=== PATIENT | female | born 1935 ===

== ENCOUNTER 2018-12-17 18:34 | Inpatient (IN) | payer MEDICARE ==
--- NOTE | 2018-12-17 19:59 | ED PDOC ---
HPI: Trauma/Fall - HPI Time Seen by Provider: 12/17/18 19:21 Chief Complaint (Nursing): Trauma Chief Complaint (Provider): Trauma History Per: Family (step-daughters) History/Exam Limitations: clinical condition Additional Complaint(s): 83 year old female with past history of dementia, arrives to the emergency department with step-daughters for an evaluation of possible fall injury. Step-daughters states that they came to visit the patient at home when they found her on the ground, possible since last night. Unable to determine events leading up to fall due to patient's clinical condition. Step-daughters report possible pain emanating from hip as patient appears with grimace upon movement, although, the patient actively denies experiencing pain. PCP: none provided Past Medical History Reviewed: Historical Data, Nursing Documentation, Vital Signs Vital Signs: Last Vital Signs Temp 98.4 F 12/17/18 18:36 Pulse 130 H 12/17/18 18:36 Resp 16 12/17/18 18:36 BP 142/89 12/17/18 18:36 Pulse Ox 96 12/17/18 18:36 - Medical History PMH: Dementia Denies: Chronic Kidney Disease - Family History Family History: States: Unknown Family Hx - Allergies Allergies/Adverse Reactions: Allergies Allergy/AdvReac Type Severity Reaction Status Date / Time No Known Allergies Allergy Verified 12/17/18 18:41 Review of Systems Review Of Systems: ROS cannot be obtained secondary to pt's inabilty to answer questions. Physical Exam - Reviewed Nursing Documentation Reviewed: Yes Vital Signs Reviewed: Yes - Physical Exam Appears: Positive for: Non-toxic, No Acute Distress Head Exam: Positive for: ATRAUMATIC, NORMAL INSPECTION, NORMOCEPHALIC Skin: Positive for: Normal Color Eye Exam: Positive for: Normal appearance, EOMI, PERRL Neck: Positive for: Normal, Painless ROM, Supple. Negative for: Pain On Movement Of Neck (or palpation) Cardiovascular/Chest: Positive for: Regular Rate, Rhythm. Negative for: Murmur Respiratory: Positive for: Normal Breath Sounds. Negative for: Respiratory Distress Gastrointestinal/Abdominal: Positive for: Normal Exam, Soft. Negative for: Tenderness Back: Positive for: Other (satge II sacral ulcers without pus or discharge). Negative for: Decreased ROM (or hip tenderness bilaterally) Extremity: Positive for: Normal ROM (upper/lower). 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 Unaware of the current city. Able to confirm ). Negative for: Oriented - Laboratory Results Result Diagrams: 12/17/18 21:58 12/17/18 21:58 - ECG O2 Sat by Pulse Oximetry: 96 (RA) Pulse Ox Interpretation: Normal Medical Decision Making Medical Decision Making: Time: 1929 Initial Plan: work up for possible syncope, prolonged immobility, and new sacral ulcers * Labs * CT head * EKG * CXR * XR lumbar spine * XR hip (ABNER) * Blood culture Time: 2116 --CT head FINDINGS: BRAIN No acute intraparenchymal hemorrhage. No mass lesion. No CT evidence for acute territorial infarct. No midline shift or extra-axial collections. There is moderate age-appropriate cerebral/cerebellar atrophy. There are bilateral periventricular and subcortical white matter hyperlucencies compatible with mild chronic microvascular disease. VENTRICLES: No hydrocephalus. VASCULAR: Atherosclerotic vascular plaquing is noted within the carotid siphons bilaterally. ORBITS: The orbits are unremarkable. SINUSES AND MASTOIDS: The paranasal sinuses and mastoid air cells are clear. BONES: No fracture. SOFT TISSUES: Unremarkable. IMPRESSION: 1. No acute intracranial abnormality. 2. Age-appropriate moderate diffuse cerebral/cerebellar atrophy. 3. Mild chronic microvascular disease. 4. Atherosclerotic vascular plaquing within the carotid siphons bilaterally. Scribe Attestation: Documented by Maria Eugenia Ventura, acting as a scribe for Ree Ray MD. Provider Scribe Attestation: All medical record entries made by the Scribe were at my direction and personally dictated by me. I have reviewed the chart and agree that the record accurately reflects my personal performance of the history, physical exam, medical decision making, and the department course for this patient. I have also personally directed, reviewed, and agree with the discharge instructions and disposition. Disposition - Clinical Impression Clinical Impression: Syncope and collapse, Dehydration - Disposition Disposition Time: 23:00 Condition: GUARDED
[2018-12-17 22:18] LABS: VENOUS BLOOD GAS BASE EXCESS 6.1 mmol/L (0.0-2.0); VENOUS BLOOD GAS PCO2 46 mmHg (40-60); VENOUS BLOOD GAS PO2 41 mm/Hg (30-55); VENOUS BLOOD PH 7.44 (7.32-7.43)
[2018-12-17 22:28] LABS: PROTHROMBIN TIME 11.9 Seconds (9.8-13.1)
[2018-12-17 22:30] LABS: BASO % 0.1 % (0.0-2.0); EOS % 0.1 % (0.0-4.0); HEMOGLOBIN 12.9 g/dL (12.0-16.0); LYMPH # 1.1 K/uL (1.0-4.3); LYMPH % 9.4 % (20.0-40.0); MEAN CELL VOLUME 88.1 fl (81.0-99.0); MEAN CORPUSCULAR HEMOGLOBIN 28.9 pg (27.0-31.0); MEAN CORPUSCULAR HGB CONC 32.8 g/dL (33.0-37.0); MEAN PLATELET VOLUME 8.1 fl (7.2-11.7); MONO # 1.2 K/uL (0.0-0.8); MONO % 10.3 % (0.0-10.0); NEUT # 9.1 K/uL (1.8-7.0); NEUT % 80.1 % (50.0-75.0); PLATELET COUNT 198 K/uL (130-400); RBC 4.45 Mil/uL (3.80-5.20); RED CELL DISTRIBUTION WIDTH 14.4 % (11.5-14.5); WHITE BLOOD COUNT 11.3 K/uL (4.8-10.8)
[2018-12-17 22:31] LABS: PARTIAL THROMBOPLASTIN TIME 28.4 Seconds (25.6-37.1)
[2018-12-17 22:34] LABS: ALB/GLOB RATIO 1.2 (1.0-2.1); ALBUMIN 3.7 g/dL (3.5-5.0); ALT/SGPT 27 U/L (9-52); AST/SGOT 64 U/L (14-36); BLOOD UREA NITROGEN 24 mg/dl (7-17); CALCIUM 9.9 mg/dL (8.4-10.2); GFR NON-AFRICAN AMERICAN > 60
[2018-12-17 23:07] LABS: B-TYPE NATRIURETIC PEPTIDE 2180 pg/ml (0-900)
[2018-12-17] MEDS ORDERED: Sodium Chloride 0.9% 1,000 ML IV STA (23:10)
[2018-12-17 23:22] LABS: BANDS 4 % (0-2); LYMPHOCYTE 10 % (20-50); MONOCYTE 11 % (0-10); NEUTROPHIL 75 % (42-75); PLATELET ESTIMATE NORMAL (NORMAL); TOTAL CELLS COUNTED 100
[2018-12-18] MEDS ORDERED: Potassium Chloride 40 MEQ in Sodium Chloride 0.45% 1,000 ML IV SCH (01:15)
--- NOTE | 2018-12-18 01:18 | CP.PCM.HP ---
<LunaMatheuso - Last Filed: 12/18/18 03:58> History of Present Illness - History of Present Illness History of Present Illness: 83 y/o F with a PMHx of dementia was brought to ED due to AMS and s/p fall. No family members at bedside to provide Hx. On chart review: step-daughters visited patient at her home, pt was found on the ground, possible since last night, likely after a fall. Unable to determine events leading up to fall due to patient's clinical condition. Pt unable to bear weight on the right side. --On interview: pt only oriented to person. Pt able to speak but unable to state the reason for her ED visit. Pt does not know where shes is, current year or current month. PCP: none provided Unable to obtain history. ED Course: --Vital signs with mild tachycardia. --CBC showed leukocytosis, CMP showed hypokalemia. --Troponin elevated 0.2460. --Pro-BNP 2180-high --Head CT: No acute intracranial abnormality. Age-appropriate moderate diffuse cerebral/cerebellar atrophy. Mild chronic microvascular disease. Atherosclerotic vascular plaquing within the carotid siphons bilaterally. --CXR showed cardiomegaly. --EKG: sinus tachycardia and LBBB. --IV fluid administered. --Urinary straight cath at ED. Present on Admission - Present on Admission Any Indicators Present on Admission: Yes Decubitus Ulcer Present: Yes (Sacral) Decubitus Ulcer Stage: Unstageable Review of Systems - Review of Systems Systems not reviewed;Unavailable: Dementia Past Patient History - Past Social History Smoking Status: Never Smoked - CARDIAC Hx Cardiac Disorders: No - PULMONARY Hx Respiratory Disorders: No - NEUROLOGICAL Hx Dementia: Yes - HEENT Hx HEENT Problems: No - RENAL Hx Chronic Kidney Disease: No - ENDOCRINE/METABOLIC Hx Endocrine Disorders: No - HEMATOLOGICAL/ONCOLOGICAL Hx Blood Disorders: No - INTEGUMENTARY Hx Dermatological Problems: No - MUSCULOSKELETAL/RHEUMATOLOGICAL Hx Musculoskeletal Disorders: No - GASTROINTESTINAL Hx Gastrointestinal Disorders: No - GENITOURINARY/GYNECOLOGICAL Hx Genitourinary Disorders: No - PSYCHIATRIC Hx Psychophysiologic Disorder: No Hx Substance Use: No - SURGICAL HISTORY Hx Surgeries: Yes Other/Comment: 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 - ANESTHESIA Hx Anesthesia: Yes Hx Anesthesia Reactions: No Hx Malignant Hyperthermia: No Meds Allergies/Adverse Reactions: Allergies Allergy/AdvReac Type Severity Reaction Status Date / Time No Known Allergies Allergy Verified 12/17/18 18:41 Physical Exam - Constitutional Appears: No Acute Distress, Confused - Head Exam Head Exam: ATRAUMATIC, NORMOCEPHALIC - Eye Exam Eye Exam: EOMI, PERRL - ENT Exam ENT Exam: Mucous Membranes Dry - Neck Exam Neck exam: Positive for: Full Rom. Negative for: Lymphadenopathy, Tenderness - Respiratory Exam Respiratory Exam: NORMAL BREATHING PATTERN. absent: Rales, Rhonchi, Wheezes, Respiratory Distress - Cardiovascular Exam Cardiovascular Exam: Tachycardia, +S1, +S2 - GI/Abdominal Exam GI & Abdominal Exam: Soft. absent: Distended, Firm, Guarding, Tenderness - Extremities Exam Extremities exam: Negative for: calf tenderness, pedal edema - Neurological Exam Neurological exam: Altered Results - Vital Signs Recent Vital Signs: Last Vital Signs Temp 98.4 F 12/17/18 18:36 Pulse 122 H 12/17/18 23:56 Resp 25 H 12/17/18 23:56 BP 114/71 12/17/18 23:56 Pulse Ox 96 12/18/18 00:04 - Labs Result Diagrams: 12/17/18 21:58 12/17/18 21:58 Labs: Laboratory Results - last 24 hr 12/17/18 12/17/18 12/17/18 21:58 21:58 21:58 WBC 11.3 H RBC 4.45 Hgb 12.9 Hct 39.2 MCV 88.1 MCH 28.9 MCHC 32.8 L RDW 14.4 Plt Count 198 MPV 8.1 Neut % (Auto) 80.1 H Lymph % (Auto) 9.4 L [place] % (Auto) 10.3 H Eos % (Auto) 0.1 Baso % (Auto) 0.1 Neut # (Auto) 9.1 H Lymph # (Auto) 1.1 [place] # (Auto) 1.2 H Eos # (Auto) 0.0 Baso # (Auto) 0.0 Neutrophils % (Manual) 75 Band Neutrophils % 4 H Lymphocytes % (Manual) 10 L Monocytes % (Manual) 11 H Platelet Estimate Normal RBC Morphology Normal PT 11.9 INR 1.0 APTT 28.4 pO2 VBG pH VBG pCO2 VBG HCO3 VBG Total CO2 VBG O2 Sat (Calc) VBG Base Excess VBG Potassium Glucose Lactate FiO2 Sodium 141 Potassium 3.5 L Chloride 104 Carbon Dioxide 30 Anion Gap 11 BUN 24 H Creatinine 0.5 L Est GFR ( Amer) > 60 Est GFR (Non-Af Amer) > 60 Random Glucose 107 H Calcium 9.9 Total Bilirubin 0.8 AST 64 H ALT 27 Alkaline Phosphatase 95 Troponin I 0.2460 H* NT-Pro-B Natriuret Pep 2180 H Total Protein 6.8 Albumin 3.7 Globulin 3.1 Albumin/Globulin Ratio 1.2 Venous Blood Potassium Blood Type Antibody Screen BBK History Checked 12/17/18 12/17/18 21:58 22:12 WBC RBC Hgb Hct MCV MCH MCHC RDW Plt Count MPV Neut % (Auto) Lymph % (Auto) [place] % (Auto) Eos % (Auto) Baso % (Auto) Neut # (Auto) Lymph # (Auto) [place] # (Auto) Eos # (Auto) Baso # (Auto) Neutrophils % (Manual) Band Neutrophils % Lymphocytes % (Manual) Monocytes % (Manual) Platelet Estimate RBC Morphology PT INR APTT pO2 41 VBG pH 7.44 H VBG pCO2 46 VBG HCO3 29.2 VBG Total CO2 32.6 H VBG O2 Sat (Calc) 82.3 H VBG Base Excess 6.1 H VBG Potassium 3.8 Glucose 111 H Lactate 1.2 FiO2 21.0 Sodium 141.0 Potassium Chloride 106.0 Carbon Dioxide Anion Gap BUN Creatinine Est GFR ( Amer) Est GFR (Non-Af Amer) Random Glucose Calcium Total Bilirubin AST ALT Alkaline Phosphatase Troponin I NT-Pro-B Natriuret Pep Total Protein Albumin Globulin Albumin/Globulin Ratio Venous Blood Potassium 3.8 Blood Type O POSITIVE Antibody Screen Negative BBK History Checked No verified bt Assessment & Plan - Assessment and Plan (Free Text) Assessment: 83 y/o F with a PMHx of dementia was admitted for evaluation and management of altered mental status and s/p fall. PLAN: >Altered Mental Status --Afebrile, tachycardia, mild leukocytosis, mild hypokalemia, Head CT unremarkable. --Likely aggravation of dementia, need to rule out delirium, ?seizures/post- ictal, drug/alcohol intox. --Troponin elevated 0.2460. --Pro-BNP 2180-high --F/U dementia work-up --Need to f/u CPK levels. --Will re-evaluate and consider call family for Hx details. >S/P fall --At high risk of fall, ?syncope --Physical therapy/Occupational therapy eval and treat ordered. --Orthostatic BP measurement ordered. --Complete bed rest for now --Pt may need more supervision or activities modification. >Abnormal EKG/elevated troponin --Sinus tachycardia and LBBB on EKG --Troponin elevated 0.2460. Possibly --Pro-BNP 2180-high --CXR showed cardiomegaly. --Cardiology consult, Dr Chen >Hypokalemia --Serum K+ 3.5 --IV NSS with 30mEq ofg KCl ordered --F/U labs. >DTI --Sacral ulcer, unstageable --Wound care nurse consult. >DVT Prophylaxis --SCD's for now --Consider Lovenox after hemorrhage is ruled out. Case discussed with Dr Ron. Jeremy PGY-2 - Date & Time Date: 12/18/18 Time: 02:00 <Zac Ron - Last Filed: 12/18/18 10:35> Results - Vital Signs Recent Vital Signs: Last Vital Signs Temp 98.5 F 12/18/18 08:00 Pulse 108 H 12/18/18 08:00 Resp 18 12/18/18 08:00 BP 129/74 12/18/18 08:00 Pulse Ox 94 L 12/18/18 08:00 - Labs Result Diagrams: 12/18/18 04:31 12/18/18 04:31 Labs: Laboratory Results - last 24 hr 12/17/18 12/17/18 12/17/18 21:58 21:58 21:58 WBC 11.3 H RBC 4.45 Hgb 12.9 Hct 39.2 MCV 88.1 MCH 28.9 MCHC 32.8 L RDW 14.4 Plt Count 198 MPV 8.1 Neut % (Auto) 80.1 H Lymph % (Auto) 9.4 L [place] % (Auto) 10.3 H Eos % (Auto) 0.1 Baso % (Auto) 0.1 Neut # (Auto) 9.1 H Lymph # (Auto) 1.1 [place] # (Auto) 1.2 H Eos # (Auto) 0.0 Baso # (Auto) 0.0 Neutrophils % (Manual) 75 Band Neutrophils % 4 H Lymphocytes % (Manual) 10 L Monocytes % (Manual) 11 H Platelet Estimate Normal RBC Morphology Normal PT 11.9 INR 1.0 APTT 28.4 pO2 VBG pH VBG pCO2 VBG HCO3 VBG Total CO2 VBG O2 Sat (Calc) VBG Base Excess VBG Potassium Glucose Lactate FiO2 Sodium 141 Potassium 3.5 L Chloride 104 Carbon Dioxide 30 Anion Gap 11 BUN 24 H Creatinine 0.5 L Est GFR ( Amer) > 60 Est GFR (Non-Af Amer) > 60 Random Glucose 107 H Calcium 9.9 Magnesium Total Bilirubin 0.8 AST 64 H ALT 27 Alkaline Phosphatase 95 Total Creatine Kinase Troponin I 0.2460 H* NT-Pro-B Natriuret Pep 2180 H Total Protein 6.8 Albumin 3.7 Globulin 3.1 Albumin/Globulin Ratio 1.2 Vitamin B12 TSH 3rd Generation Venous Blood Potassium Urine Color Urine Clarity Urine pH Ur Specific [place] Urine Protein Urine Glucose (UA) Urine Ketones Urine Blood Urine Nitrate Urine Bilirubin Urine Urobilinogen Ur Leukocyte Esterase Urine RBC (Auto) Urine Microscopic WBC Ur Squamous Epith Cells Urine Bacteria Urine Opiates Screen Urine Methadone Screen Ur Barbiturates Screen Ur Phencyclidine Scrn Ur Amphetamines Screen U Benzodiazepines Scrn U Oth Cocaine Metabols U Cannabinoids Screen HIV-1 Ab Rapid Screen Blood Type Blood Type Confirm Antibody Screen BBK History Checked 12/17/18 12/17/18 12/18/18 21:58 22:12 04:31 WBC RBC Hgb Hct MCV MCH MCHC RDW Plt Count MPV Neut % (Auto) Lymph % (Auto) [place] % (Auto) Eos % (Auto) Baso % (Auto) Neut # (Auto) Lymph # (Auto) [place] # (Auto) Eos # (Auto) Baso # (Auto) Neutrophils % (Manual) Band Neutrophils % Lymphocytes % (Manual) Monocytes % (Manual) Platelet Estimate RBC Morphology PT INR APTT pO2 41 VBG pH 7.44 H VBG pCO2 46 VBG HCO3 29.2 VBG Total CO2 32.6 H VBG O2 Sat (Calc) 82.3 H VBG Base Excess 6.1 H VBG Potassium 3.8 Glucose 111 H Lactate 1.2 FiO2 21.0 Sodium 141.0 Potassium Chloride 106.0 Carbon Dioxide Anion Gap BUN Creatinine Est GFR ( Amer) Est GFR (Non-Af Amer) Random Glucose Calcium Magnesium Total Bilirubin AST ALT Alkaline Phosphatase Total Creatine Kinase Troponin I NT-Pro-B Natriuret Pep Total Protein Albumin Globulin Albumin/Globulin Ratio Vitamin B12 TSH 3rd Generation Venous Blood Potassium 3.8 Urine Color Urine Clarity Urine pH Ur Specific [place] Urine Protein Urine Glucose (UA) Urine Ketones Urine Blood Urine Nitrate Urine Bilirubin Urine Urobilinogen Ur Leukocyte Esterase Urine RBC (Auto) Urine Microscopic WBC Ur Squamous Epith Cells Urine Bacteria Urine Opiates Screen Urine Methadone Screen Ur Barbiturates Screen Ur Phencyclidine Scrn Ur Amphetamines Screen U Benzodiazepines Scrn U Oth Cocaine Metabols U Cannabinoids Screen HIV-1 Ab Rapid Screen Blood Type O POSITIVE Blood Type Confirm O POSITIVE Antibody Screen Negative BBK History Checked No verified bt 12/18/18 12/18/18 12/18/18 04:31 04:31 06:31 WBC 9.6 RBC 4.23 Hgb 12.3 Hct 37.7 MCV 89.0 MCH 29.0 MCHC 32.5 L RDW 14.4 Plt Count 181 MPV 7.9 Neut % (Auto) 81.6 H Lymph % (Auto) 9.5 L [place] % (Auto) 8.6 Eos % (Auto) 0.1 Baso % (Auto) 0.2 Neut # (Auto) 7.8 H Lymph # (Auto) 0.9 L [place] # (Auto) 0.8 Eos # (Auto) 0.0 Baso # (Auto) 0.0 Neutrophils % (Manual) Band Neutrophils % Lymphocytes % (Manual) Monocytes % (Manual) Platelet Estimate RBC Morphology PT INR APTT pO2 VBG pH VBG pCO2 VBG HCO3 VBG Total CO2 VBG O2 Sat (Calc) VBG Base Excess VBG Potassium Glucose Lactate FiO2 Sodium 141 Potassium 3.4 L Chloride 105 Carbon Dioxide 32 H Anion Gap 7 L BUN 24 H Creatinine 0.5 L Est GFR ( Amer) > 60 Est GFR (Non-Af Amer) > 60 Random Glucose 100 Calcium 9.0 Magnesium 2.0 Total Bilirubin AST ALT Alkaline Phosphatase Total Creatine Kinase 877 H Troponin I 0.1760 H* NT-Pro-B Natriuret Pep Total Protein Albumin Globulin Albumin/Globulin Ratio Vitamin B12 235 L TSH 3rd Generation 0.53 Venous Blood Potassium Urine Color Urine Clarity Urine pH Ur Specific [place] Urine Protein Urine Glucose (UA) Urine Ketones Urine Blood Urine Nitrate Urine Bilirubin Urine Urobilinogen Ur Leukocyte Esterase Urine RBC (Auto) Urine Microscopic WBC Ur Squamous Epith Cells Urine Bacteria Urine Opiates Screen Urine Methadone Screen Ur Barbiturates Screen Ur Phencyclidine Scrn Ur Amphetamines Screen U Benzodiazepines Scrn U Oth Cocaine Metabols U Cannabinoids Screen HIV-1 Ab Rapid Screen Non reactive Blood Type Blood Type Confirm Antibody Screen BBK History Checked 12/18/18 12/18/18 07:05 07:07 WBC RBC Hgb Hct MCV MCH MCHC RDW Plt Count MPV Neut % (Auto) Lymph % (Auto) [place] % (Auto) Eos % (Auto) Baso % (Auto) Neut # (Auto) Lymph # (Auto) [place] # (Auto) Eos # (Auto) Baso # (Auto) Neutrophils % (Manual) Band Neutrophils % Lymphocytes % (Manual) Monocytes % (Manual) Platelet Estimate RBC Morphology PT INR APTT pO2 VBG pH VBG pCO2 VBG HCO3 VBG Total CO2 VBG O2 Sat (Calc) VBG Base Excess VBG Potassium Glucose Lactate FiO2 Sodium Potassium Chloride Carbon Dioxide Anion Gap BUN Creatinine Est GFR ( Amer) Est GFR (Non-Af Amer) Random Glucose Calcium Magnesium Total Bilirubin AST ALT Alkaline Phosphatase Total Creatine Kinase Troponin I NT-Pro-B Natriuret Pep Total Protein Albumin Globulin Albumin/Globulin Ratio Vitamin B12 TSH 3rd Generation Venous Blood Potassium Urine Color Yellow Urine Clarity Slighty-cloudy Urine pH 5.0 Ur Specific [place] 1.021 Urine Protein 100 Urine Glucose (UA) Neg Urine Ketones 20 Urine Blood Large Urine Nitrate Positive H Urine Bilirubin Negative Urine Urobilinogen 0.2-1.0 Ur Leukocyte Esterase Neg Urine RBC (Auto) 3 Urine Microscopic WBC < 1 Ur Squamous Epith Cells < 1 Urine Bacteria Many H Urine Opiates Screen Negative Urine Methadone Screen Negative Ur Barbiturates Screen Negative Ur Phencyclidine Scrn Negative Ur Amphetamines Screen Negative U Benzodiazepines Scrn Negative U Oth Cocaine Metabols Negative U Cannabinoids Screen Negative HIV-1 Ab Rapid Screen Blood Type Blood Type Confirm Antibody Screen BBK History Checked Attending/Attestation - Attestation I have personally seen and examined this patient.: Yes I have fully participated in the care of the patient.: Yes I have reviewed all pertinent clinical information: Yes Notes (Text): 12/18/18 10:10 I saw, examined and discussed this patient with Dr Luna. i agree with the assessment and plan outlined. This is an 83 years old female with hx of dementia who was found lying at her home for unknown period of time. Apparently she has difficulty in bearing weight on the right side but denies pain. CT head, X ray of chest, hips and lumbar spine showed no overt abnormality. We will treat for Altered Mental status due to worsening dementia and probable fall. R/O UTI in the elderly. Treat Dehydration and Hypokalemia. The Elevated Troponin could be due to the Rhabdomyolisis. Follow serial Troponin, Cardiology will be consulted Zac Ron MD
[2018-12-18 04:51] LABS: BASO % 0.2 % (0.0-2.0); EOS % 0.1 % (0.0-4.0); HEMOGLOBIN 12.3 g/dL (12.0-16.0); LYMPH # 0.9 K/uL (1.0-4.3); LYMPH % 9.5 % (20.0-40.0); MEAN CORPUSCULAR HGB CONC 32.5 g/dL (33.0-37.0); MEAN PLATELET VOLUME 7.9 fl (7.2-11.7); MONO # 0.8 K/uL (0.0-0.8); MONO % 8.6 % (0.0-10.0); NEUT # 7.8 K/uL (1.8-7.0); NEUT % 81.6 % (50.0-75.0); RBC 4.23 Mil/uL (3.80-5.20); RED CELL DISTRIBUTION WIDTH 14.4 % (11.5-14.5); WHITE BLOOD COUNT 9.6 K/uL (4.8-10.8)
[2018-12-18 04:58] LABS: BLOOD UREA NITROGEN 24 mg/dl (7-17); GFR NON-AFRICAN AMERICAN > 60
[2018-12-18] MEDS ORDERED: Potassium Chloride 20 mEq/15 ml LIQ UD PO ONE (05:38)
[2018-12-18 07:25] LABS: SQUAMOUS EPITHIAL < 1 /hpf (0-5); URINE BACTERIA MANY (<OCC); URINE BILIRUBIN NEGATIVE (NEGATIVE); URINE BLOOD LARGE (NEGATIVE); URINE CLARITY SLIGHTY-CLOUDY (Clear); URINE COLOR YELLOW (YELLOW); URINE GLUCOSE (UA) NEG (NEGATIVE); URINE LEUKOCYTE ESTERASE NEG Leu/uL (Negative); URINE PROTEIN 100 mg/dL (NEGATIVE); URINE UROBILINOGEN 0.2-1.0 mg/dL (0.2-1.0)
[2018-12-18 07:30] LABS: BARBITURATES, UR NEGATIVE (NEGATIVE); BENZODIAZEPINES, UR NEGATIVE (NEGATIVE); OPIATES, UR NEGATIVE (NEGATIVE); PHENCYCLIDINE, UR NEGATIVE (NEGATIVE)
--- NOTE | 2018-12-18 08:35 | CT ---
Date of service: 12/17/2018 PROCEDURE: CT HEAD WITHOUT CONTRAST. HISTORY: AMS, fall COMPARISON: None available. TECHNIQUE: Axial computed tomography images were obtained through the head/brain without intravenous contrast. Radiation dose: Total exam DLP = 801.45 mGy-cm. This CT exam was performed using one or more of the following dose reduction techniques: Automated exposure control, adjustment of the mA and/or kV according to patient size, and/or use of iterative reconstruction technique. FINDINGS: HEMORRHAGE: No intracranial hemorrhage. BRAIN: No mass effect or edema. Mild diffuse age-appropriate atrophy. Moderate patchy and confluent periventricular and deep white matter lucency consistent with microvascular white matter ischemic change. No evidence of acute infarct. VENTRICLES: Unremarkable. No hydrocephalus. CALVARIUM: Unremarkable. PARANASAL SINUSES: Unremarkable as visualized. No significant inflammatory changes. MASTOID AIR CELLS: Unremarkable as visualized. No inflammatory changes. OTHER FINDINGS: None. IMPRESSION: No intracranial mass, hemorrhage or evidence of acute infarct. Chronic white matter ischemic change. The preliminary findings for this examination were reported by [facility] at 9:17 p.m. on 12/17/2018. There is concurrence of this report with the preliminary findings.
--- NOTE | 2018-12-18 08:45 | CARD ---
APPROVED REPORT Date of service: 12/17/2018 EKG Measurement Heart [id number] <Conclusion> Sinus tachycardia Left bundle branch block Abnormal ECG
--- NOTE | 2018-12-18 09:30 | CP.PCM.CON ---
History of Present Illness - History of Present Illness History of Present Illness: This 83-year-old female who lives alone and is being checked regularly by her family including her who lives in an upstairs apartment, was brought to the emergency room after having fallen at home and was unable to help her self. She was probably on the ground for more than 12 hours. According to her daughter that she is gradually developing cognitive deficit. She is mostly at home and her family does shopping for her and some part of cooking as well. She is able to ambulate in her apartment and otherwise looks after herself. She does tend to be confused about recent events. She was not able to explain how she arrived at the hospital or for what particular reason. There has been no prior falling at home. The patient has had a breast malignancy which has been operated upon and there has not been any recurrence for the last 4-5 years. She has been taking an oral hormone suppressing pill for the same. Hypertension or diabetes and has not been hospitalized for any other illness other than her breast malignancy. She has never been a smoker and has never suffered a myocardial infarction or symptoms of congestive cardiac failure. Physical examination shows an elderly lady who answers simple questions readily but is confused about recent events. She was afebrile awake and alert. Her respiratory rate was 14 breaths/min and her heart rate was 64 bpm and regular. Her jugular venous pressure was not elevated and there was no edema over lower extremity. Her blood pressure was 134/80 mmHg. The pedal pulses were feeble but distinctly present. There were no carotid bruits. Thyroid was not enlarged. Extremities were warm and nailbeds were pink. There was no central or peripheral cyanosis. [place] was not palpable the first and second heart sounds were normal. There was no murmur or gallop. There were no rales. Her abdomen was soft liver and spleen were not palpable. Her electrocardiogram showed sinus tachycardia with a left bundle branch block pattern. No prior electrocardiogram was available for comparison. Her lab data showed elevated troponin with total CK level elevated to approximately 7 times the upper limit of normal. The rest of the labs were noted. Impression:: Elevated troponin most likely due to rhabdomyolysis secondary to muscle injury secondary to the fall as well as a prolonged period of lying on the floor. Left bundle branch block. 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 The patient will have an echocardiogram to evaluate her left ventricular systolic function. No evidence of acute coronary syndrome was detected here. Past Patient History - Past Social History Smoking Status: Never Smoked - CARDIAC Hx Cardiac Disorders: No - PULMONARY Hx Respiratory Disorders: No - NEUROLOGICAL Hx Dementia: Yes - HEENT Hx HEENT Problems: No - RENAL Hx Chronic Kidney Disease: No - ENDOCRINE/METABOLIC Hx Endocrine Disorders: No - HEMATOLOGICAL/ONCOLOGICAL Hx Blood Disorders: No - INTEGUMENTARY Hx Dermatological Problems: No - MUSCULOSKELETAL/RHEUMATOLOGICAL Hx Musculoskeletal Disorders: No - GASTROINTESTINAL Hx Gastrointestinal Disorders: No - GENITOURINARY/GYNECOLOGICAL Hx Genitourinary Disorders: No - PSYCHIATRIC Hx Psychophysiologic Disorder: No Hx Substance Use: No - SURGICAL HISTORY Hx Surgeries: Yes Other/Comment: 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 - ANESTHESIA Hx Anesthesia: Yes Hx Anesthesia Reactions: No Hx Malignant Hyperthermia: No Meds Allergies/Adverse Reactions: Allergies Allergy/AdvReac Type Severity Reaction Status Date / Time No Known Allergies Allergy Verified 12/17/18 18:41 - Medications Medications: Current Medications Cyanocobalamin (Vitamin B12 1000 Mcg/Ml Inj) 1,000 mcg IM DAILY [facility] Potassium Chloride 40 meq/ (Sodium Chloride) 1,020 mls @ 125 mls/hr IV .[id number] [facility] Stop: 12/18/18 09:24 Last Admin: 12/18/18 02:00 Dose: 125 mls/hr Results - Vital Signs Recent Vital Signs: Last Vital Signs Temp 98.5 F 12/18/18 08:00 Pulse 108 H 12/18/18 08:00 Resp 18 12/18/18 08:00 BP 129/74 12/18/18 08:00 Pulse Ox 94 L 12/18/18 08:00 - Labs Result Diagrams: 12/18/18 04:31 12/18/18 04:31 Labs: Laboratory Results - last 24 hr 12/17/18 12/17/18 12/17/18 21:58 21:58 21:58 WBC 11.3 H RBC 4.45 Hgb 12.9 Hct 39.2 MCV 88.1 MCH 28.9 MCHC 32.8 L RDW 14.4 Plt Count 198 MPV 8.1 Neut % (Auto) 80.1 H Lymph % (Auto) 9.4 L [place] % (Auto) 10.3 H Eos % (Auto) 0.1 Baso % (Auto) 0.1 Neut # (Auto) 9.1 H Lymph # (Auto) 1.1 [place] # (Auto) 1.2 H Eos # (Auto) 0.0 Baso # (Auto) 0.0 Neutrophils % (Manual) 75 Band Neutrophils % 4 H Lymphocytes % (Manual) 10 L Monocytes % (Manual) 11 H Platelet Estimate Normal RBC Morphology Normal PT 11.9 INR 1.0 APTT 28.4 pO2 VBG pH VBG pCO2 VBG HCO3 VBG Total CO2 VBG O2 Sat (Calc) VBG Base Excess VBG Potassium Glucose Lactate FiO2 Sodium 141 Potassium 3.5 L Chloride 104 Carbon Dioxide 30 Anion Gap 11 BUN 24 H Creatinine 0.5 L Est GFR ( Amer) > 60 Est GFR (Non-Af Amer) > 60 Random Glucose 107 H Calcium 9.9 Magnesium Total Bilirubin 0.8 AST 64 H ALT 27 Alkaline Phosphatase 95 Total Creatine Kinase Troponin I 0.2460 H* NT-Pro-B Natriuret Pep 2180 H Total Protein 6.8 Albumin 3.7 Globulin 3.1 Albumin/Globulin Ratio 1.2 Vitamin B12 TSH 3rd Generation Venous Blood Potassium Urine Color Urine Clarity Urine pH Ur Specific [place] Urine Protein Urine Glucose (UA) Urine Ketones Urine Blood Urine Nitrate Urine Bilirubin Urine Urobilinogen Ur Leukocyte Esterase Urine RBC (Auto) Urine Microscopic WBC Ur Squamous Epith Cells Urine Bacteria Urine Opiates Screen Urine Methadone Screen Ur Barbiturates Screen Ur Phencyclidine Scrn Ur Amphetamines Screen U Benzodiazepines Scrn U Oth Cocaine Metabols U Cannabinoids Screen HIV-1 Ab Rapid Screen Blood Type Blood Type Confirm Antibody Screen BBK History Checked 12/17/18 12/17/18 12/18/18 21:58 22:12 04:31 WBC RBC Hgb Hct MCV MCH MCHC RDW Plt Count MPV Neut % (Auto) Lymph % (Auto) [place] % (Auto) Eos % (Auto) Baso % (Auto) Neut # (Auto) Lymph # (Auto) [place] # (Auto) Eos # (Auto) Baso # (Auto) Neutrophils % (Manual) Band Neutrophils % Lymphocytes % (Manual) Monocytes % (Manual) Platelet Estimate RBC Morphology PT INR APTT pO2 41 VBG pH 7.44 H VBG pCO2 46 VBG HCO3 29.2 VBG Total CO2 32.6 H VBG O2 Sat (Calc) 82.3 H VBG Base Excess 6.1 H VBG Potassium 3.8 Glucose 111 H Lactate 1.2 FiO2 21.0 Sodium 141.0 Potassium Chloride 106.0 Carbon Dioxide Anion Gap BUN Creatinine Est GFR ( Amer) Est GFR (Non-Af Amer) Random Glucose Calcium Magnesium Total Bilirubin AST ALT Alkaline Phosphatase Total Creatine Kinase Troponin I NT-Pro-B Natriuret Pep Total Protein Albumin Globulin Albumin/Globulin Ratio Vitamin B12 TSH 3rd Generation Venous Blood Potassium 3.8 Urine Color Urine Clarity Urine pH Ur Specific [place] Urine Protein Urine Glucose (UA) Urine Ketones Urine Blood Urine Nitrate Urine Bilirubin Urine Urobilinogen Ur Leukocyte Esterase Urine RBC (Auto) Urine Microscopic WBC Ur Squamous Epith Cells Urine Bacteria Urine Opiates Screen Urine Methadone Screen Ur Barbiturates Screen Ur Phencyclidine Scrn Ur Amphetamines Screen U Benzodiazepines Scrn U Oth Cocaine Metabols U Cannabinoids Screen HIV-1 Ab Rapid Screen Blood Type O POSITIVE Blood Type Confirm O POSITIVE Antibody Screen Negative BBK History Checked No verified bt 12/18/18 12/18/18 12/18/18 04:31 04:31 06:31 WBC 9.6 RBC 4.23 Hgb 12.3 Hct 37.7 MCV 89.0 MCH 29.0 MCHC 32.5 L RDW 14.4 Plt Count 181 MPV 7.9 Neut % (Auto) 81.6 H Lymph % (Auto) 9.5 L [place] % (Auto) 8.6 Eos % (Auto) 0.1 Baso % (Auto) 0.2 Neut # (Auto) 7.8 H Lymph # (Auto) 0.9 L [place] # (Auto) 0.8 Eos # (Auto) 0.0 Baso # (Auto) 0.0 Neutrophils % (Manual) Band Neutrophils % Lymphocytes % (Manual) Monocytes % (Manual) Platelet Estimate RBC Morphology PT INR APTT pO2 VBG pH VBG pCO2 VBG HCO3 VBG Total CO2 VBG O2 Sat (Calc) VBG Base Excess VBG Potassium Glucose Lactate FiO2 Sodium 141 Potassium 3.4 L Chloride 105 Carbon Dioxide 32 H Anion Gap 7 L BUN 24 H Creatinine 0.5 L Est GFR ( Amer) > 60 Est GFR (Non-Af Amer) > 60 Random Glucose 100 Calcium 9.0 Magnesium 2.0 Total Bilirubin AST ALT Alkaline Phosphatase Total Creatine Kinase 877 H Troponin I 0.1760 H* NT-Pro-B Natriuret Pep Total Protein Albumin Globulin Albumin/Globulin Ratio Vitamin B12 235 L TSH 3rd Generation 0.53 Venous Blood Potassium Urine Color Urine Clarity Urine pH Ur Specific [place] Urine Protein Urine Glucose (UA) Urine Ketones Urine Blood Urine Nitrate Urine Bilirubin Urine Urobilinogen Ur Leukocyte Esterase Urine RBC (Auto) Urine Microscopic WBC Ur Squamous Epith Cells Urine Bacteria Urine Opiates Screen Urine Methadone Screen Ur Barbiturates Screen Ur Phencyclidine Scrn Ur Amphetamines Screen U Benzodiazepines Scrn U Oth Cocaine Metabols U Cannabinoids Screen HIV-1 Ab Rapid Screen Non reactive Blood Type Blood Type Confirm Antibody Screen BBK History Checked 12/18/18 12/18/18 07:05 07:07 WBC RBC Hgb Hct MCV MCH MCHC RDW Plt Count MPV Neut % (Auto) Lymph % (Auto) [place] % (Auto) Eos % (Auto) Baso % (Auto) Neut # (Auto) Lymph # (Auto) [place] # (Auto) Eos # (Auto) Baso # (Auto) Neutrophils % (Manual) Band Neutrophils % Lymphocytes % (Manual) Monocytes % (Manual) Platelet Estimate RBC Morphology PT INR APTT pO2 VBG pH VBG pCO2 VBG HCO3 VBG Total CO2 VBG O2 Sat (Calc) VBG Base Excess VBG Potassium Glucose Lactate FiO2 Sodium Potassium Chloride Carbon Dioxide Anion Gap BUN Creatinine Est GFR ( Amer) Est GFR (Non-Af Amer) Random Glucose Calcium Magnesium Total Bilirubin AST ALT Alkaline Phosphatase Total Creatine Kinase Troponin I NT-Pro-B Natriuret Pep Total Protein Albumin Globulin Albumin/Globulin Ratio Vitamin B12 TSH 3rd Generation Venous Blood Potassium Urine Color Yellow Urine Clarity Slighty-cloudy Urine pH 5.0 Ur Specific [place] 1.021 Urine Protein 100 Urine Glucose (UA) Neg Urine Ketones 20 Urine Blood Large Urine Nitrate Positive H Urine Bilirubin Negative Urine Urobilinogen 0.2-1.0 Ur Leukocyte Esterase Neg Urine RBC (Auto) 3 Urine Microscopic WBC < 1 Ur Squamous Epith Cells < 1 Urine Bacteria Many H Urine Opiates Screen Negative Urine Methadone Screen Negative Ur Barbiturates Screen Negative Ur Phencyclidine Scrn Negative Ur Amphetamines Screen Negative U Benzodiazepines Scrn Negative U Oth Cocaine Metabols Negative U Cannabinoids Screen Negative HIV-1 Ab Rapid Screen Blood Type Blood Type Confirm Antibody Screen BBK History Checked
--- NOTE | 2018-12-18 14:39 | RAD ---
Date of service: 12/17/2018 PROCEDURE: Radiographs of the Lumbar Spine. HISTORY: lower back pain COMPARISON: No prior. FINDINGS: BONES: There is [id number] compression deformity of T12 vertebral body. There is also mild compression deformity of L1 and slight compression deformity at the superior endplate of L3. Diffuse osteopenic changes are noted. Moderate degenerative changes are noted. DISC SPACES: There is anterior spondylolisthesis of L4 relative to L5. OTHER FINDINGS: None. IMPRESSION: Multiple compression deformity more prominent at T12. Diffuse osteoporosis. Anterior spondylolisthesis of L4 relative to L5. Moderate degenerative changes. Moderate constipation.
--- NOTE | 2018-12-18 14:43 | RAD ---
PROCEDURE: Radiographs of the pelvis and bilateral hips HISTORY: BL hip pain COMPARISON: None. TECHNIQUE: 2 views obtained. FINDINGS: BONES: Pelvis: Unremarkable. Right hip:No evidence of acute fracture or dislocation. Left hip:No evidence of acute fracture or dislocation. JOINTS: Right hip: Moderate osteoarthritic changes. Left hip: Moderate osteoarthritic changes Sacroiliac Joints: Unremarkable. Pubic symphysis: Unremarkable. SOFT TISSUES: Normal. OTHER FINDINGS: None. IMPRESSION: No evidence of acute fracture or dislocation. Moderate osteoarthritic changes.
[2018-12-18] MEDS: Potassium Chl 20 mEq in NS 1,000 ML IV SCH ×2 (15:40→22:00)
[2018-12-18] MEDS: Enoxaparin 40 mg Syringe SC SCH (15:42)
--- NOTE | 2018-12-18 16:42 | RAD ---
Date of service: 12/17/2018 HISTORY: possible admission COMPARISON: No prior. TECHNIQUE: 1 view obtained. FINDINGS: LUNGS: No active pulmonary disease. PLEURA: No significant pleural effusion identified, no pneumothorax apparent. CARDIOVASCULAR: No aortic atherosclerotic calcification present. Normal cardiac size. No pulmonary vascular congestion. OSSEOUS STRUCTURES: No significant abnormalities. VISUALIZED UPPER ABDOMEN: Normal. OTHER FINDINGS: None. IMPRESSION: No active disease.
[2018-12-18 19:22] VITALS: BMI 28.7
[2018-12-19] MEDS: Potassium Chl 20 mEq in NS 1,000 ML IV SCH ×2 (03:06→08:47)
[2018-12-19 05:40] LABS: HEMOGLOBIN 11.2 g/dL (12.0-16.0); MEAN CELL VOLUME 89.4 fl (81.0-99.0); MEAN CORPUSCULAR HGB CONC 32.4 g/dL (33.0-37.0); RBC 3.86 Mil/uL (3.80-5.20); RED CELL DISTRIBUTION WIDTH 14.6 % (11.5-14.5); WHITE BLOOD COUNT 7.6 K/uL (4.8-10.8)
[2018-12-19 06:01] LABS: BLOOD UREA NITROGEN 28 mg/dl (7-17); CALCIUM 8.9 mg/dL (8.4-10.2); GFR NON-AFRICAN AMERICAN > 60
--- NOTE | 2018-12-19 08:13 | CARD ---
APPROVED REPORT Date of service: 12/18/2018 EXAM: Two-dimensional and M-mode echocardiogram with Doppler and color Doppler. Other Information Quality : AverageRhythm : LBBB INDICATION Abnormal EKG/Arrhythmia 2D DIMENSIONS IVSd1.25 (0.7-1.1cm)LVDd3.38 (3.9-5.9cm) LVOT Diameter1.99 (1.8-2.4cm)PWd1.26 (0.7-1.1cm) IVSs1.45 (0.8-1.2cm)LVDs3.00 (2.5-4.0cm) FS (%) 11.2 %PWs1.49 (0.8-1.2cm) M-Mode DIMENSIONS Left Atrium (MM)3.18 (2.5-4.0cm)IVSd0.97 (0.7-1.1cm) Aortic Root3.38 (2.2-3.7cm)LVDd4.41 (4.0-5.6cm) Aortic Cusp Exc.1.79 (1.5-2.0cm)PWd1.44 (0.7-1.1cm) IVSs1.71 cmFS (%) 33 % LVDs2.97 (2.0-3.8cm)PWs1.88 cm Aortic Valve AoV Peak Ywwrqafk838.4cm/sAoV VTI22.3cmAO Peak GR.10mmHg LVOT Peak Jyyonysw17.9cm/sLVOT VTI13.32cmAO Mean GR.6mmHg CORAL (VMAX)1.62qj8LLL (VTI)1.08cm2 Mitral Valve E/A ratio0.0 TDI E/Lateral E'0.0E/Medial E'0.0 LEFT VENTRICLE The left ventricle is normal size. There is normal left ventricular wall thickness. Left ventricle systolic function is normal. LVEF is 55-60%. Septum had abnormal motion due to LBBB Other segments contracted normally. Transmitral Doppler flow pattern is Grade I-abnormal relaxation pattern. RIGHT VENTRICLE The right ventricle is normal size. There is normal right ventricular wall thickness. The right ventricular systolic function is normal. ATRIA The left atrium size is normal. The right atrium size is normal. AORTIC VALVE The aortic valve is normal in structure. No aortic regurgitation is present. There is no aortic valvular stenosis. MITRAL VALVE The mitral valve is normal in structure. There is no evidence of mitral valve prolapse. There is no mitral valve stenosis. There is no mitral valve regurgitation noted. TRICUSPID VALVE The tricuspid valve is normal in structure. There is no tricuspid valve regurgitation noted. PULMONIC VALVE The pulmonary valve is normal in structure. There is no pulmonic valvular regurgitation. GREAT VESSELS The aortic root is normal in size. The IVC is normal in size and collapses >50% with inspiration. PERICARDIAL EFFUSION There is a small circumferential pericardial effusion. <Conclusion> Echo window was poor and so the images were very poor in quality. The left ventricle is normal size. There is normal left ventricular wall thickness. Septum had abnormal motion due to LBBB Other segments contracted normally. Left ventricle systolic function is normal. LVEF is 55-60%. Transmitral Doppler flow pattern is Grade I-abnormal relaxation pattern.
--- NOTE | 2018-12-19 08:32 | CARD ---
APPROVED REPORT Date of service: 12/18/2018 EKG Measurement Heart [id number] <Conclusion> Sinus tachycardia Possible Left atrial enlargement Anterior infarct, age undetermined Abnormal ECG
[2018-12-19] MEDS: Enoxaparin 40 mg Syringe SC SCH (08:45)
--- NOTE | 2018-12-19 11:24 | CT ---
Date of service: 12/19/2018 PROCEDURE: CT Lumbar Spine without contrast HISTORY: compression fracture T12 COMPARISON: 12/17/2018. Lumbar spine radiographs TECHNIQUE: Axial computed tomography images were obtained of the lumbar spine without the use of intravenous contrast. Coronal and sagittal reformatted images were created and reviewed. Radiation dose: Total exam DLP = 855.46 mGy-cm. This CT exam was performed using one or more of the following dose reduction techniques: Automated exposure control, adjustment of the mA and/or kV according to patient size, and/or use of iterative reconstruction technique. FINDINGS: VERTEBRAE: No evidence of compression deformity. Small node formation T12 vertebral body and L2 vertebral body. DISCS/SPINAL CANAL/NEURAL FORAMINA: L1-2: Unremarkable. L2-3: Unremarkable. L3-4: Bulging annulus fibrosus, posterior element hypertrophy resulting in mild spinal stenosis. L4-5: Grade 1 anterolisthesis. Moderate bulging annulus. Evidence of canal stenosis. L5-S1: Vacuum disc phenomenon. Mild bulging annulus fibrosus. PARASPINAL SOFT TISSUES: Unremarkable. OTHER FINDINGS: T12 vertebral body: No significant compression deformity. Vacuum disc phenomenon T11-T12. Schmorl node formation T12 vertebral body. Atherosclerotic calcification and mural plaque present. Findings are seen throughout the aorta which is non aneurysmal. IMPRESSION: 1. No evidence of compression deformity T12 vertebral body. 2. Grade 1 anterolisthesis, bulging annulus resulting in canal stenosis at L4-5. 3. Mild canal stenosis at L3-4. Additional benign and/or incidental findings described above.
--- NOTE | 2018-12-19 11:59 | CP.PCM.PN ---
<Angel Gavin - Last Filed: 12/19/18 12:05> Subjective - Date & Time of Evaluation Date of Evaluation: 12/19/18 Time of Evaluation: 07:00 - Subjective Subjective: Patient seen and examined at bedside. No acute event overnight. Patient have no complain per today. Patient denies any chest pain, sob, abd pain diarrhea, constipation or dysuria. PT evaluated patient and recommend patient to be discharged on Subacute rehab. Objective - Vital Signs/Intake and Output Vital Signs (last 24 hours): Temp Pulse Resp BP Pulse Ox 98.4 F 91 H 18 163/76 H 90 L 12/19/18 07:47 12/19/18 09:00 12/19/18 07:47 12/19/18 08:46 12/19/18 07:47 - Medications Medications: Current Medications Cyanocobalamin (Vitamin B12 1000 Mcg/Ml Inj) 1,000 mcg IM DAILY [facility] Last Admin: 12/19/18 08:45 Dose: 1,000 mcg Enoxaparin Sodium (Lovenox) 40 mg SC DAILY [facility]; Protocol Last Admin: 12/19/18 08:45 Dose: 40 mg Metoprolol Tartrate (Lopressor) 12.5 mg PO Q12 [facility] Last Admin: 12/19/18 08:46 Dose: 12.5 mg - Labs Labs: 12/19/18 04:55 12/19/18 04:55 PT 11.9 Seconds (9.8-13.1) 12/17/18 21:58 INR 1.0 12/17/18 21:58 APTT 28.4 Seconds (25.6-37.1) 12/17/18 21:58 - Constitutional Appears: Well, Non-toxic, No Acute Distress - Head Exam Head Exam: ATRAUMATIC, NORMAL INSPECTION, NORMOCEPHALIC - Eye Exam Eye Exam: EOMI, Normal appearance, PERRL Pupil Exam: NORMAL ACCOMODATION, PERRL - ENT Exam ENT Exam: Mucous Membranes Moist, Normal Exam - Neck Exam Neck Exam: Full ROM, Normal Inspection - Respiratory Exam Respiratory Exam: Clear to Ausculation Bilateral, NORMAL BREATHING PATTERN - Cardiovascular Exam Cardiovascular Exam: REGULAR RHYTHM, +S1, +S2 - GI/Abdominal Exam GI & Abdominal Exam: Soft, Normal Bowel Sounds - Extremities Exam Additional comments: Patient lower extremity are weak but patient is able to move. Upper extremity WNL Assessment and Plan - Assessment and Plan (Free Text) Assessment: 83 y/o F with a PMHx of dementia was admitted for evaluation and management of altered mental status and s/p fall. Patient mental status improved, Patient is alert and oriented to time and place. Physical therapy evaluated patient and Recommend Sub acute rehab Head CT unremarkable. CT spine: T12 vertebral body: no sig compression deformity. Vacuum disc phenomenon T12-T12. Schomorl node formation T12 vertebral body No evidence of compression of T12, Grade 1 anterolisthesis, bulging anbulus resulting in canal stenosis at L4-L5, Mild canal stenosis at L3-4 Cardiology consult recommendation Impression:: Elevated troponin most likely due to rhabdomyolysis secondary to muscle injury secondary to the fall as well as a prolonged period of lying on the floor. Left bundle branch block. 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 The patient will have an echocardiogram to evaluate her left ventricular systolic function. No evidence of acute coronary syndrome was detected here. PLAN: S/P fall Patient lower extremities are weak b/l Will discharge to subacute rehab after medically cleared Physical therapy/Occupational therapy eval on case Pt may need more supervision or activities modification. follow up with sub acute rehab plan Altered Mental Status Resolved Afebrile, HR 96, 162/81, RR 18, Ox 96. Troponin elevated 0.2460 x2 possible rhabdo Pro-BNP 2180-high Need to f/u CPK levels. Will re-evaluate and consider call family for Hx details. Abnormal EKG/elevated troponin As per Cardiology no evidence of acute coronary syndrome LBBB S/P mastectomy for carcinoma of breast Patient should have Echo to evaluate for systolic function Sinus tachycardia and LBBB on EKG Troponin elevated 0.2460. Possibly Pro-BNP 2180-high CXR showed cardiomegaly. Continue follow up with Dr Chen ( coffee machine technician ) Hypokalemia Resolved Serum K+ 3.7 DTI --Sacral ulcer, unstageable --Wound care nurse consult. >DVT Prophylaxis SCD's Lovenox <Felipa Kay - Last Filed: 12/19/18 16:03> Objective - Vital Signs/Intake and Output Vital Signs (last 24 hours): Temp Pulse Resp BP Pulse Ox 98.7 F 104 H 18 141/76 94 L 12/19/18 15:51 12/19/18 15:51 12/19/18 15:51 12/19/18 15:51 12/19/18 15:51 - Medications Medications: Current Medications Cyanocobalamin (Vitamin B12 1000 Mcg/Ml Inj) 1,000 mcg IM DAILY [facility] Last Admin: 12/19/18 08:45 Dose: 1,000 mcg Enoxaparin Sodium (Lovenox) 40 mg SC DAILY [facility]; Protocol Last Admin: 12/19/18 08:45 Dose: 40 mg Metoprolol Tartrate (Lopressor) 12.5 mg PO Q12 [facility] Last Admin: 12/19/18 08:46 Dose: 12.5 mg - Labs Labs: 12/19/18 04:55 12/19/18 04:55 PT 11.9 Seconds (9.8-13.1) 12/17/18 21:58 INR 1.0 12/17/18 21:58 APTT 28.4 Seconds (25.6-37.1) 12/17/18 21:58 Attending/Attestation - Attestation I have personally seen and examined this patient.: Yes I have fully participated in the care of the patient.: Yes I have reviewed all pertinent clinical information, including history, physical exam and plan: Yes Notes (Text): Neurocognitive Disorder Fall Lower Extremity Weakness Corpus Callosum Mass LBBB Troponin Elevation prob sec to Rhabdo Rhabdomyolysis B12 Deficiency HTN -IVF hydration -accdg to daughter Suzie who is Surrogate Decision maker , noted some declining cognitive fxn - unclear if pt fell vs she crawled due to weakness -PT consult -Neurosurgery consult - Cardio consulted - Dr Chen felt sl TRop elevation if due to Rhabdo - IM B12 shots
--- NOTE | 2018-12-19 12:15 | PQF ---
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
--- NOTE | 2018-12-19 13:31 | MRI ---
Date of service: 12/19/2018 PROCEDURE: MRI BRAIN WITHOUT CONTRAST HISTORY: fall, LE weakness COMPARISON: None TECHNIQUE: Multiplanar, multisequence MR images of the brain were obtained without intravenous contrast enhancement. 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 The lesion is hyperintense on FLAIR imaging and shows a moderate amount of restricted diffusion. The most common neoplastic lesion involving the corpus callosum would be a primary lymphoma of the brain. An astrocytoma is also possible. Postcontrast imaging would be helpful for further evaluation. Chronic microvascular changes are seen in the periventricular white matter. There is a moderate amount of atrophy. VENTRICLES: Unremarkable. No hydrocephalus. CRANIUM: Unremarkable. ORBITS: Grossly unremarkable. PARANASAL SINUSES/MASTOIDS: Clear VASCULAR SYSTEM: Skull base flow voids intact. OTHER FINDINGS: None. 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 The lesion is hyperintense on FLAIR imaging and shows a moderate amount of restricted diffusion. The most common neoplastic lesion involving the corpus callosum would be a primary lymphoma of the brain. An astrocytoma is also possible. Postcontrast imaging would be helpful for further evaluation.
[2018-12-20 06:01] LABS: HEMOGLOBIN 12.6 g/dL (12.0-16.0); MEAN CELL VOLUME 87.8 fl (81.0-99.0); MEAN CORPUSCULAR HGB CONC 33.1 g/dL (33.0-37.0); RBC 4.33 Mil/uL (3.80-5.20); RED CELL DISTRIBUTION WIDTH 14.4 % (11.5-14.5); WHITE BLOOD COUNT 8.1 K/uL (4.8-10.8)
[2018-12-20 06:39] LABS: BLOOD UREA NITROGEN 19 mg/dl (7-17); CALCIUM 9.6 mg/dL (8.4-10.2); GFR NON-AFRICAN AMERICAN > 60
[2018-12-20] MEDS: Enoxaparin 40 mg Syringe SC SCH (09:13)
--- NOTE | 2018-12-20 10:07 | CP.PCM.PN ---
<Angel Gavin - Last Filed: 12/20/18 10:41> Subjective - Date & Time of Evaluation Date of Evaluation: 12/20/18 Time of Evaluation: 07:00 - Subjective Subjective: Patient seen and examined at bedside today, no acute event overnight. Patient is oriented to self but no to place. Otherwise patient is doing well, she denies fe karena, chills, chest pain, sob, abdominal pain, diarrhea, constipation, dysuria or polyuria. MRI positive for mass involving the posterior aspect of the corpus callosum measuring 32 mm APx 10 mm height and 28 mm wide. the lesion is hyperintense on FLAIR imaging and shows a moderate amount of restricted diffusion. The most common neoplastic lesion involving the corpus callosum would be a primary ly mphoma of the brain. An astrocytoma is possible. Post contrast imaging would be helpful for further evaluation Objective - Vital Signs/Intake and Output Vital Signs (last 24 hours): Temp Pulse Resp BP Pulse Ox 98.9 F 96 H 18 167/83 H 96 12/20/18 09:00 12/20/18 09:12 12/20/18 09:00 12/20/18 09:12 12/20/18 09:00 - Medications Medications: Current Medications Cyanocobalamin (Vitamin B12 1000 Mcg/Ml Inj) 1,000 mcg IM DAILY [facility] Last Admin: 12/20/18 09:14 Dose: 1,000 mcg Enoxaparin Sodium (Lovenox) 40 mg SC DAILY [facility]; Protocol Last Admin: 12/20/18 09:13 Dose: 40 mg Metoprolol Tartrate (Lopressor) 12.5 mg PO Q12 [facility] Last Admin: 12/20/18 09:12 Dose: 12.5 mg - Labs Labs: 12/20/18 04:55 12/20/18 04:55 PT 11.9 Seconds (9.8-13.1) 12/17/18 21:58 INR 1.0 12/17/18 21:58 APTT 28.4 Seconds (25.6-37.1) 12/17/18 21:58 - Constitutional Appears: Well, Non-toxic, No Acute Distress - Head Exam Head Exam: ATRAUMATIC, NORMAL INSPECTION, NORMOCEPHALIC - Eye Exam Eye Exam: EOMI, Normal appearance, PERRL Pupil Exam: NORMAL ACCOMODATION, PERRL - ENT Exam ENT Exam: Mucous Membranes Moist, Normal Exam - Neck Exam Neck Exam: Full ROM, Normal Inspection - Respiratory Exam Respiratory Exam: Clear to Ausculation Bilateral, NORMAL BREATHING PATTERN - Cardiovascular Exam Cardiovascular Exam: REGULAR RHYTHM, +S1, +S2 - GI/Abdominal Exam GI & Abdominal Exam: Soft, Normal Bowel Sounds - Extremities Exam Extremities Exam: Full ROM, Normal Capillary Refill, Normal Inspection Additional comments: Weakness noted in b/l lower extremities - Back Exam Back Exam: NORMAL INSPECTION - Neurological Exam Neurological Exam: Alert, Awake Additional comments: Oriented to self not to place - Psychiatric Exam Psychiatric exam: Normal Affect, Normal Mood - Skin Skin Exam: Dry, Intact, Normal Color, Warm Assessment and Plan - Assessment and Plan (Free Text) Assessment: Assessment: 83 y/o F with a PMHx of dementia was admitted for evaluation and management of altered mental status and s/p fall. Physical therapy evaluated patient and Recommend Sub acute rehab Head CT unremarkable. CT spine: T12 vertebral body: no sig compression deformity. Vacuum disc phenomenon T12-T12. Schomorl node formation T12 vertebral body No evidence of compression of T12, Grade 1 anterolisthesis, bulging anbulus resulting in canal stenosis at L4-L5, Mild canal stenosis at L3-4 Cardiology consult recommendation Impression:: Elevated troponin most likely due to rhabdomyolysis secondary to muscle injury secondary to the fall as well as a prolonged period of lying on the floor. Left bundle branch block. 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 The patient will have an echocardiogram to evaluate her left ventricular systolic function. No evidence of acute coronary syndrome was detected here. MRI positive for mass involving the posterior aspect of the corpus callosum measuring 32 mm APx 10 mm height and 28 mm wide. the lesion is hyperintense on FLAIR imaging and shows a moderate amount of restricted diffusion. The most common neoplastic lesion involving the corpus callosum would be a primary lymphoma of the brain. An astrocytoma is possible. Post contrast imaging would be helpful for further evaluation PLAN: S/P fall Patient lower extremities are weak b/l MRI Positive for mass lymphoma vs astrosytoma Neurosurgery consulted, f/u recommendation Will discharge to subacute rehab after medically cleared Physical therapy/Occupational therapy eval on case Pt may need more supervision or activities modification. Low vitamin B12 Vitamin B12 given Inj follow up with sub acute rehab plan Altered Mental Status patient is oriented to self but not to place Urine analysis + nitrate, positive bacteria Afebrile, HR 96, 162/81, RR 18, Ox 96. Troponin elevated 0.2460 x2 possible rhabdo Pro-BNP 2180-high CPK trending down 696-> 378 F/U urine culture Abnormal EKG/elevated troponin As per Cardiology no evidence of acute coronary syndrome LBBB S/P mastectomy for carcinoma of breast Patient should have Echo to evaluate for systolic function Sinus tachycardia and LBBB on EKG Troponin elevated 0.2460. Possibly Pro-BNP 2180-high CXR showed cardiomegaly. Continue follow up with Dr Chen ( medical support assistant ) HTN Blood pressure uncontrolled on Lopressor Hypokalemia Serum K+ 3.5 KCL 20meq once DTI --Sacral ulcer, unstageable --Wound care nurse consult. >DVT Prophylaxis SCD's Lovenox <Felipa Kay - Last Filed: 12/20/18 15:06> Objective - Vital Signs/Intake and Output Vital Signs (last 24 hours): Temp Pulse Resp BP Pulse Ox 99.2 F 95 H 18 106/68 94 L 12/20/18 11:42 12/20/18 11:42 12/20/18 11:42 12/20/18 11:42 12/20/18 11:42 - Medications Medications: Current Medications Cyanocobalamin (Vitamin B12 1000 Mcg/Ml Inj) 1,000 mcg IM DAILY [facility] Last Admin: 12/20/18 09:14 Dose: 1,000 mcg Enoxaparin Sodium (Lovenox) 40 mg SC DAILY [facility]; Protocol Last Admin: 12/20/18 09:13 Dose: 40 mg Metoprolol Tartrate (Lopressor) 12.5 mg PO Q12 [facility] Last Admin: 12/20/18 09:12 Dose: 12.5 mg - Labs Labs: 12/20/18 04:55 12/20/18 04:55 PT 11.9 Seconds (9.8-13.1) 12/17/18 21:58 INR 1.0 12/17/18 21:58 APTT 28.4 Seconds (25.6-37.1) 12/17/18 21:58 Attending/Attestation - Attestation I have personally seen and examined this patient.: Yes I have fully participated in the care of the patient.: Yes I have reviewed all pertinent clinical information, including history, physical exam and plan: Yes Notes (Text): Neurocognitive Disorder Fall Lower Extremity Weakness Corpus Callosum Mass LBBB Troponin Elevation prob sec to Rhabdo Rhabdomyolysis B12 Deficiency HTN OA/DDD -IVF hydration -accdg to daughter Suzie who is Surrogate Decision maker , noted some declining cognitive fxn the past few mos, unclear if pt fell vs she crawled due to weakness -PT consult rec VICKIE - family agrees -Neurosurgery consult re: brain mass - Cardio consulted - Dr Cehn felt sl TRop elevation is due to Rhabdo - IM B12 shots
[2018-12-20] MEDS ORDERED: Potassium Chloride 20 mEq ER Tab PO ONE (10:56)
--- NOTE | 2018-12-20 18:02 | CP.PCM.CON ---
History of Present Illness - History of Present Illness History of Present Illness: full consult dictated likely poor prognosis in 83 yo pt w dementia unless family feels strongly re pursuing aggressive care would agree w trans to [facility] over hosp transfer for stereotactic biopsy Past Patient History - Past Medical History & Family History Past Medical History?: Yes - Past Social History Smoking Status: Never Smoked - CARDIAC Hx Cardiac Disorders: No - PULMONARY Hx Respiratory Disorders: No - NEUROLOGICAL Hx Neurological Disorder: Yes Hx Dementia: Yes - HEENT Hx HEENT Problems: No - RENAL Hx Chronic Kidney Disease: No - ENDOCRINE/METABOLIC Hx Endocrine Disorders: No - HEMATOLOGICAL/ONCOLOGICAL Hx Blood Disorders: No Hx AIDS: No Hx Human Immunodeficiency Virus (HIV): No - INTEGUMENTARY Hx Dermatological Problems: No - MUSCULOSKELETAL/RHEUMATOLOGICAL Hx Musculoskeletal Disorders: Yes Hx Falls: Yes - GASTROINTESTINAL Hx Gastrointestinal Disorders: No - GENITOURINARY/GYNECOLOGICAL Hx Genitourinary Disorders: No Other/Comment: BREAST CA W/ CHEMO - PSYCHIATRIC Hx Psychophysiologic Disorder: No Hx Substance Use: No - SURGICAL HISTORY Hx Surgeries: Yes Other/Comment: 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 - ANESTHESIA Hx Anesthesia: Yes Hx Anesthesia Reactions: No Hx Malignant Hyperthermia: No Meds Allergies/Adverse Reactions: Allergies Allergy/AdvReac Type Severity Reaction Status Date / Time No Known Allergies Allergy Verified 12/17/18 18:41 - Medications Medications: Current Medications Cyanocobalamin (Vitamin B12 1000 Mcg/Ml Inj) 1,000 mcg IM DAILY [facility] Last Admin: 12/20/18 09:14 Dose: 1,000 mcg Enoxaparin Sodium (Lovenox) 40 mg SC DAILY [facility]; Protocol Last Admin: 12/20/18 09:13 Dose: 40 mg Metoprolol Tartrate (Lopressor) 12.5 mg PO Q12 [facility] Last Admin: 12/20/18 09:12 Dose: 12.5 mg Results - Vital Signs Recent Vital Signs: Last Vital Signs Temp 99.3 F 12/20/18 17:00 Pulse 103 H 12/20/18 17:00 Resp 18 12/20/18 17:00 BP 122/72 12/20/18 17:00 Pulse Ox 95 12/20/18 17:00 - Labs Result Diagrams: 12/20/18 04:55 12/20/18 04:55 Labs: Laboratory Results - last 24 hr 12/20/18 12/20/18 04:55 04:55 WBC 8.1 RBC 4.33 Hgb 12.6 Hct 38.0 MCV 87.8 MCH 29.0 MCHC 33.1 RDW 14.4 Plt Count 187 Sodium 141 Potassium 3.5 L Chloride 105 Carbon Dioxide 27 Anion Gap 13 BUN 19 H Creatinine 0.5 L Est GFR ( Amer) > 60 Est GFR (Non-Af Amer) > 60 Random Glucose 90 Calcium 9.6 Total Creatine Kinase 378 H
[2018-12-21 05:39] LABS: HEMOGLOBIN 12.6 g/dL (12.0-16.0); MEAN CELL VOLUME 88.6 fl (81.0-99.0); MEAN CORPUSCULAR HEMOGLOBIN 29.2 pg (27.0-31.0); MEAN CORPUSCULAR HGB CONC 32.9 g/dL (33.0-37.0); RBC 4.31 Mil/uL (3.80-5.20); RED CELL DISTRIBUTION WIDTH 14.4 % (11.5-14.5); WHITE BLOOD COUNT 6.9 K/uL (4.8-10.8)
[2018-12-21 05:49] LABS: BLOOD UREA NITROGEN 24 mg/dl (7-17); CALCIUM 9.6 mg/dL (8.4-10.2); GFR NON-AFRICAN AMERICAN > 60
[2018-12-21] MEDS: Enoxaparin 40 mg Syringe SC SCH (09:19)
[2018-12-21] MEDS ORDERED: Chlorhexidine Gluconate 1 APPL/PKT TP ONE (10:30)
[2018-12-21] MEDS ORDERED: Metoprolol 1 mg/ml Inj IVP ONE (11:25)
--- NOTE | 2018-12-21 12:23 | CP.PCM.DIS ---
Provider - Provider Date of Admission: 12/18/18 18:31 Attending physician: Zac Ron Consults: 12/17/18 23:29 Cardiology Consult Stat Comment: Consulting Provider: Kiel Chen V Consulting Physician: Kiel Chen V Reason for Consult: elevated troponin and LBBB 12/18/18 01:19 Wound Care [Nursing Referral for Wound Care] Routine Comment: Physician Instructions: Reason For Exam: sacral ulcer 12/19/18 14:42 Neuro Surgery Consult Routine Comment: Consulting Provider: Yuniel Gayle Consulting Physician: Yuniel Gayle Reason for Consult: corpus callosum mass Time Spent in preparation of Discharge (in minutes): 20 Diagnosis - Discharge Diagnosis (1) Altered mental state Status: Acute (2) Mass of brain Status: Acute (3) Dehydration Status: Resolved Hospital Course - Lab Results Lab Results: Micro Results 12/17/18 21:58 Blood-Venous Blood Culture - Preliminary NO GROWTH AFTER 3 DAYS Most Recent Lab Values WBC 6.9 K/uL (4.8-10.8) 12/21/18 04:35 RBC 4.31 Mil/uL (3.80-5.20) 12/21/18 04:35 Hgb 12.6 g/dL (12.0-16.0) 12/21/18 04:35 Hct 38.2 % (34.0-47.0) 12/21/18 04:35 MCV 88.6 fl (81.0-99.0) 12/21/18 04:35 MCH 29.2 pg (27.0-31.0) 12/21/18 04:35 MCHC 32.9 g/dL (33.0-37.0) L 12/21/18 04:35 RDW 14.4 % (11.5-14.5) 12/21/18 04:35 Plt Count 198 K/uL (130-400) 12/21/18 04:35 MPV 7.9 fl (7.2-11.7) 12/18/18 04:31 Neut % (Auto) 81.6 % (50.0-75.0) H 12/18/18 04:31 Lymph % (Auto) 9.5 % (20.0-40.0) L 12/18/18 04:31 Marshall % (Auto) 8.6 % (0.0-10.0) 12/18/18 04:31 Eos % (Auto) 0.1 % (0.0-4.0) 12/18/18 04:31 Baso % (Auto) 0.2 % (0.0-2.0) 12/18/18 04:31 Neut # (Auto) 7.8 K/uL (1.8-7.0) H 12/18/18 04:31 Lymph # (Auto) 0.9 K/uL (1.0-4.3) L 12/18/18 04:31 Marshall # (Auto) 0.8 K/uL (0.0-0.8) 12/18/18 04:31 Eos # (Auto) 0.0 K/uL (0.0-0.7) 12/18/18 04:31 Baso # (Auto) 0.0 K/uL (0.0-0.2) 12/18/18 04:31 Neutrophils % (Manual) 75 % (42-75) 12/17/18 21:58 Band Neutrophils % 4 % (0-2) H 12/17/18 21:58 Lymphocytes % (Manual) 10 % (20-50) L 12/17/18 21:58 Monocytes % (Manual) 11 % (0-10) H 12/17/18 21:58 Platelet Estimate Normal (NORMAL) 12/17/18 21:58 RBC Morphology Normal (NORMAL) 12/17/18 21:58 PT 11.9 Seconds (9.8-13.1) 12/17/18 21:58 INR 1.0 12/17/18 21:58 APTT 28.4 Seconds (25.6-37.1) 12/17/18 21:58 pO2 41 mm/Hg (30-55) 12/17/18 22:12 VBG pH 7.44 (7.32-7.43) H 12/17/18 22:12 VBG pCO2 46 mmHg (40-60) 12/17/18 22:12 VBG HCO3 29.2 mmol/L 12/17/18 22:12 VBG Total CO2 32.6 mmol/L (22-28) H 12/17/18 22:12 VBG O2 Sat (Calc) 82.3 % (40-65) H 12/17/18 22:12 VBG Base Excess 6.1 mmol/L (0.0-2.0) H 12/17/18 22:12 VBG Potassium 3.8 mmol/L (3.6-5.2) 12/17/18 22:12 Sodium 141.0 mmol/L (132-148) 12/17/18 22:12 Chloride 106.0 mmol/L (98-107) 12/17/18 22:12 Glucose 111 mg/dL (65-105) H 12/17/18 22:12 Lactate 1.2 mmol/L (0.7-2.1) 12/17/18 22:12 FiO2 21.0 % 12/17/18 22:12 Sodium 141 mmol/l (132-148) 12/21/18 04:35 Potassium 3.7 MMOL/L (3.6-5.0) 12/21/18 04:35 Chloride 104 mmol/L (98-107) 12/21/18 04:35 Carbon Dioxide 30 mmol/L (22-30) 12/21/18 04:35 Anion Gap 11 (10-20) 12/21/18 04:35 BUN 24 mg/dl (7-17) H 12/21/18 04:35 Creatinine 0.6 mg/dl (0.7-1.2) L 12/21/18 04:35 Est GFR ( Amer) > 60 12/21/18 04:35 Est GFR (Non-Af Amer) > 60 12/21/18 04:35 Random Glucose 91 mg/dL (65-105) 12/21/18 04:35 Calcium 9.6 mg/dL (8.4-10.2) 12/21/18 04:35 Phosphorus 4.3 mg/dl (2.5-4.5) 12/18/18 04:29 Magnesium 2.0 MG/DL (1.6-2.3) 12/18/18 04:31 Total Bilirubin 0.8 mg/dl (0.2-1.3) 12/17/18 21:58 AST 64 U/L (14-36) H 12/17/18 21:58 ALT 27 U/L (9-52) 12/17/18 21:58 Alkaline Phosphatase 95 U/L (38-126) 12/17/18 21:58 Total Creatine Kinase 378 U/L (30-135) H 12/20/18 04:55 Troponin I 0.1760 ng/mL (0.00-0.120) H* 12/18/18 04:31 NT-Pro-B Natriuret Pep 2180 pg/ml (0-900) H 12/17/18 21:58 Total Protein 6.8 G/DL (6.3-8.2) 12/17/18 21:58 Albumin 3.7 g/dL (3.5-5.0) 12/17/18 21:58 Globulin 3.1 gm/dL (2.2-3.9) 12/17/18 21:58 Albumin/Globulin Ratio 1.2 (1.0-2.1) 12/17/18 21:58 Vitamin B12 235 pg/mL (239-931) L 12/18/18 04:31 TSH 3rd Generation 0.53 mIU/ML (0.46-4.68) 12/18/18 04:31 Venous Blood Potassium 3.8 mmol/L (3.6-5.2) 12/17/18 22:12 Urine Color Yellow (YELLOW) 12/18/18 07:05 Urine Clarity Slighty-cloudy (Clear) 12/18/18 07:05 Urine pH 5.0 (5.0-8.0) 12/18/18 07:05 Ur Specific Energy 1.021 (1.003-1.030) 12/18/18 07:05 Urine Protein 100 mg/dL (NEGATIVE) 12/18/18 07:05 Urine Glucose (UA) Neg mg/dL (NEGATIVE) 12/18/18 07:05 Urine Ketones 20 mg/dL (NEGATIVE) 12/18/18 07:05 Urine Blood Large (NEGATIVE) 12/18/18 07:05 Urine Nitrate Positive (NEGATIVE) H 12/18/18 07:05 Urine Bilirubin Negative (NEGATIVE) 12/18/18 07:05 Urine Urobilinogen 0.2-1.0 mg/dL (0.2-1.0) 12/18/18 07:05 Ur Leukocyte Esterase Neg Roger/uL (Negative) 12/18/18 07:05 Urine RBC (Auto) 3 /hpf (0-3) 12/18/18 07:05 Urine Microscopic WBC < 1 /hpf (0-5) 12/18/18 07:05 Ur Squamous Epith Cells < 1 /hpf (0-5) 12/18/18 07:05 Urine Bacteria Many (<OCC) H 12/18/18 07:05 Urine Opiates Screen Negative (NEGATIVE) 12/18/18 07:07 Urine Methadone Screen Negative (NEGATIVE) 12/18/18 07:07 Ur Barbiturates Screen Negative (NEGATIVE) 12/18/18 07:07 Ur Phencyclidine Scrn Negative (NEGATIVE) 12/18/18 07:07 Ur Amphetamines Screen Negative (NEGATIVE) 12/18/18 07:07 U Benzodiazepines Scrn Negative (NEGATIVE) 12/18/18 07:07 U Oth Cocaine Metabols Negative (NEGATIVE) 12/18/18 07:07 U Cannabinoids Screen Negative (NEGATIVE) 12/18/18 07:07 Alcohol, Quantitative < 10 mg/dl (0-10) 12/18/18 05:00 RPR Nonreactive (NONREACTIVE) 12/18/18 06:31 HIV-1 Ab Rapid Screen Non reactive (NON REAC) 12/18/18 06:31 Blood Type O POSITIVE 12/17/18 21:58 Blood Type Confirm O POSITIVE 12/18/18 04:31 Antibody Screen Negative 12/17/18 21:58 BBK History Checked No verified bt 12/17/18 21:58 - Hospital Course Hospital Course: 83 y/o F with a PMHx of dementia was brought to ED due to AMS and s/p fall. Patient was admitted to Telemetry for further management and treatment. ED Course --Vital signs with mild tachycardia. --CBC showed leukocytosis, CMP showed hypokalemia. --Troponin elevated 0.2460. --Pro-BNP 2180-high --Head CT: No acute intracranial abnormality. Age-appropriate moderate diffuse cerebral/cerebellar atrophy. Mild chronic microvascular disease. Atherosclerotic vascular plaquing within the carotid siphons bilaterally. --CXR showed cardiomegaly. --EKG: sinus tachycardia and LBBB. --IV fluid administered. --Urinary straight cath at ED. 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 Neurosurgery was consulted, and does not recommend any intervention unless family feels strongly on pursuing aggressive care. Physcial therapy was following patient due to weakness of B/L extremities any recommend patient to be discharged to Subacute rehab. Patient also had abnormal EKG and elevated troponin, Fish Hatchery Supervisor (Dr. Chen) was on case, and report Trop increase due to fall. Patient also had hypokalemia which was treated with KCL Patient seen and examined today. No acute distress overnight. Patient is less confuse and more alert to time and place. Patient chart were reviewed and she is stable to be discharged to subacute rehab at [facility]. Case discussed with Dr Valle. Need to follow up with a primary care doctor Diagnostic test done during stay Head CT unremarkable. CT spine: T12 vertebral body: no sig compression deformity. Vacuum disc phenomenon T12-T12. Schomorl node formation T12 vertebral body No evidence of compression of T12, Grade 1 anterolisthesis, bulging anbulus resulting in canal stenosis at L4-L5, Mild canal stenosis at L3-4 Cardiology consult recommendation Impression:: Elevated troponin most likely due to rhabdomyolysis secondary to muscle injury secondary to the fall as well as a prolonged period of lying on the floor. Left bundle branch block. 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 The patient will have an echocardiogram to evaluate her left ventricular systolic function. No evidence of acute coronary syndrome was detected here. ECHO: Echo window was poor and so the image were very poor in quality. The left ventricle is normal size. There is normal left ventricular wall thickness. Septum had abnormal motion due to LBBB other segments contracted normally. left ventricle systolic function is normal. LVEF is 55-60%. Transmitral doppler flow pattern is grade I-Abnormal relaxation pattern. MRI positive for mass involving the posterior aspect of the corpus callosum measuring 32 mm APx 10 mm height and 28 mm wide. the lesion is hyperintense on FLAIR imaging and shows a moderate amount of restricted diffusion. The most common neoplastic lesion involving the corpus callosum would be a primary lymphoma of the brain. An astrocytoma is possible. Post contrast imaging would be helpful for further evaluation Discharge Exam - Head Exam Head Exam: ATRAUMATIC, NORMAL INSPECTION, NORMOCEPHALIC - Eye Exam Eye Exam: EOMI, Normal appearance, PERRL Pupil Exam: NORMAL ACCOMODATION, PERRL - Respiratory Exam Respiratory Exam: Clear to PA & Lateral, NORMAL BREATHING PATTERN, UNREMARKABLE - Cardiovascular Exam Cardiovascular Exam: REGULAR RHYTHM, +S1, +S2 - GI/Abdominal Exam GI & Abdominal Exam: Normal Bowel Sounds, Unremarkable - Extremities Exam Additional comments: Weakness noted on B/l lower extremities - Back Exam Back exam: NORMAL INSPECTION - Neurological Exam Neurological exam: Alert, CN II-XII Intact, Normal Gait, Oriented x3, Reflexes Normal - Psychiatric Exam Psychiatric exam: Normal Affect, Normal Mood - Skin Skin Exam: Dry, Intact, Normal Color, Warm Discharge Plan - Follow Up Plan Condition: GUARDED Disposition: REHAB FACILITY/REHAB UNIT Additional Instructions: Filiberto Rosenthal
[2018-12-21 15:47] VITALS: BP 136/71; PULSE 113; RESP 17; TEMP 99.9; O2SAT 96
--- NOTE | 2018-12-22 10:02 | CON ---
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 On speaking with her today, she is clearly quite demented. She is only oriented to her name, not the hospital, the date, the year, etc. Clearly her response to questions are markedly off, although she does follow most commands. PAST MEDICAL HISTORY: Reviewed in the EMR. MEDICATIONS: Reviewed in the EMR. ALLERGIES: REVIEWED IN THE EMR. SOCIAL HISTORY: Reviewed in the EMR. PHYSICAL EXAMINATION: HEENT: Pupils are equally reactive. EOMs are full. Face is symmetric. EXTREMITIES: She has good strength in both upper extremities, has some weakness involving the right leg. The left leg seems painful for unclear reasons. NEUROLOGIC: Sensory exam is grossly intact. The gait was certainly not tested. LABORATORY DATA: MRI of the brain does show a lesion involving the posterior corpus callosum. Unequivocally, the most likely scenarios are either primary HELICOPTER DISPATCHER lymphoma or a glioma. Both of these would carry a very poor prognosis in an 83-year-old lady specifically with underlying dementia. ASSESSMENT AND PLAN: Certainly a stereotactic biopsy could be performed, which obviously would not be performed at [facility], however the question should certainly be raised whether this would be the proper thing to do. The chances of finding something that treatment would make a significant impact on the patient's quality and quantity of life is highly suspicious. Again either primary central nervous system lymphoma or glioma is found to carry an extremely poor prognosis particularly in someone her age and as indicated in the chart, [facility] a [facility] appropriate course of action. Certainly this could be out with the family again if they would want to proceed with more aggressive treatment/biopsy etc., she would have to be transferred elsewhere. Pako Nicholson MD
== END 2018-12-21 17:25 | DRG 566 ==
LOC: H.ER 18:34 → H.ERHOLD 23:20 → H.TEL 12-18 06:38 → OBSVTOIN 12-18 18:31
PROVIDERS: ADMIT Internal Medicine; ATTEND Internal Medicine
DX: T79.6XXA Traumatic ischemia of muscle, initial encounter (principal); E87.6 Hypokalemia; E86.0 Dehydration; F03.90 Unspecified dementia, unspecified severity, without behavioral disturbance, psychotic disturbance, mood disturbance, and anxiety; L89.152 Pressure ulcer of sacral region, stage 2; E53.8 Deficiency of other specified B group vitamins; G93.89 Other specified disorders of brain; E11.9 Type 2 diabetes mellitus without complications; I10 Essential (primary) hypertension; R26.89 Other abnormalities of gait and mobility; R74.8 Abnormal levels of other serum enzymes; I44.7 Left bundle-branch block, unspecified; W19.XXXA Unspecified fall, initial encounter; Z85.3 Personal history of malignant neoplasm of breast; Z90.10 Acquired absence of unspecified breast and nipple; Y92.009 Unspecified place in unspecified non-institutional (private) residence as the place of occurrence of the external cause

== ENCOUNTER 2019-02-06 02:54 | Inpatient (IN) | payer MEDICARE ==
[2019-02-06 03:04] VITALS: BMI 31.8
--- NOTE | 2019-02-06 03:58 | ED PDOC ---
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 History limited due to patient's clinical condition. Past Medical History Reviewed: Historical Data, Nursing Documentation, Vital Signs Vital Signs: Last Vital Signs Temp 99.4 F 02/06/19 03:05 Pulse 131 H 02/06/19 03:05 Resp 18 02/06/19 03:05 BP 139/83 02/06/19 03:05 Pulse Ox 97 02/06/19 03:05 - Medical History PMH: Dementia, HTN Denies: HIV, Chronic Kidney Disease Other PMH: gait instability, left bundle branch block - Family History Family History: States: Unknown Family Hx - Home Medications Home Medications: Ambulatory Orders Medication Instructions Recorded Metoprolol Tartrate 25 mg PO Q12 30 Days #60 tablet 12/21/18 Cyanocobalamin [Vitamin B12 1000 1,000 mcg PO DAILY 02/06/19 mcg Tab] Letrozole [Femara] 2.5 mg PO DAILY 02/06/19 - Allergies Allergies/Adverse Reactions: Allergies Allergy/AdvReac Type Severity Reaction Status Date / Time No Known Allergies Allergy Verified 12/17/18 18:41 Review of Systems ROS Statement: Except As Marked, All Systems Reviewed And Found Negative Constitutional: Positive for: Weakness Gastrointestinal: Positive for: Abdominal Pain, Diarrhea Physical Exam - Reviewed Nursing Documentation Reviewed: Yes Vital Signs Reviewed: Yes (afebrile) - Physical Exam Appears: Positive for: Non-toxic Head Exam: Positive for: ATRAUMATIC, NORMAL INSPECTION, NORMOCEPHALIC Skin: Positive for: Normal Color Eye Exam: Positive for: Normal appearance ENT: Positive for: Normal ENT Inspection Neck: Positive for: Supple Cardiovascular/Chest: Positive for: Tachycardia. Negative for: Murmur Respiratory: Positive for: Normal Breath Sounds. Negative for: Respiratory Distress Gastrointestinal/Abdominal: Positive for: Bowel Sounds, Soft. Negative for: Tenderness, Guarding, Rebound Back: Positive for: Other (sacral decubitus ulcer, no discharge (stage 1)) Extremity: Positive for: Normal ROM Neurological/Psych: Positive for: Awake, Alert, wrapper caser II-XII. Negative for: Oriented, Facial Droop - Laboratory Results Result Diagrams: 02/07/19 04:30 02/07/19 04:30 - ECG O2 Sat by Pulse Oximetry: 97 (RA) Pulse Ox Interpretation: Normal - Critical Care Total Time (In Min): 60 Documented Critical Care: Time excludes all time spent performint seperately billable procedures Medical Decision Making Medical Decision Makin unable to take history from patient, it is limited given pt history of dementia Spoke with Jossue ([phone]) over phone, who states patient was admitted to this facility on 12/18 for fall. She was then at [facility] for rehab and came home 2 days ago. He states the patient was having diarrhea and he states he is 83 years old and unable to care for patient so he sent her to ER for evaluation. He states the patient does not have a PMD. Impression: Diarrhea. pt with low grade fever and tachycardia rule out infection (pna, uti). Plan: -- Labs -- Urinalysis -- C.Diff toxin -- CT Abdomen/Pelvis 0611 VBG reviewed, lactate is 2.3; Repeat VBG ordered for 9am Labs reviewed, WBC elevated, 6% bands noted 0623 CT Abdomen/Pelvis Findings: Significantly distended bladder reaching the level of the umbilicus suggestive of urinary retention. Secondary mild bilateral hydroureteronephrosis. Bilateral mildly enlarged/hypodense common femoral veins. This can secondary to the early arterial phase acquisition/technical factor. Differential diagnosis may include stasis in the common femoral veins secondary to pelvic iliac veins compression by distended bladder in this patient with distended bladder/retention or deep venous thrombosis. Clinical evaluation and possibly correlation with Doppler evaluation is suggested if clinically needed. 4.7 cm right ovarian cyst. Moderate amount of fecal residue is noted in the rectosigmoid colon. Uncomplicated colonic diverticulosis. Distended gallbladder. Cholelithiasis. Gas densities are noted in the gallbladder. This is suspicious for fistulous tract between the gallbladder and the adjacent second portion of the duodenum in this patient without prior history of sphincterotomy. Correlation with prior medical/surgical history is suggested. Minimal central pneumobilia is noted. 1.3 cm benign simple cyst of the right hepatic lobe. The remaining liver is of uniform attenuation without mass or defect. There is no intra or extrahepatic biliary ductal dilatation. The spleen is normal. The pancreas is of normal contour and attenuation characteristics. There is no evidence of adrenal mass. Both kidneys demonstrate prompt and equal nephrograms. The kidneys are normal in size, shape and configuration. There is no evidence of renal or ureteral mass. No renal or ureteral calculi are identified. No evidence for appendicitis. There is no bowel wall thickening. No evidence for small or large bowel obstruction. There is no evidence of abdominal ascites or lymphadenopathy. There is no evidence of intrinsic or extrinsic bladder mass. There is no pelvic ascites or lymphadenopathy. Images of the lung bases show no evidence of pleural or parenchymal mass. There are no pleural effusions. The bony structures are free of lytic or blastic lesions. IMPRESSION: Significantly distended bladder reaching the level of the umbilicus suggestive of urinary retention. Secondary mild bilateral hydroureteronephrosis. Bilateral mildly enlarged/hypodense common femoral veins. This can secondary to the early arterial phase acquisition/technical factor. Differential diagnosis may include stasis in the common femoral veins secondary to pelvic iliac veins compression by distended bladder in this patient with distended bladder/retention or deep venous thrombosis. Clinical evaluation and possibly correlation with Doppler evaluation is suggested if clinically needed. 4.7 cm right ovarian cyst. Moderate amount of fecal residue is noted in the rectosigmoid colon. Uncomplicated colonic diverticulosis. Distended gallbladder. Cholelithiasis. Gas densities are noted in the gallbladder. This is suspicious for fistulous tract between the gallbladder and the adjacent second portion of the duodenum in this patient without prior history of sphincterotomy. Correlation with prior medical/surgical history is suggested. Minimal central pneumobilia is noted. 1.3 cm benign simple cyst of the right hepatic lobe. 0633 Patient meets sepsis criteria as patient is tachycardic, has a white count and high lactate on VBG IV Zosyn initiated. Surgery consult placed. 0638 Patient currently pending UA - need to rule out uti US Abdomen ordered for further galbladder evaluation. CXR ordered. vice president client services will come to ER & evaluate patient. 0700 Patient signed out to Dr. Reddy pending UA, US Galbladder, CXR, and neurosurgical physician assistant evaluation. Scribe Attestation: Documented by Jackie Altamirano acting as a scribe for Nithin Kay MD. Provider Scribe Attestation: All medical record entries made by the Scribe were at my direction and personally dictated by me. I have reviewed the chart and agree that the record accurately reflects my personal performance of the history, physical exam, medical decision making, and the department course for this patient. I have also personally directed, reviewed, and agree with the discharge instructions and disposition. Disposition - Clinical Impression Clinical Impression: UTI (urinary tract infection), Sepsis - Patient ED Disposition Is Patient to be Admitted: Transfer of Care - Disposition Disposition: Transfer of Care Disposition Time: 07:00 Condition: GUARDED Patient Signed Over To: Anya Reddy
[2019-02-06 04:40] LABS: BASO % 0.2 % (0.0-2.0); EOS # 0.1 K/uL (0.0-0.7); EOS % 0.4 % (0.0-4.0); HEMOGLOBIN 13.9 g/dL (12.0-16.0); LYMPH # 0.6 K/uL (1.0-4.3); LYMPH % 3.7 % (20.0-40.0); MEAN CELL VOLUME 87.7 fl (81.0-99.0); MEAN CORPUSCULAR HEMOGLOBIN 28.7 pg (27.0-31.0); MEAN CORPUSCULAR HGB CONC 32.8 g/dL (33.0-37.0); MEAN PLATELET VOLUME 7.8 fl (7.2-11.7); MONO # 1.4 K/uL (0.0-0.8); MONO % 8.4 % (0.0-10.0); NEUT # 14.6 K/uL (1.8-7.0); NEUT % 87.3 % (50.0-75.0); PLATELET COUNT 370 K/uL (130-400); RBC 4.83 Mil/uL (3.80-5.20); RED CELL DISTRIBUTION WIDTH 15.3 % (11.5-14.5); WHITE BLOOD COUNT 16.7 K/uL (4.8-10.8)
[2019-02-06 04:42] LABS: ALB/GLOB RATIO 0.9 (1.0-2.1); ALBUMIN 3.6 g/dL (3.5-5.0); CALCIUM 9.9 mg/dL (8.4-10.2)
[2019-02-06] MEDS ORDERED: Iohexol 300 100 ML IJ ONE (05:22)
[2019-02-06] MEDS ORDERED: Sodium Chloride 0.9% 50 ML IV ONE (05:22)
[2019-02-06 05:51] LABS: BANDS 6 % (0-2); LYMPHOCYTE 5 % (20-50); METAMYELOCYTE 2 % (0-0); MONOCYTE 6 % (0-10); NEUTROPHIL 80 % (42-75); PLATELET ESTIMATE NORMAL (NORMAL); SMUDGE CELLS PRESENT; TOTAL CELLS COUNTED 100; TOXIC GRANULATION PRESENT
[2019-02-06 05:52] LABS: MYELOCYTE 1 % (0-0)
[2019-02-06] MEDS ORDERED: Sodium Chloride 0.9% 1,000 ML IV STA ×2 (05:53→09:25)
[2019-02-06 06:16] LABS: VENOUS BLOOD GAS BASE EXCESS 5.3 mmol/L (0.0-2.0); VENOUS BLOOD GAS PCO2 49 mmHg (40-60); VENOUS BLOOD GAS PO2 30 mm/Hg (30-55); VENOUS BLOOD PH 7.41 (7.32-7.43)
[2019-02-06] MEDS ORDERED: Piperacillin/Tazobact 3.375 GM in Sodium Chloride 0.9% 100 ML IVPB STA (06:26)
[2019-02-06] MEDS ORDERED: Piperacillin/Tazobact 3.375 gm Inj IVPB ONE (06:48)
--- NOTE | 2019-02-06 07:10 | ED PDOC ---
- Laboratory Results Result Diagrams: 02/06/19 04:00 02/06/19 04:00 Lab Results: pO2 30 mm/Hg (30-55) 02/06/19 06:11 VBG pH 7.41 (7.32-7.43) 02/06/19 06:11 VBG pCO2 49 mmHg (40-60) 02/06/19 06:11 VBG HCO3 28.0 mmol/L 02/06/19 06:11 VBG Total CO2 32.6 mmol/L (22-28) H 02/06/19 06:11 VBG O2 Sat (Calc) 58.1 % (40-65) 02/06/19 06:11 VBG Base Excess 5.3 mmol/L (0.0-2.0) H 02/06/19 06:11 VBG Potassium 3.6 mmol/L (3.6-5.2) 02/06/19 06:11 Sodium 136.0 mmol/L (132-148) 02/06/19 06:11 Chloride 98.0 mmol/L (98-107) 02/06/19 06:11 Glucose 116 mg/dL (65-105) H 02/06/19 06:11 Lactate 2.3 mmol/L (0.7-2.1) H 02/06/19 06:11 FiO2 21.0 % 02/06/19 06:11 Total Bilirubin 0.6 mg/dl (0.2-1.3) 02/06/19 04:00 AST 47 U/L (14-36) H D 02/06/19 04:00 ALT 30 U/L (9-52) 02/06/19 04:00 Alkaline Phosphatase 117 U/L (38-126) 02/06/19 04:00 Total Protein 7.6 G/DL (6.3-8.2) 02/06/19 04:00 Albumin 3.6 g/dL (3.5-5.0) 02/06/19 04:00 Globulin 4.0 gm/dL (2.2-3.9) H 02/06/19 04:00 Albumin/Globulin Ratio 0.9 (1.0-2.1) L 02/06/19 04:00 - ECG O2 Sat by Pulse Oximetry: 97 (RA) Pulse Ox Interpretation: Normal Medical Decision Making Medical Decision Making: Time: [address] Kay, pending , abdomen, surgical assistant evaluation and CXR. 802 CXR FINDINGS: LUNGS: No active pulmonary disease. PLEURA: No significant pleural effusion identified, no pneumothorax apparent. CARDIOVASCULAR: Calcific atherosclerotic changes are seen related to the thoracic aorta. Normal cardiac size. No pulmonary vascular congestion. OSSEOUS STRUCTURES: No significant abnormalities. VISUALIZED UPPER ABDOMEN: Normal. OTHER FINDINGS: Surgical clips again noted right breast. IMPRESSION: No interval acute cardiopulmonary disease appreciated. [address] Quinteros. 10:[address] Chu. Scribe Attestation: Documented by Hetal Moura acting as a scribe for Anya Reddy MD. Provider Scribe Attestation: All medical record entries made by the Scribe were at my direction and personally dictated by me. I have reviewed the chart and agree that the record accurately reflects my personal performance of the history, physical exam, medical decision making, and the department course for this patient. I have also personally directed, reviewed, and agree with the discharge instructions and disposition. Disposition - Clinical Impression Clinical Impression: UTI (urinary tract infection), Sepsis - POA Present On Arrival: Pressure Ulcer - Disposition Disposition: Admitted as In-Patient Disposition Time: 09:29 Condition: GUARDED
--- NOTE | 2019-02-06 07:44 | CP.PCM.CON ---
Review of Systems - Review of Systems Systems not reviewed;Unavailable: Altered Mental Status All systems: reviewed and no additional remarkable complaints except Past Patient History - Past Medical History & Family History Past Medical History?: Yes - Past Social History Smoking Status: Never Smoked - CARDIAC Hx Hypertension: Yes - PULMONARY Hx Respiratory Disorders: No - NEUROLOGICAL Hx Dementia: Yes - HEENT Hx HEENT Problems: No - RENAL Hx Chronic Kidney Disease: No - ENDOCRINE/METABOLIC Hx Endocrine Disorders: No - HEMATOLOGICAL/ONCOLOGICAL Hx Human Immunodeficiency Virus (HIV): No - INTEGUMENTARY Hx Dermatological Problems: No - MUSCULOSKELETAL/RHEUMATOLOGICAL Hx Musculoskeletal Disorders: Yes Hx Falls: Yes - GASTROINTESTINAL Hx Gastrointestinal Disorders: No - GENITOURINARY/GYNECOLOGICAL Hx Genitourinary Disorders: No Other/Comment: BREAST CA W/ CHEMO - PSYCHIATRIC Hx Psychophysiologic Disorder: No Hx Substance Use: No - SURGICAL HISTORY Hx Surgeries: Yes Other/Comment: 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 - ANESTHESIA Hx Anesthesia: Yes Hx Anesthesia Reactions: No Hx Malignant Hyperthermia: No Meds Allergies/Adverse Reactions: Allergies Allergy/AdvReac Type Severity Reaction Status Date / Time No Known Allergies Allergy Verified 12/17/18 18:41 Physical Exam - Constitutional Appears: Non-toxic - Head Exam Head Exam: ATRAUMATIC, NORMAL INSPECTION, NORMOCEPHALIC - Eye Exam Eye Exam: EOMI, Normal appearance. absent: Scleral icterus - ENT Exam ENT Exam: Mucous Membranes Moist - Respiratory Exam Respiratory Exam: NORMAL BREATHING PATTERN. absent: Accessory Muscle Use - Cardiovascular Exam Cardiovascular Exam: RRR. absent: JVD - GI/Abdominal Exam GI & Abdominal Exam: Soft. absent: Distended, Firm, Guarding, Rebound, Rigid, Tenderness Additional comments: Negative Krueger's Sign No RUQ tenderness - Extremities Exam Extremities exam: Positive for: normal inspection. Negative for: calf tenderness - Neurological Exam Neurological exam: Alert Additional comments: Responds to some questions appropriately - Psychiatric Exam Psychiatric exam: Normal Affect, Normal Mood - Skin Skin Exam: Dry, Intact, Normal Color, Warm Results - Vital Signs Recent Vital Signs: Last Vital Signs Temp 99.4 F 02/06/19 03:05 Pulse 131 H 02/06/19 03:05 Resp 18 02/06/19 03:05 BP 139/83 02/06/19 03:05 Pulse Ox 97 02/06/19 07:10 - Labs Result Diagrams: 02/06/19 04:00 02/06/19 04:00 Labs: Laboratory Results - last 24 hr 02/06/19 02/06/19 02/06/19 04:00 04:00 06:11 WBC 16.7 H D RBC 4.83 Hgb 13.9 Hct 42.3 MCV 87.7 MCH 28.7 MCHC 32.8 L RDW 15.3 H Plt Count 370 D MPV 7.8 Neut % (Auto) 87.3 H Lymph % (Auto) 3.7 L [place] % (Auto) 8.4 Eos % (Auto) 0.4 Baso % (Auto) 0.2 Neut # (Auto) 14.6 H Lymph # (Auto) 0.6 L [place] # (Auto) 1.4 H Eos # (Auto) 0.1 Baso # (Auto) 0.0 Neutrophils % (Manual) 80 H Band Neutrophils % 6 H Lymphocytes % (Manual) 5 L Monocytes % (Manual) 6 Metamyelocytes % 2 H Myelocytes % 1 H Smudge Cells Present Toxic Granulation Present Platelet Estimate Normal RBC Morphology Normal pO2 30 VBG pH 7.41 VBG pCO2 49 VBG HCO3 28.0 VBG Total CO2 32.6 H VBG O2 Sat (Calc) 58.1 VBG Base Excess 5.3 H VBG Potassium 3.6 Glucose 116 H Lactate 2.3 H FiO2 21.0 Sodium 137 136.0 Potassium 4.0 Chloride 94 L 98.0 Carbon Dioxide 31 H Anion Gap 16 BUN 60 H Creatinine 1.2 Est GFR ( Amer) 52 Est GFR (Non-Af Amer) 43 Random Glucose 131 H Calcium 9.9 Total Bilirubin 0.6 AST 47 H D ALT 30 Alkaline Phosphatase 117 Total Protein 7.6 Albumin 3.6 Globulin 4.0 H Albumin/Globulin Ratio 0.9 L Venous Blood Potassium 3.6
--- NOTE | 2019-02-06 08:06 | RAD ---
Date of service: 02/06/2019 HISTORY: sepsis COMPARISON: Frontal chest radiograph 12/17/2018. TECHNIQUE: 1 view obtained. FINDINGS: LUNGS: No active pulmonary disease. PLEURA: No significant pleural effusion identified, no pneumothorax apparent. CARDIOVASCULAR: Calcific atherosclerotic changes are seen related to the thoracic aorta. Normal cardiac size. No pulmonary vascular congestion. OSSEOUS STRUCTURES: No significant abnormalities. VISUALIZED UPPER ABDOMEN: Normal. OTHER FINDINGS: Surgical clips again noted right breast. IMPRESSION: No interval acute cardiopulmonary disease appreciated.
[2019-02-06 08:18] LABS: SQUAMOUS EPITHIAL 1 /hpf (0-5); URINE BACTERIA FEW (<OCC); URINE BILIRUBIN NEGATIVE (NEGATIVE); URINE BLOOD SMALL (NEGATIVE); URINE CLARITY SLIGHTY-CLOUDY (Clear); URINE COLOR YELLOW (YELLOW); URINE GLUCOSE (UA) NEG (NEGATIVE); URINE LEUKOCYTE ESTERASE NEG Leu/uL (Negative); URINE PROTEIN 100 mg/dL (NEGATIVE); URINE UROBILINOGEN 0.2-1.0 mg/dL (0.2-1.0)
--- NOTE | 2019-02-06 08:50 | US ---
Date of service: 02/06/2019 HISTORY: dustebded gb COMPARISON: None. TECHNIQUE: Sonographic evaluation of the right upper quadrant of the abdomen. FINDINGS: LIVER: Measures 14.4 cm in length. Normal echogenicity of the liver parenchyma. No mass. No intrahepatic bile duct dilatation. GALLBLADDER: Cholelithiasis is identified within a moderately distended gallbladder. Tumefactive sludge is felt to present intermixed with these calculi with the majority of color Doppler images showing no blood flow. One image in series 1, image 46 demonstrates limited color Doppler signal which on discussion with the technologist, this is artifactual and is not reproducible. Correlation with prior CT performed 02/06/2019 05:35 a.m. fails demonstrate prominent enhancing mass in the gallbladder lumen as well. Gas is appreciated in lumen there with subtle evidence of gas seen in the ultrasound exam at the nondependent lumen of the gallbladder. No pericholecystic fluid collection. No reported sonographic Krueger sign. Clinically correlate for cholecystitis nevertheless. COMMON BILE DUCT: Measures 2.4 mm. No stones. No dilatation. PANCREAS: The majority the body of the pancreas unremarkable for artifacts limit the evaluation distally. Tail and head of the pancreas are obscured by overlying gastrointestinal gas. RIGHT KIDNEY: Measures 10.8 cm in length. Normal echogenicity. No calculus, mass, or hydronephrosis. AORTA: No aneurysmal dilatation. IVC: Unremarkable. OTHER FINDINGS: None . IMPRESSION: Cholelithiasis identified within a mildly distended gallbladder with gas confirmed in the nondependent lumen as well. No biliary tree dilatation appreciable or sonographic Krueger sign. No pericholecystic fluid collection. Clinically core for acute cholecystitis nevertheless. Partial imaging of the pancreas with remainder of the exam unremarkable.
[2019-02-06 10:00] LABS: VENOUS BLOOD GAS BASE EXCESS 4.7 mmol/L (0.0-2.0); VENOUS BLOOD GAS PCO2 53 mmHg (40-60); VENOUS BLOOD GAS PO2 23 mm/Hg (30-55); VENOUS BLOOD PH 7.38 (7.32-7.43)
--- NOTE | 2019-02-06 10:30 | CP.PCM.CON ---
History of Present Illness - History of Present Illness History of Present Illness: 83yo F history of HTN, Breast CA s/p chemo poor historian but unable to answer some questions. As per records, pt was brought to ED for complaints of abdominal pain. Pt in emergency room had a CT and GB u/S with possible air within gal lbladder. General Surgery consulted for further evaluation. Pt seen at bedside, with surgical scrub technologist Dr Kong. Pt oriented to person and placed. Pt reports abdominal pain but unable to full provided any other pertinent information. Unable to asses for full review of system due to pts current mental status. Pt states she lives at home with . Review of Systems - Review of Systems Systems not reviewed;Unavailable: Acuity of Condition, Dementia, Altered Mental Status - Gastrointestinal Gastrointestinal: Abdominal Pain Past Patient History - Past Medical History & Family History Past Medical History?: Yes - Past Social History Smoking Status: Never Smoked - CARDIAC Hx Hypertension: Yes - PULMONARY Hx Respiratory Disorders: No - NEUROLOGICAL Hx Dementia: Yes - HEENT Hx HEENT Problems: No - RENAL Hx Chronic Kidney Disease: No - ENDOCRINE/METABOLIC Hx Endocrine Disorders: No - HEMATOLOGICAL/ONCOLOGICAL Hx Cancer: Yes (Breast Cancer ) Hx Human Immunodeficiency Virus (HIV): No - INTEGUMENTARY Hx Dermatological Problems: No - MUSCULOSKELETAL/RHEUMATOLOGICAL Hx Musculoskeletal Disorders: Yes Hx Falls: Yes - GASTROINTESTINAL Hx Gastrointestinal Disorders: No - GENITOURINARY/GYNECOLOGICAL Hx Genitourinary Disorders: No Other/Comment: BREAST CA W/ CHEMO - PSYCHIATRIC Hx Psychophysiologic Disorder: No Hx Substance Use: No - SURGICAL HISTORY Hx Surgeries: Yes Other/Comment: 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 - ANESTHESIA Hx Anesthesia: Yes Hx Anesthesia Reactions: No Hx Malignant Hyperthermia: No Meds Allergies/Adverse Reactions: Allergies Allergy/AdvReac Type Severity Reaction Status Date / Time No Known Allergies Allergy Verified 12/17/18 18:41 - Medications Medications: Current Medications Sodium Chloride (Sodium Chloride 0.9%) 1,000 mls @ 125 mls/hr IV .Q8H STA Stop: 02/06/19 17:24 Physical Exam - Constitutional Appears: Agitated, Confused Additional comments: mild distress, confused - Head Exam Head Exam: ATRAUMATIC, NORMAL INSPECTION, NORMOCEPHALIC - Eye Exam Eye Exam: PERRL - ENT Exam ENT Exam: Mucous Membranes Dry - Neck Exam Neck exam: Negative for: Lymphadenopathy, Tenderness, Thyromegaly - Respiratory Exam Respiratory Exam: Clear to Auscultation Bilateral, NORMAL BREATHING PATTERN. absent: Respiratory Distress, Stridor - Cardiovascular Exam Cardiovascular Exam: Tachycardia, +S1, +S2 - GI/Abdominal Exam GI & Abdominal Exam: Soft, Tenderness. absent: Firm, Guarding, Hernia, Mass, Rebound, Rigid Additional comments: abd: soft, most distention to lower abdomen bilateral abdomen with dullness to percussion, upper abdomen soft, typmanic, tenderness to RUQ on deep palpation, no hernias, no peritoneal signs Rectal: no masses, no gross blood, stool in vault. - Exam Exam: Bladder Distension (tenderness to suprapubic area, bladder distention on CT, ) - Extremities Exam Extremities exam: Positive for: calf tenderness (to right LE, ), normal inspection (to left extremity ) Additional comments: right lower extremity swollen and tenderness to palpation compared to LLE - Neurological Exam Neurological exam: Alert Additional comments: oriented to person and placed - Skin Skin Exam: Warm Additional comments: sacral decubitis ulcer stage 4, foul smelling, necrotic skin Results - Vital Signs Recent Vital Signs: Last Vital Signs Temp 98.2 F 02/06/19 08:57 Pulse 122 H 02/06/19 08:57 Resp 17 02/06/19 08:57 BP 131/66 02/06/19 08:57 Pulse Ox 97 02/06/19 09:27 - Labs Result Diagrams: 02/06/19 04:00 02/06/19 04:00 Labs: Laboratory Results - last 24 hr 02/06/19 02/06/19 02/06/19 04:00 04:00 06:11 WBC 16.7 H D RBC 4.83 Hgb 13.9 Hct 42.3 MCV 87.7 MCH 28.7 MCHC 32.8 L RDW 15.3 H Plt Count 370 D MPV 7.8 Neut % (Auto) 87.3 H Lymph % (Auto) 3.7 L [place] % (Auto) 8.4 Eos % (Auto) 0.4 Baso % (Auto) 0.2 Neut # (Auto) 14.6 H Lymph # (Auto) 0.6 L [place] # (Auto) 1.4 H Eos # (Auto) 0.1 Baso # (Auto) 0.0 Neutrophils % (Manual) 80 H Band Neutrophils % 6 H Lymphocytes % (Manual) 5 L Monocytes % (Manual) 6 Metamyelocytes % 2 H Myelocytes % 1 H Smudge Cells Present Toxic Granulation Present Platelet Estimate Normal RBC Morphology Normal pO2 30 VBG pH 7.41 VBG pCO2 49 VBG HCO3 28.0 VBG Total CO2 32.6 H VBG O2 Sat (Calc) 58.1 VBG Base Excess 5.3 H VBG Potassium 3.6 Glucose 116 H Lactate 2.3 H FiO2 21.0 Sodium 137 136.0 Potassium 4.0 Chloride 94 L 98.0 Carbon Dioxide 31 H Anion Gap 16 BUN 60 H Creatinine 1.2 Est GFR ( Amer) 52 Est GFR (Non-Af Amer) 43 Random Glucose 131 H Calcium 9.9 Total Bilirubin 0.6 AST 47 H D ALT 30 Alkaline Phosphatase 117 Total Protein 7.6 Albumin 3.6 Globulin 4.0 H Albumin/Globulin Ratio 0.9 L Venous Blood Potassium 3.6 Urine Color Urine Clarity Urine pH Ur Specific [place] Urine Protein Urine Glucose (UA) Urine Ketones Urine Blood Urine Nitrate Urine Bilirubin Urine Urobilinogen Ur Leukocyte Esterase Urine RBC (Auto) Urine Microscopic WBC Ur Squamous Epith Cells Urine Bacteria 02/06/19 02/06/19 07:10 08:57 WBC RBC Hgb Hct MCV MCH MCHC RDW Plt Count MPV Neut % (Auto) Lymph % (Auto) [place] % (Auto) Eos % (Auto) Baso % (Auto) Neut # (Auto) Lymph # (Auto) [place] # (Auto) Eos # (Auto) Baso # (Auto) Neutrophils % (Manual) Band Neutrophils % Lymphocytes % (Manual) Monocytes % (Manual) Metamyelocytes % Myelocytes % Smudge Cells Toxic Granulation Platelet Estimate RBC Morphology pO2 23 L VBG pH 7.38 VBG pCO2 53 VBG HCO3 26.7 VBG Total CO2 33.0 H VBG O2 Sat (Calc) 37.8 L VBG Base Excess 4.7 H VBG Potassium 3.7 Glucose 111 H Lactate 2.4 H FiO2 21.0 Sodium 139.0 Potassium Chloride 100.0 Carbon Dioxide Anion Gap BUN Creatinine Est GFR ( Amer) Est GFR (Non-Af Amer) Random Glucose Calcium Total Bilirubin AST ALT Alkaline Phosphatase Total Protein Albumin Globulin Albumin/Globulin Ratio Venous Blood Potassium 3.7 Urine Color Yellow Urine Clarity Slighty-cloudy Urine pH 5.0 Ur Specific [place] 1.021 Urine Protein 100 Urine Glucose (UA) Neg Urine Ketones Negative Urine Blood Small Urine Nitrate Negative Urine Bilirubin Negative Urine Urobilinogen 0.2-1.0 Ur Leukocyte Esterase Neg Urine RBC (Auto) 4 H Urine Microscopic WBC 3 Ur Squamous Epith Cells 1 Urine Bacteria Few H Assessment & Plan - Assessment and Plan (Free Text) Assessment: 83yo F with abdominal pain, cholelithiasis, leukocytosis -CT scan/US reviewed - distended gallbladder, air within gallbladder, questionable fistula between gb and duodenum -pt has no signs of small bowel obstruction -HIDA scan r/o acute cholecysitis -infected decubitis ulcer - wound care evaluation, may need debridement -IV hydration -IV abx -repeat labs in AM, trend LFTs -Right lower extremity swelling - recommend U/S - r/o DVT -pt has other possible sources of increase WBC, will continue to follow patient and f/u HIDA scan results -
--- NOTE | 2019-02-06 10:42 | CT ---
Date of service: 02/06/2019 PROCEDURE: CT Abdomen and Pelvis with contrast HISTORY: abd pain COMPARISON: None. TECHNIQUE: Following the intravenous administration of iodinated contrast material, a CT examination of the abdomen and pelvis was performed from the domes of the diaphragms to the symphysis pubis with reformatted datasets provided in axial, sagittal and coronal planes. Oral contrast was not administered as per referring physician request. Contrast dose: Omnipaque 300, 95 cc Radiation dose: Total exam DLP = 784.8 mGy-cm. This CT exam was performed using one or more of the following dose reduction techniques: Automated exposure control, adjustment of the mA and/or kV according to patient size, and/or use of iterative reconstruction technique. FINDINGS: LOWER THORAX: Cardiomegaly identified. Limited bilateral basilar dependent atelectasis noted. No pleural or pericardial effusion. LIVER: 1.8 x 0.8 cm lucency is seen at the medial right lobe liver close to the dome anteriorly, potentially representing a complex cyst as it measures 20 Hounsfield units. Consider follow-up MRI without contrast for added characterization. Remainder the liver only for trace gas within a small central intrahepatic duct immediately cephalad to the claus hepatis. GALLBLADDER AND BILE DUCTS: Gallbladder is distended but thin and smooth walled with cholelithiasis layering in the dependent portion. Gas is seen in the nondependent gallbladder lumen but not in the common bile duct. Clinically correlate for potential cholecystitis though no other sign of cholecystitis is appreciate including pericholecystic fluid. A duodenal diverticulum is felt to contain gas but not the common bile duct (image 53 series 3). PANCREAS: Unremarkable. No gross lesion or ductal dilatation. SPLEEN: Unremarkable. ADRENALS: Unremarkable. No mass. KIDNEYS AND URETERS: Mild bilateral hydronephrosis felt to be a function of hydrostatic etiology given mild bilateral hydroureter and marked distention of the urinary bladder in particular. VASCULATURE: Nonaneurysmal abdominal aortic calcific atherosclerotic changes are identified. BOWEL: No small or large bowel obstruction appreciable with [id number] fecal loading seen throughout various large-bowel segments. Left colonic diverticular changes are nonacute with rectum mild to moderately distended with retained gas and stool. APPENDIX: Normal appendix. PERITONEUM: Unremarkable. No free fluid. No free air. LYMPH NODES: No significant lymphadenopathy. BLADDER: Markedly distended urinary bladder with thin smooth wall and no radiodense urolithiasis in the lumen. REPRODUCTIVE: 4.3 x 4.0 cm right adnexal cyst. BONES: Grade 1 spondylolistheses are identified at L4-5 and L5-S1 with L4 slightly anterior to L5 and L5 minimally slightly anterior to S1 on a degenerative facet joint arthropathy basis. No spondylolysis appreciated bilaterally. OTHER FINDINGS: None. IMPRESSION: 1. Pneumobilia is identified within a distended gallbladder with cholelithiasis present however there is no mural thickening or pericholecystic fluid collection a. No significant biliary tree dilatation either. Trace pneumobilia is seen at a small intrahepatic duct cephalad to the claus hepatis. Etiology is unclear. Consider possible recent instrumentation. Cholecystitis is not clearly favored but is not excluded. 2. 1.8 cm lucency seen at the medial right lobe liver potentially representing a cyst though this is not definite. Consider follow-up MRI without contrast for added characterization. 3. Left colonic diverticulosis without diverticulitis. 4. Likely hydrostatic mild hydronephrosis bilaterally with urinary bladder markedly distended. 5. 4.3 cm right adnexal cyst. Consider follow-up pelvic ultrasonography for added characterization. 6. There is poor opacification of the bilateral common femoral veins and none in the bilateral common iliac and external iliac veins with the IVC collapse. This could be a function of hypovolemia but trace enhancement may be present at the bilateral common femoral veins. Consider potential bilateral deep venous thrombosis of the bilateral common femoral veins and possibly the iliac venous system as well. Follow-up lower extremity venous ultrasound recommended. Concordant preliminary report from [facility], 02/06/2019, 6:22 a.m..
--- NOTE | 2019-02-06 11:24 | CP.PCM.CON ---
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 PMHx: Dementia, HTN, Breast CA s/p chemo PSHx: Breast mass excision Family Hx: Denies Social Hx: Denies Tobacco use, Denies ETOH use, Denies illicit drugs. Lives at home with NKDA Review of Systems - Review of Systems All systems: reviewed and no additional remarkable complaints except - Constitutional Constitutional: As Per HPI - EENT Eyes: absent: As Per HPI, Blind Spots, Blurred Vision, Change in Vision, Decreased Night Vision, Diplopia, Discharge, Dry Eye, Exophthalmos, Floaters, Irritation, Itchy Eyes, Loss of Peripheral Vision, Pain, Photophobia, Requires Corrective Lenses, Sees Flashes, Spots in Vision, Tunnel Vision, Other Visual Disturbances, Loss of Vision, Other Ears: absent: As Per HPI, Decreased Hearing, Ear Discharge, Ear Pain, Tinnitus, Abnormal Hearing, Disequilibrium, Dizziness, Other Nose/Mouth/Throat: absent: As Per HPI, Epistaxis, Nasal Congestion, Nasal Disch arge, Nasal Obstruction, Nasal Trauma, Nose Pain, Post Nasal Drip, Sinus Pain, Sinus Pressure, Bleeding Gums, Change in Voice, Dental Pain, Dry Mouth, Dysphagia, Halitosis, Hoarsness, Lip Swelling, Mouth Lesions, Mouth Pain, Odynophagia, Sore Throat, Throat Swelling, Tongue Swelling, Facial Pain, Neck Pain, Neck Mass, Other - Breasts Breasts: absent: As Per HPI, Change in Shape, Mass, Pain, Nipple Discharge, Nipple Inversion, Skin Changes, Swelling, Other - Cardiovascular Cardiovascular: absent: As Per HPI, Acrocyanosis, Chest Pain, Chest Pain at Rest, Chest Pain with Activity, Claudication, Diaphoresis, Dyspnea, Dyspnea on Exertion, Edema, Irregular Heart Rhythm, Pain Radiating to Arm/Neck/Jaw, Leg Edema, Leg Ulcers, Lightheadedness, Orthopnea, Palpitations, Paroxysmal Nocturnal Dyspnea, Pedal Edema, Radiating Pain, Rapid Heart Rate, Slow Heart Rate, Syncope, Other - Respiratory Respiratory: absent: As Per HPI, Cough, Dyspnea, Hemoptysis, Dyspnea on Exertion, Wheezing, Snoring, Stridor, Pain on Inspiration, Chest Congestion, Excessive Mucous Production, Change in Mucous Color, Pain with Coughing, Other - Gastrointestinal Gastrointestinal: As Per HPI - Genitourinary Genitourinary: As Per HPI - Reproductive: Female Reproductive:Female: absent: As Per HPI, Amenorrhea, Amenorrhea/ Control, Currently Menstual, Cycle <21 Days, Cycle >35 Days, Cycle Variable, Menses 1-7 Days, Menses >/= 8 Days, Menses Variable, Cycle > 4 Weeks Between, No Menses for 6 Months, Heavy Menses, Light Menses, Normal Menses, Spotting Between Cycles, S/P Hysterectomy, Menopausal, Post Menopausal, Premenarche, Abnormal Vaginal Bleeding, Dysmenorrhea, Dyspareunia, Genital Lesions, Genital Pruritis, Pelvic Pain, Prolapse Symptoms, Sexual Dysfunction, Vaginal Discharge, Vaginal Dryness, Vaginal Odor, Vaginal Pruritis, Other - Menstruation Menstruation: absent: As Per HPI, Amenorrhea, Amenorrhea/ Control, Currently Menstual, Cycle <21 Days, Cycle >35 Days, Cycle Variable, Menses 1-7 Days, Menses >/= 8 Days, Menses Variable, Cycle > 4 Weeks Between, No Menses for 6 Months, Heavy Menses, Light Menses, Normal Menses, Spotting Between Cycles, S/P Hysterectomy, Menopausal, Post Menopausal, Premenarche, Abnormal Vaginal Bleeding, Dysmenorrhea, Other - Musculoskeletal Musculoskeletal: As Per HPI - Integumentary Integumentary: As Per HPI, Skin Pain, Wounds - Neurological Neurological: As Per HPI - Psychiatric Psychiatric: Confusion, Memory Loss - Endocrine Endocrine: absent: As Per HPI, Change in Body Appearance, Change in Libido, Cold Intolorance, Deepening of Voice, Excessive Sweating, Fatigue, Flushing, Heat Intolorance, Increase in Ring/Shoe/Hat Size, Palpitations, Polydipsia, Polyphagia, Polyuria, Other - Hematologic/Lymphatic Hematologic: absent: As Per HPI, Easy Bleeding, Easy Bruising, Lymphadenopathy, Other Past Patient History - Past Medical History & Family History Past Medical History?: Yes - Past Social History Smoking Status: Never Smoked - CARDIAC Hx Hypertension: Yes - PULMONARY Hx Respiratory Disorders: No - NEUROLOGICAL Hx Dementia: Yes - HEENT Hx HEENT Problems: No - RENAL Hx Chronic Kidney Disease: No - ENDOCRINE/METABOLIC Hx Endocrine Disorders: No - HEMATOLOGICAL/ONCOLOGICAL Hx Cancer: Yes (Breast Cancer ) Hx Human Immunodeficiency Virus (HIV): No - INTEGUMENTARY Hx Dermatological Problems: No - MUSCULOSKELETAL/RHEUMATOLOGICAL Hx Musculoskeletal Disorders: Yes Hx Falls: Yes - GASTROINTESTINAL Hx Gastrointestinal Disorders: No - GENITOURINARY/GYNECOLOGICAL Hx Genitourinary Disorders: No Other/Comment: BREAST CA W/ CHEMO - PSYCHIATRIC Hx Psychophysiologic Disorder: No Hx Substance Use: No - SURGICAL HISTORY Hx Surgeries: Yes Other/Comment: 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 - ANESTHESIA Hx Anesthesia: Yes Hx Anesthesia Reactions: No Hx Malignant Hyperthermia: No Meds Allergies/Adverse Reactions: Allergies Allergy/AdvReac Type Severity Reaction Status Date / Time No Known Allergies Allergy Verified 12/17/18 18:41 - Medications Medications: Current Medications Sodium Chloride (Sodium Chloride 0.9%) 1,000 mls @ 125 mls/hr IV .Q8H STA Stop: 02/06/19 17:24 Last Admin: 02/06/19 10:27 Dose: 125 mls/hr Physical Exam - Constitutional Appears: Non-toxic, No Acute Distress, Confused, Chronically Ill - Head Exam Head Exam: NORMOCEPHALIC - Eye Exam Eye Exam: absent: Scleral icterus Pupil Exam: NORMAL ACCOMODATION - ENT Exam ENT Exam: Mucous Membranes Dry, Normal External Ear Exam - Neck Exam Neck exam: Negative for: Lymphadenopathy, Thyromegaly - Respiratory Exam Respiratory Exam: Decreased Breath Sounds, Prolonged Expiratory Phase, Rhonchi - Cardiovascular Exam Cardiovascular Exam: Tachycardia, REGULAR RHYTHM, +S1, +S2 - GI/Abdominal Exam GI & Abdominal Exam: Diminished Bowel Sounds, Distended (x), Soft. absent: Tenderness - Rectal Exam Rectal Exam: Deferred - Exam Exam: NORMAL INSPECTION - Extremities Exam Extremities exam: Positive for: pedal edema, pedal pulses present. Negative for: calf tenderness, tenderness - Back Exam Back exam: absent: CVA tenderness (L), CVA tenderness (R), NORMAL INSPECTION Additional comments: sacral decubitus ++ - Neurological Exam Neurological exam: Alert, Altered, CN II-XII Intact - Psychiatric Exam Psychiatric exam: Depressed - Skin Skin Exam: Dry, Erythema, Warm Results - Vital Signs Recent Vital Signs: Last Vital Signs Temp 98.2 F 02/06/19 08:57 Pulse 122 H 02/06/19 08:57 Resp 17 02/06/19 08:57 BP 131/66 02/06/19 08:57 Pulse Ox 97 02/06/19 10:33 - Labs Result Diagrams: 02/06/19 04:00 02/06/19 04:00 Labs: Laboratory Results - last 24 hr 02/06/19 02/06/19 02/06/19 04:00 04:00 06:11 WBC 16.7 H D RBC 4.83 Hgb 13.9 Hct 42.3 MCV 87.7 MCH 28.7 MCHC 32.8 L RDW 15.3 H Plt Count 370 D MPV 7.8 Neut % (Auto) 87.3 H Lymph % (Auto) 3.7 L [place] % (Auto) 8.4 Eos % (Auto) 0.4 Baso % (Auto) 0.2 Neut # (Auto) 14.6 H Lymph # (Auto) 0.6 L [place] # (Auto) 1.4 H Eos # (Auto) 0.1 Baso # (Auto) 0.0 Neutrophils % (Manual) 80 H Band Neutrophils % 6 H Lymphocytes % (Manual) 5 L Monocytes % (Manual) 6 Metamyelocytes % 2 H Myelocytes % 1 H Smudge Cells Present Toxic Granulation Present Platelet Estimate Normal RBC Morphology Normal pO2 30 VBG pH 7.41 VBG pCO2 49 VBG HCO3 28.0 VBG Total CO2 32.6 H VBG O2 Sat (Calc) 58.1 VBG Base Excess 5.3 H VBG Potassium 3.6 Glucose 116 H Lactate 2.3 H FiO2 21.0 Sodium 137 136.0 Potassium 4.0 Chloride 94 L 98.0 Carbon Dioxide 31 H Anion Gap 16 BUN 60 H Creatinine 1.2 Est GFR ( Amer) 52 Est GFR (Non-Af Amer) 43 Random Glucose 131 H Calcium 9.9 Total Bilirubin 0.6 AST 47 H D ALT 30 Alkaline Phosphatase 117 Total Protein 7.6 Albumin 3.6 Globulin 4.0 H Albumin/Globulin Ratio 0.9 L Venous Blood Potassium 3.6 Urine Color Urine Clarity Urine pH Ur Specific [place] Urine Protein Urine Glucose (UA) Urine Ketones Urine Blood Urine Nitrate Urine Bilirubin Urine Urobilinogen Ur Leukocyte Esterase Urine RBC (Auto) Urine Microscopic WBC Ur Squamous Epith Cells Urine Bacteria 02/06/19 02/06/19 07:10 08:57 WBC RBC Hgb Hct MCV MCH MCHC RDW Plt Count MPV Neut % (Auto) Lymph % (Auto) [place] % (Auto) Eos % (Auto) Baso % (Auto) Neut # (Auto) Lymph # (Auto) [place] # (Auto) Eos # (Auto) Baso # (Auto) Neutrophils % (Manual) Band Neutrophils % Lymphocytes % (Manual) Monocytes % (Manual) Metamyelocytes % Myelocytes % Smudge Cells Toxic Granulation Platelet Estimate RBC Morphology pO2 23 L VBG pH 7.38 VBG pCO2 53 VBG HCO3 26.7 VBG Total CO2 33.0 H VBG O2 Sat (Calc) 37.8 L VBG Base Excess 4.7 H VBG Potassium 3.7 Glucose 111 H Lactate 2.4 H FiO2 21.0 Sodium 139.0 Potassium Chloride 100.0 Carbon Dioxide Anion Gap BUN Creatinine Est GFR ( Amer) Est GFR (Non-Af Amer) Random Glucose Calcium Total Bilirubin AST ALT Alkaline Phosphatase Total Protein Albumin Globulin Albumin/Globulin Ratio Venous Blood Potassium 3.7 Urine Color Yellow Urine Clarity Slighty-cloudy Urine pH 5.0 Ur Specific [place] 1.021 Urine Protein 100 Urine Glucose (UA) Neg Urine Ketones Negative Urine Blood Small Urine Nitrate Negative Urine Bilirubin Negative Urine Urobilinogen 0.2-1.0 Ur Leukocyte Esterase Neg Urine RBC (Auto) 4 H Urine Microscopic WBC 3 Ur Squamous Epith Cells 1 Urine Bacteria Few H Assessment & Plan (1) Sepsis Status: Acute (2) UTI (urinary tract infection) Status: Acute (3) Altered mental state Status: Acute (4) Mass of brain Status: Acute (5) Dehydration Status: Resolved - Assessment and Plan (Free Text) Assessment: await cultures and serologies empiric IV rx ordered Flagyl/ Cefepime poor overall prognosis
[2019-02-06] MEDS: metroNIDAZOLE 500mg/100ml NS 100 ML IVPB SCH ×2 (11:45→17:39)
[2019-02-06] MEDS ORDERED: metroNIDAZOLE 500mg/100ml NS 100 ML IVPB ONE (12:15)
--- NOTE | 2019-02-06 12:47 | CARD ---
APPROVED REPORT Date of service: 02/06/2019 EKG Measurement Heart [id number] <Conclusion> Sinus tachycardia with premature atrial complexes Possible Left atrial enlargement Left bundle branch block Abnormal ECG
[2019-02-06] MEDS: Metoprolol 1 mg/ml Inj IVP SCH ×3 (14:30→22:16)
--- NOTE | 2019-02-06 15:20 | NM ---
Date of service: 02/06/2019 PROCEDURE: Nuclear Medicine Hepatobiliary Scan HISTORY: RUQ ab pain COMPARISON: None available. TECHNIQUE: 5.0 mCi of technetium 99m Mebrofenin was administered intravenously. Planar images of the abdomen were obtained at 5 min intervals to 60 mins. Delayed images were also obtained. FINDINGS: LIVER: Timely and homogenous uptake. COMMON BILE DUCT: identified at 10 mins. GALLBLADDER: identified at 15 mins. SMALL BOWEL: Identified at 10 mins. IMPRESSION: No nuclear evidence of cystic or common bile duct obstruction.
[2019-02-06] MEDS: Santyl Collagenase OINTMENT TOP SCH (16:25)
[2019-02-06] MEDS ORDERED: Dextrose 5%/0.45% NS 1,000 ML IV SCH (17:00)
[2019-02-06] MEDS: Proshield Plus GEL TOP SCH (17:10)
[2019-02-06] MEDS: Cefepime 1 GM in Sodium Chloride 0.9% 100 ML IVPB SCH ×2 (18:53→22:07)
[2019-02-07] MEDS: metroNIDAZOLE 500mg/100ml NS 100 ML IVPB SCH ×3 (01:59→17:14)
[2019-02-07] MEDS: Proshield Plus GEL TOP SCH ×3 (03:10→17:10)
[2019-02-07] MEDS: Metoprolol 1 mg/ml Inj IVP SCH ×4 (03:13→21:40)
--- NOTE | 2019-02-07 04:21 | HP ---
HISTORY OF PRESENT ILLNESS: Ms. Heart is an 83-year-old female, who was admitted via the emergency room. The patient was brought in by EMS; complained of abdominal pain, diarrhea, and generalized weakness for the past several days prior to presentation, worse on the day of admission. She is unable to give much history, but was recently discharged to longterm after therapy for multiple medical illnesses including dementia, brain tumor, and dehydration. She was readmitted because of the abdominal discomfort and the finding of a new sacral decubitus ulcer and what appears to be sepsis with dehydration. PAST MEDICAL HISTORY: She has a past medical history of brain mass, breast cancer, status post chemotherapy, dementia, hypertension, and elevated troponin levels secondary to a fall recently in November. During her last admission, the family (daughter) had requested no aggressive intervention for the brain mass. She also has cognitive dysfunction which is probably secondary to dementia, Alzheimer's disease, vitamin B12 deficiency, and left bundle-branch block on EKG. No further history is obtained. PHYSICAL EXAMINATION: GENERAL: The patient is obtunded at present, is lying in bed, appears to be in no apparent distress but is clinically dehydrated. VITAL SIGNS: Remarkable for blood pressure of 122/74, pulse of 117, respiratory rate is 18. She is afebrile with a temperature of 98.1 degrees Fahrenheit, and O2 saturation 95% on room air. SKIN: Shows poor turgor. HEENT: Pupils are reactive with sunken eyeballs. Mouth shows dry mucosa, JVP flat. LUNGS: Coarse bilateral rales, fair aeration. HEART: Tachycardic with frequent extrasystoles. BREASTS: Unremarkable. ABDOMEN: Soft and nontender, no organomegaly. EXTREMITIES: Show no edema or cyanosis. She has a huge stage IV sacral decubitus ulcer, which is present on admission. LABORATORY DATA: Remarkable for WBC of 16.7, hemoglobin 13.9, platelet count 370,000, neutrophils 87.3, lymphocytes 3.7, and bands of 6. Sodium 137, potassium 4, BUN 60, and creatinine 1.2. Chest x-ray, no acute cardiopulmonary pathology noted. HIDA scan, which was done on admission to follow up abdominal tenderness, rule out gallbladder disease, and showed no evidence of cystic or common bile duct obstruction. EKG showed sinus tachycardia with premature atrial complex, possible left atrial enlargement, and left bundle-branch block. IMPRESSION: This is an 85-year-old female with: 1. Generalized weakness, diarrhea, abdominal pain, dementia, brain mass, sacral decubitus ulcer stage IV, clinical features more compatible with sepsis with dehydration. 2. History of hypertension. 3. History of dementia. 4. History of brain mass. 5. History of cardiac arrhythmias with left bundle-branch block. PLAN: Intravenous hydration, wound care, intravenous antibiotic therapy, Infectious Disease evaluation and therapy. We will discuss case with the family regarding palliative care and DNR status. The patient would benefit from long-term longterm placement. Further therapy will depend on finding. Labs were ordered to be repeated in the morning. Septic workup is already done. Rikki Quinteros MD
[2019-02-07 05:35] LABS: MEAN CORPUSCULAR HEMOGLOBIN 28.8 pg (27.0-31.0); MEAN CORPUSCULAR HGB CONC 32.7 g/dL (33.0-37.0); RBC 3.88 Mil/uL (3.80-5.20); WHITE BLOOD COUNT 12.2 K/uL (4.8-10.8)
[2019-02-07 05:39] LABS: HEMOGLOBIN 11.2 g/dL (12.0-16.0)
[2019-02-07 06:08] LABS: ALB/GLOB RATIO 0.9 (1.0-2.1); ALBUMIN 2.7 g/dL (3.5-5.0); ALT/SGPT 36 U/L (9-52); AST/SGOT 34 U/L (14-36); BLOOD UREA NITROGEN 33 mg/dl (7-17); CALCIUM 9.1 mg/dL (8.4-10.2); GFR NON-AFRICAN AMERICAN > 60
--- NOTE | 2019-02-07 08:39 | CP.PCM.PN ---
Subjective - Date & Time of Evaluation Date of Evaluation: 02/07/19 Time of Evaluation: 08:42 - Subjective Subjective: MORE AWAKE AND ALERT VERBALLY RESPONSIVE AFEBRILE VSS NO DIARRHEA TODAY Objective - Vital Signs/Intake and Output Vital Signs (last 24 hours): Temp Pulse Resp BP Pulse Ox 98.1 F 93 H 18 133/69 96 02/07/19 07:55 02/07/19 07:55 02/07/19 07:55 02/07/19 07:55 02/07/19 07:55 - Medications Medications: Current Medications Acetaminophen (Tylenol 325mg Tab) 650 mg PO Q4 PRN PRN Reason: Fever >100.4 F Collagenase (Santyl) 1 applic TOP DAILY LIZETH Last Admin: 02/06/19 16:25 Dose: 1 applic Dimethicone (Proshield Plus Skin Protectant) 1 applic TOP Q8 LIZETH Last Admin: 02/07/19 03:10 Dose: 1 applic Cefepime HCl 1 gm/ Sodium (Chloride) 100 mls @ 100 mls/hr IVPB Q12 LIZETH; Protocol Last Admin: 02/06/19 22:07 Dose: 100 mls/hr Metronidazole (Flagyl 500mg/100ml Ns) 100 mls @ 100 mls/hr IVPB Q8 LIZETH; Prot ocol Last Admin: 02/07/19 01:59 Dose: 100 mls/hr Potassium Chloride/Dextrose/Sod Cl (Potassium Chl 40 Meq In D5-1/2ns) 1,000 mls @ 60 mls/hr IV .[id number] LIZETH Stop: 02/08/19 08:34 Metoprolol Tartrate (Lopressor) 5 mg IVP Q6 LIZETH Last Admin: 02/07/19 03:13 Dose: 5 mg Potassium Chloride (K-Dur 20 Meq Er Tab) 20 meq PO ONCE ONE Stop: 02/07/19 08:35 - Labs Labs: 02/07/19 04:30 02/07/19 04:30 - Constitutional Appears: No Acute Distress - Head Exam Head Exam: ATRAUMATIC, NORMAL INSPECTION, NORMOCEPHALIC - Eye Exam Eye Exam: EOMI, Normal appearance, PERRL Pupil Exam: NORMAL ACCOMODATION, PERRL - ENT Exam ENT Exam: Mucous Membranes Moist, Normal Exam - Neck Exam Neck Exam: Full ROM, Normal Inspection. absent: Lymphadenopathy - Respiratory Exam Respiratory Exam: Clear to Ausculation Bilateral, NORMAL BREATHING PATTERN - Cardiovascular Exam Cardiovascular Exam: REGULAR RHYTHM, +S1, +S2. absent: Murmur - GI/Abdominal Exam GI & Abdominal Exam: Soft, Normal Bowel Sounds. absent: Tenderness - Rectal Exam Rectal Exam: NORMAL INSPECTION - Extremities Exam Extremities Exam: Full ROM, Normal Capillary Refill, Normal Inspection. absent: Joint Swelling, Pedal Edema - Back Exam Back Exam: NORMAL INSPECTION - Neurological Exam Neurological Exam: Alert, Awake, CN II-XII Intact - Psychiatric Exam Psychiatric exam: Normal Affect, Normal Mood - Skin Additional comments: STAGE 4 SACRAL DECUB ULCER--PRESENT ON ADMISSION Assessment and Plan - Assessment and Plan (Free Text) Assessment: SEPSIS WITH DEHYDRATION SACRAL DECUB ULCER HX OF HTN HYPOKALEMIA DIARRHEA-RESOLVED Plan: K+SUPPLEMENTS IV HYDRATION AND ANTIBIOTICS HOLD BP MEDS FOR NOW BEGIN PO FEEDINGS WOUND CARE EVAL IT ANALYST TO SPEAK WITH FAMILY ABOUT DISPOSITION
[2019-02-07] MEDS ORDERED: Potassium Chloride 20 mEq ER Tab PO ONE (09:00)
[2019-02-07] MEDS: Santyl Collagenase OINTMENT TOP SCH (09:15)
[2019-02-07] MEDS: Cefepime 1 GM in Sodium Chloride 0.9% 100 ML IVPB SCH ×2 (10:20→21:35)
[2019-02-07] MEDS: Potassium Chl 40 mEq in D5-1/2 1,000 ML IV SCH (11:09)
--- NOTE | 2019-02-07 11:12 | CP.PCM.PN ---
<Gisell Pierce - Last Filed: 02/07/19 11:13> Subjective - Date & Time of Evaluation Date of Evaluation: 02/07/19 Time of Evaluation: 11:09 - Subjective Subjective: 83yo F history of HTN, Breast CA s/p chemo poor historian. Pt seen at bedside. Pt oriented to person and placed. Pt denies abdominal pain but unable to full provided any other pertinent information. Unable to asses due to pts current mental status Objective - Vital Signs/Intake and Output Vital Signs (last 24 hours): Temp Pulse Resp BP Pulse Ox 98.1 F 93 H 18 133/69 97 02/07/19 07:55 02/07/19 09:17 02/07/19 07:55 02/07/19 09:17 02/07/19 09:59 - Medications Medications: Current Medications Acetaminophen (Tylenol 325mg Tab) 650 mg PO Q4 PRN PRN Reason: Fever >100.4 F Collagenase (Santyl) 1 applic TOP DAILY [facility] Last Admin: 02/07/19 09:15 Dose: 1 applic Dimethicone (Proshield Plus Skin Protectant) 1 applic TOP Q8 [facility] Last Admin: 02/07/19 09:21 Dose: 1 applic Cefepime HCl 1 gm/ Sodium (Chloride) 100 mls @ 100 mls/hr IVPB Q12 [facility]; Protocol Last Admin: 02/07/19 10:20 Dose: 100 mls/hr Metronidazole (Flagyl 500mg/100ml Ns) 100 mls @ 100 mls/hr IVPB Q8 [facility]; Protocol Last Admin: 02/07/19 09:14 Dose: 100 mls/hr Potassium Chloride/Dextrose/Sod Cl (Potassium Chl 40 Meq In D5-1/2ns) 1,000 mls @ 60 mls/hr IV .[id number] [facility] Stop: 02/08/19 08:34 Metoprolol Tartrate (Lopressor) 5 mg IVP Q6 [facility] Last Admin: 02/07/19 09:17 Dose: 5 mg - Labs Labs: 02/07/19 04:30 02/07/19 04:30 - Constitutional Appears: Well, Non-toxic - Head Exam Head Exam: ATRAUMATIC, NORMOCEPHALIC - Eye Exam Eye Exam: Normal appearance - ENT Exam ENT Exam: Mucous Membranes Moist - Cardiovascular Exam Cardiovascular Exam: REGULAR RHYTHM, +S1, +S2 - GI/Abdominal Exam GI & Abdominal Exam: Normal Bowel Sounds Additional comments: abd: soft, most distention to lower abdomen bilateral abdomen with dullness to percussion, upper abdomen soft, typmanic, no tenderness , no hernias, no peritoneal signs Assessment and Plan - Assessment and Plan (Free Text) Assessment: 83yo F with abdominal pain, cholelithiasis, leukocytosis Plan: -CT scan/US reviewed - distended gallbladder, air within gallbladder, questionable fistula between gb and duodenum -pt has no signs of small bowel obstruction -HIDA scan negative -infected decubitis ulcer - wound care evaluation, may need debridement -IV hydration -IV abx -repeat labs in AM, trend LFTs -Right lower extremity swelling - recommend U/S - r/o DVT - transition to regular diet per patients tolerance -continue monitoring clinically. -pt has other possible sources of increase WBC, will continue to follow patient <Jordon Huertas - Last Filed: 02/07/19 13:11> Objective - Vital Signs/Intake and Output Vital Signs (last 24 hours): Temp Pulse Resp BP Pulse Ox 97.7 F 103 H 18 94/55 L 96 02/07/19 12:00 02/07/19 12:00 02/07/19 12:00 02/07/19 12:00 02/07/19 12:00 - Medications Medications: Current Medications Acetaminophen (Tylenol 325mg Tab) 650 mg PO Q4 PRN PRN Reason: Fever >100.4 F Collagenase (Santyl) 1 applic TOP DAILY [facility] Last Admin: 02/07/19 09:15 Dose: 1 applic Dimethicone (Proshield Plus Skin Protectant) 1 applic TOP Q8 [facility] Last Admin: 02/07/19 09:21 Dose: 1 applic Cefepime HCl 1 gm/ Sodium (Chloride) 100 mls @ 100 mls/hr IVPB Q12 [facility]; Protocol Last Admin: 02/07/19 10:20 Dose: 100 mls/hr Metronidazole (Flagyl 500mg/100ml Ns) 100 mls @ 100 mls/hr IVPB Q8 [facility]; Protocol Last Admin: 02/07/19 09:14 Dose: 100 mls/hr Potassium Chloride/Dextrose/Sod Cl (Potassium Chl 40 Meq In D5-1/2ns) 1,000 mls @ 60 mls/hr IV .[id number] [facility] Stop: 02/08/19 08:34 Last Admin: 02/07/19 11:09 Dose: 60 mls/hr Metoprolol Tartrate (Lopressor) 5 mg IVP Q6 [facility] Last Admin: 02/07/19 09:17 Dose: 5 mg - Labs Labs: 02/07/19 04:30 02/07/19 04:30 Assessment and Plan - Assessment and Plan (Free Text) Plan: seen at bedside, resting comfortably. Unreliable historian but denies abdominal pain. HIDA negative for acute cholecystitis, LFTs normal. gen: awake, alert, oriented x 2, NAD heent: nc/at, no scleral icterus no acute respiratory distress abd: soft, ND, NT, -murphys, no peritoneal sings -cont IV ab -diet as tolerated -no evidence of acute cholecystitis -cont DU care -if patient continues to tolerated diet, stable from surgery perspective
--- NOTE | 2019-02-07 11:32 | CP.PCM.PN ---
Subjective - Date & Time of Evaluation Date of Evaluation: 02/07/19 Time of Evaluation: 10:00 - Subjective Subjective: seen on rounds chart reviewed Objective - Vital Signs/Intake and Output Vital Signs (last 24 hours): Temp Pulse Resp BP Pulse Ox 98.1 F 93 H 18 133/69 97 02/07/19 07:55 02/07/19 09:17 02/07/19 07:55 02/07/19 09:17 02/07/19 09:59 - Medications Medications: Current Medications Acetaminophen (Tylenol 325mg Tab) 650 mg PO Q4 PRN PRN Reason: Fever >100.4 F Collagenase (Santyl) 1 applic TOP DAILY [facility] Last Admin: 02/07/19 09:15 Dose: 1 applic Dimethicone (Proshield Plus Skin Protectant) 1 applic TOP Q8 [facility] Last Admin: 02/07/19 09:21 Dose: 1 applic Cefepime HCl 1 gm/ Sodium (Chloride) 100 mls @ 100 mls/hr IVPB Q12 [facility]; Protocol Last Admin: 02/07/19 10:20 Dose: 100 mls/hr Metronidazole (Flagyl 500mg/100ml Ns) 100 mls @ 100 mls/hr IVPB Q8 [facility]; Protocol Last Admin: 02/07/19 09:14 Dose: 100 mls/hr Potassium Chloride/Dextrose/Sod Cl (Potassium Chl 40 Meq In D5-1/2ns) 1,000 mls @ 60 mls/hr IV .[id number] [facility] Stop: 02/08/19 08:34 Last Admin: 02/07/19 11:09 Dose: 60 mls/hr Metoprolol Tartrate (Lopressor) 5 mg IVP Q6 [facility] Last Admin: 02/07/19 09:17 Dose: 5 mg - Labs Labs: 02/07/19 04:30 02/07/19 04:30 - Constitutional Appears: Non-toxic, Chronically Ill - Head Exam Head Exam: NORMOCEPHALIC - Eye Exam Eye Exam: absent: Scleral icterus - ENT Exam ENT Exam: Mucous Membranes Dry - Neck Exam Neck Exam: absent: Lymphadenopathy - Respiratory Exam Respiratory Exam: Decreased Breath Sounds - Cardiovascular Exam Cardiovascular Exam: REGULAR RHYTHM - GI/Abdominal Exam GI & Abdominal Exam: Distended, Soft - Rectal Exam Rectal Exam: Deferred - Exam Exam: NORMAL INSPECTION - Extremities Exam Extremities Exam: Pedal Edema - Back Exam Back Exam: absent: CVA tenderness (R), NORMAL INSPECTION - Neurological Exam Neurological Exam: Alert, Awake Assessment and Plan (1) Sepsis Status: Acute (2) UTI (urinary tract infection) Status: Acute (3) Altered mental state Status: Acute (4) Mass of brain Status: Acute (5) Dehydration Status: Resolved - Assessment and Plan (Free Text) Assessment: await cultures cont IV rx as ordered wound care eval
[2019-02-08] MEDS: metroNIDAZOLE 500mg/100ml NS 100 ML IVPB SCH ×3 (00:43→16:43)
[2019-02-08] MEDS: Proshield Plus GEL TOP SCH ×3 (00:43→16:44)
[2019-02-08] MEDS: Potassium Chl 40 mEq in D5-1/2 1,000 ML IV SCH ×2 (04:37→17:05)
[2019-02-08] MEDS: Metoprolol 1 mg/ml Inj IVP SCH (04:38)
[2019-02-08 05:58] LABS: BLOOD UREA NITROGEN 23 mg/dl (7-17); CALCIUM 8.5 mg/dL (8.4-10.2); GFR NON-AFRICAN AMERICAN > 60
--- NOTE | 2019-02-08 08:27 | CP.PCM.PN ---
<Ankit Rangel - Last Filed: 02/08/19 08:24> Subjective - Date & Time of Evaluation Date of Evaluation: 02/08/19 Time of Evaluation: 08:25 - Subjective Subjective: General Surgery Note for Dr. Arreola Patient seen at bedside. Patient denies abdominal pain. She has no complaints. patient oriented to person and place. ROS limited to due mental status. Objective - Vital Signs/Intake and Output Vital Signs (last 24 hours): Temp Pulse Resp BP Pulse Ox 98.0 F 93 H 20 148/71 95 02/08/19 07:54 02/08/19 07:54 02/08/19 07:54 02/08/19 07:54 02/08/19 07:54 Intake and Output: 02/08/19 02/08/19 06:59 18:59 Intake Total 980 Output Total 400 Balance 580 - Medications Medications: Current Medications Acetaminophen (Tylenol 325mg Tab) 650 mg PO Q4 PRN PRN Reason: Fever >100.4 F Collagenase (Santyl) 1 applic TOP DAILY [facility] Last Admin: 02/07/19 09:15 Dose: 1 applic Dimethicone (Proshield Plus Skin Protectant) 1 applic TOP Q8 [facility] Last Admin: 02/08/19 00:43 Dose: 1 applic Cefepime HCl 1 gm/ Sodium (Chloride) 100 mls @ 100 mls/hr IVPB Q12 [facility]; P rotocol Last Admin: 02/07/19 21:35 Dose: 100 mls/hr Metronidazole (Flagyl 500mg/100ml Ns) 100 mls @ 100 mls/hr IVPB Q8 [facility]; Protocol Last Admin: 02/08/19 00:43 Dose: 100 mls/hr Potassium Chloride/Dextrose/Sod Cl (Potassium Chl 40 Meq In D5-1/2ns) 1,000 mls @ 60 mls/hr IV .[id number] [facility] Stop: 02/08/19 08:34 Last Admin: 02/08/19 04:37 Dose: 60 mls/hr Metoprolol Tartrate (Lopressor) 5 mg IVP Q6 [facility] Last Admin: 02/08/19 04:38 Dose: 5 mg - Labs Labs: 02/07/19 04:30 02/08/19 05:05 - Additional Findings Additional findings: - Constitutional Appears: Well, Non-toxic - Head Exam Head Exam: ATRAUMATIC, NORMOCEPHALIC - Eye Exam Eye Exam: Normal appearance - ENT Exam ENT Exam: Mucous Membranes Moist - Cardiovascular Exam Cardiovascular Exam: REGULAR RHYTHM, +S1, +S2 - GI/Abdominal Exam GI & Abdominal Exam: Normal Bowel Sounds Additional comments: soft, no tenderness , no hernias, no peritoneal signs Assessment and Plan - Assessment and Plan (Free Text) Assessment: 83 F with abdominal pain, cholelithiasis, leukocytosis -CT scan/US reviewed - distended gallbladder, air within gallbladder, questionable fistula between gb and duodenum -HIDA scan negative Plan: -Patient asymptomatic -Diet as tolerated -cont IV abx -no evidence of acute cholecystitis -no surgical intervention needed at this time -Medical management as per primary -Further recommendations as per Dr. Maxwell Rangel PGY2 <Kurt Arreola - Last Filed: 02/08/19 12:43> Subjective - Date & Time of Evaluation Time of Evaluation: 11:00 - Subjective Subjective: Patient was seen and examined at the bedside. Agree with resident's note above. Objective - Vital Signs/Intake and Output Vital Signs (last 24 hours): Temp Pulse Resp BP Pulse Ox 97.7 F 111 H 20 123/68 96 02/08/19 11:56 02/08/19 11:56 02/08/19 11:56 02/08/19 11:56 02/08/19 11:56 Intake and Output: 02/08/19 02/08/19 06:59 18:59 Intake Total 980 Output Total 400 Balance 580 - Medications Medications: Current Medications Acetaminophen (Tylenol 325mg Tab) 650 mg PO Q4 PRN PRN Reason: Fever >100.4 F Ascorbic Acid (Vitamin C 500 Mg Tab) 1,000 mg PO DAILY [facility] Collagenase (Santyl) 1 applic TOP DAILY [facility] Last Admin: 02/08/19 09:42 Dose: 1 applic Cyanocobalamin (Vitamin B12 1000 Mcg Tab) 1,000 mcg PO DAILY [facility] Last Admin: 02/08/19 11:03 Dose: 1,000 mcg Dimethicone (Proshield Plus Skin Protectant) 1 applic TOP Q8 [facility] Last Admin: 02/08/19 09:42 Dose: 1 applic Enoxaparin Sodium (Lovenox) 40 mg SC DAILY [facility]; Protocol Last Admin: 02/08/19 11:03 Dose: 40 mg Home Med (Letrozole [Femara]) 2.5 mg PO DAILY [facility] Cefepime HCl 1 gm/ Sodium (Chloride) 100 mls @ 100 mls/hr IVPB Q12 [facility]; Protocol Last Admin: 02/08/19 09:43 Dose: 100 mls/hr Metronidazole (Flagyl 500mg/100ml Ns) 100 mls @ 100 mls/hr IVPB Q8 [facility]; Protocol Last Admin: 02/08/19 10:03 Dose: 100 mls/hr Metoprolol Tartrate (Lopressor) 25 mg PO Q12 [facility] Last Admin: 02/08/19 10:16 Dose: 25 mg - Labs Labs: 02/07/19 04:30 02/08/19 05:05 - Skin Additional comments: sacral decibituis ulcer unstagable, with necrotic eschar 15x10 cm Assessment and Plan - Assessment and Plan (Free Text) Assessment: - Patient will require debridment of the sacral decubitus ulcer - Cardiac clearance for surgery - NPO after midnight for possible OR tomorrow if cleared by cardiology - Will follow
--- NOTE | 2019-02-08 08:42 | CP.PCM.PN ---
Subjective - Date & Time of Evaluation Date of Evaluation: 02/08/19 Time of Evaluation: 08:44 - Subjective Subjective: MORE ALERT AND AWAKE CLINICALLY IMPROVING AFEBRILE VSS Objective - Vital Signs/Intake and Output Vital Signs (last 24 hours): Temp Pulse Resp BP Pulse Ox 98.0 F 93 H 20 148/71 95 02/08/19 07:54 02/08/19 07:54 02/08/19 07:54 02/08/19 07:54 02/08/19 07:54 Intake and Output: 02/08/19 02/08/19 06:59 18:59 Intake Total 980 Output Total 400 Balance 580 - Medications Medications: Current Medications Acetaminophen (Tylenol 325mg Tab) 650 mg PO Q4 PRN PRN Reason: Fever >100.4 F Collagenase (Santyl) 1 applic TOP DAILY [facility] Last Admin: 02/07/19 09:15 Dose: 1 applic Dimethicone (Proshield Plus Skin Protectant) 1 applic TOP Q8 [facility] Last Admin: 02/08/19 00:43 Dose: 1 applic Cefepime HCl 1 gm/ Sodium (Chloride) 100 mls @ 100 mls/hr IVPB Q12 [facility]; Protocol Last Admin: 02/07/19 21:35 Dose: 100 mls/hr Metronidazole (Flagyl 500mg/100ml Ns) 100 mls @ 100 mls/hr IVPB Q8 [facility]; Protocol Last Admin: 02/08/19 00:43 Dose: 100 mls/hr Metoprolol Tartrate (Lopressor) 5 mg IVP Q6 [facility] Last Admin: 02/08/19 04:38 Dose: 5 mg - Labs Labs: 02/07/19 04:30 02/08/19 05:05 - Constitutional Appears: No Acute Distress - Head Exam Head Exam: ATRAUMATIC, NORMAL INSPECTION, NORMOCEPHALIC - Eye Exam Eye Exam: EOMI, Normal appearance, PERRL Pupil Exam: NORMAL ACCOMODATION, PERRL - ENT Exam ENT Exam: Mucous Membranes Moist, Normal Exam - Neck Exam Neck Exam: Full ROM, Normal Inspection. absent: Lymphadenopathy - Respiratory Exam Respiratory Exam: Clear to Ausculation Bilateral, NORMAL BREATHING PATTERN - Cardiovascular Exam Cardiovascular Exam: REGULAR RHYTHM, +S1, +S2. absent: Murmur - GI/Abdominal Exam GI & Abdominal Exam: Soft, Normal Bowel Sounds. absent: Tenderness - Rectal Exam Rectal Exam: NORMAL INSPECTION - Extremities Exam Extremities Exam: Full ROM, Normal Capillary Refill, Normal Inspection. 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
[2019-02-08] MEDS: Santyl Collagenase OINTMENT TOP SCH (09:42)
[2019-02-08] MEDS: Cefepime 1 GM in Sodium Chloride 0.9% 100 ML IVPB SCH ×2 (09:43→21:28)
[2019-02-08] MEDS ORDERED: Enoxaparin 40 mg Syringe SC SCH (09:45)
--- NOTE | 2019-02-08 17:06 | CP.PCM.PN ---
Subjective - Date & Time of Evaluation Date of Evaluation: 02/08/19 Time of Evaluation: 09:00 - Subjective Subjective: improving less lethargic no fever weak nad Objective - Vital Signs/Intake and Output Vital Signs (last 24 hours): Temp Pulse Resp BP Pulse Ox 98.0 F 102 H 18 133/62 95 02/08/19 15:56 02/08/19 15:56 02/08/19 15:56 02/08/19 15:56 02/08/19 15:56 Intake and Output: 02/08/19 02/08/19 06:59 18:59 Intake Total 980 Output Total 400 Balance 580 - Medications Medications: Current Medications Acetaminophen (Tylenol 325mg Tab) 650 mg PO Q4 PRN PRN Reason: Fever >100.4 F Ascorbic Acid (Vitamin C 500 Mg Tab) 1,000 mg PO DAILY [facility] Collagenase (Santyl) 1 applic TOP DAILY [facility] Last Admin: 02/08/19 09:42 Dose: 1 applic Cyanocobalamin (Vitamin B12 1000 Mcg Tab) 1,000 mcg PO DAILY [facility] Last Admin: 02/08/19 11:03 Dose: 1,000 mcg Dimethicone (Proshield Plus Skin Protectant) 1 applic TOP Q8 [facility] Last Admin: 02/08/19 16:44 Dose: 1 applic Home Med (Letrozole [Femara]) 2.5 mg PO DAILY [facility] Cefepime HCl 1 gm/ Sodium (Chloride) 100 mls @ 100 mls/hr IVPB Q12 [facility]; Protocol Last Admin: 02/08/19 09:43 Dose: 100 mls/hr Metronidazole (Flagyl 500mg/100ml Ns) 100 mls @ 100 mls/hr IVPB Q8 [facility]; Protocol Last Admin: 02/08/19 16:43 Dose: 100 mls/hr Potassium Chloride/Dextrose/Sod Cl (Potassium Chl 40 Meq In D5-1/2ns) 1,000 mls @ 60 mls/hr IV .[id number] [facility] Stop: 02/09/19 16:48 Metoprolol Tartrate (Lopressor) 25 mg PO Q12 [facility] Last Admin: 02/08/19 10:16 Dose: 25 mg - Labs Labs: 02/07/19 04:30 02/08/19 05:05 - Constitutional Appears: Non-toxic, No Acute Distress, Chronically Ill - Head Exam Head Exam: ATRAUMATIC, NORMAL INSPECTION, NORMOCEPHALIC - Eye Exam Eye Exam: EOMI, Normal appearance, PERRL Pupil Exam: NORMAL ACCOMODATION, PERRL - ENT Exam ENT Exam: Mucous Membranes Moist, Normal Exam - Neck Exam Neck Exam: Full ROM, Normal Inspection. absent: Lymphadenopathy - Respiratory Exam Respiratory Exam: Clear to Ausculation Bilateral, NORMAL BREATHING PATTERN - Cardiovascular Exam Cardiovascular Exam: REGULAR RHYTHM, +S1, +S2. absent: Murmur - GI/Abdominal Exam GI & Abdominal Exam: Distended, Soft. absent: Tenderness - Rectal Exam Rectal Exam: Deferred - Exam Exam: NORMAL INSPECTION - Extremities Exam Extremities Exam: Full ROM, Normal Capillary Refill, Normal Inspection. absent: Joint Swelling, Pedal Edema - Back Exam Back Exam: NORMAL INSPECTION Additional comments: + sacral stage IV - Neurological Exam Neurological Exam: Alert, Awake, CN II-XII Intact. absent: Normal Gait, Oriented x3, Reflexes Normal - Psychiatric Exam Psychiatric exam: Normal Affect, Normal Mood - Skin Skin Exam: Dry. absent: Intact Assessment and Plan (1) Sepsis Status: Acute (2) UTI (urinary tract infection) Status: Acute (3) Altered mental state Status: Acute (4) Mass of brain Status: Acute (5) Dehydration Status: Resolved - Assessment and Plan (Free Text) Assessment: cultures neg thus far clinically improved will need debridement of sacrum cont wound care and IV antibiotics - consider rx for 6 weeks ( Osteomyelitis) may benefit from VICKIE
--- NOTE | 2019-02-08 18:02 | CP.PCM.CON ---
History of Present Illness - History of Present Illness History of Present Illness: Resident Consult Note for Dr. Young Patient is an 83 year old female with past medical history of LBBB, dementia, breast cancer s/p chemo, brain mass, hypertension admitted for abdominal pain and diarrhea also found to have sepsis from unstageable sacral decubitus ulcer. Cardiology was consulted for preoperative risk stratification prior to surgical debridement of sacral ulcer. Patient is a poor historian, however denies chest pain, shortness of breath, or any symptomatic complaints. PMH: as above PSH: breast mass excision FHx: Denies SHx: Denies tobacco use, ETOH, illicit drugs. Lives at home with Allergies: NKDA Review of Systems - Review of Systems All systems: reviewed and no additional remarkable complaints except (as stated in HPI) Past Patient History - Past Medical History & Family History Past Medical History?: Yes - Past Social History Smoking Status: Never Smoked - CARDIAC Hx Hypertension: Yes - PULMONARY Hx Respiratory Disorders: No - NEUROLOGICAL Hx Dementia: Yes - HEENT Hx HEENT Problems: No - RENAL Hx Chronic Kidney Disease: No - ENDOCRINE/METABOLIC Hx Endocrine Disorders: No - HEMATOLOGICAL/ONCOLOGICAL Hx Human Immunodeficiency Virus (HIV): No - INTEGUMENTARY Hx Dermatological Problems: No - MUSCULOSKELETAL/RHEUMATOLOGICAL Hx Musculoskeletal Disorders: Yes Hx Falls: Yes - GASTROINTESTINAL Hx Gastrointestinal Disorders: No - GENITOURINARY/GYNECOLOGICAL Hx Genitourinary Disorders: No Other/Comment: BREAST CA W/ CHEMO - PSYCHIATRIC Hx Psychophysiologic Disorder: No Hx Substance Use: No - SURGICAL HISTORY Hx Surgeries: Yes Other/Comment: 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 - ANESTHESIA Hx Anesthesia: Yes Hx Anesthesia Reactions: No Hx Malignant Hyperthermia: No Meds Allergies/Adverse Reactions: Allergies Allergy/AdvReac Type Severity Reaction Status Date / Time No Known Allergies Allergy Verified 12/17/18 18:41 - Medications Medications: Current Medications Acetaminophen (Tylenol 325mg Tab) 650 mg PO Q4 PRN PRN Reason: Fever >100.4 F Ascorbic Acid (Vitamin C 500 Mg Tab) 1,000 mg PO DAILY [facility] Last Admin: 02/08/19 17:04 Dose: 1,000 mg Collagenase (Santyl) 1 applic TOP DAILY [facility] Last Admin: 02/08/19 09:42 Dose: 1 applic Cyanocobalamin (Vitamin B12 1000 Mcg Tab) 1,000 mcg PO DAILY [facility] Last Admin: 02/08/19 11:03 Dose: 1,000 mcg Dimethicone (Proshield Plus Skin Protectant) 1 applic TOP Q8 [facility] Last Admin: 02/08/19 16:44 Dose: 1 applic Home Med (Letrozole [Femara]) 2.5 mg PO DAILY [facility] Cefepime HCl 1 gm/ Sodium (Chloride) 100 mls @ 100 mls/hr IVPB Q12 [facility]; Protocol Last Admin: 02/08/19 09:43 Dose: 100 mls/hr Metronidazole (Flagyl 500mg/100ml Ns) 100 mls @ 100 mls/hr IVPB Q8 [facility]; Protocol Last Admin: 02/08/19 16:43 Dose: 100 mls/hr Potassium Chloride/Dextrose/Sod Cl (Potassium Chl 40 Meq In D5-1/2ns) 1,000 mls @ 60 mls/hr IV .[id number] [facility] Stop: 02/09/19 16:48 Last Admin: 02/08/19 17:05 Dose: 60 mls/hr Metoprolol Tartrate (Lopressor) 25 mg PO Q12 [facility] Last Admin: 02/08/19 10:16 Dose: 25 mg Physical Exam - Additional Findings Additional findings: - Constitutional Appears: Non-toxic, No Acute Distress - Head Exam Head Exam: ATRAUMATIC, NORMOCEPHALIC - Eye Exam Eye Exam: EOMI, Normal Appearance - ENT Exam ENT Exam: Mucous Membranes Moist - Respiratory Exam Respiratory Exam: Clear to Auscultation Bilateral, NORMAL BREATHING PATTERN - Cardiovascular Exam Cardiovascular Exam: REGULAR RHYTHM, RRR, +S1, +S2, Tachycardia. absent: Murmur - Extremities Exam Extremities exam: Positive for: normal inspection, pedal pulses present. Negative for: pedal edema - Neurological Exam Neurological exam: Alert, Awake, CN II-XII Intact - Psychiatric Exam Psychiatric exam: Normal Affect, Normal Mood - Skin Skin Exam: Dry, Normal Color, Warm Results - Vital Signs Recent Vital Signs: Last Vital Signs Temp 98.0 F 02/08/19 15:56 Pulse 102 H 02/08/19 15:56 Resp 18 02/08/19 15:56 BP 133/62 02/08/19 15:56 Pulse Ox 95 02/08/19 15:56 - Labs Result Diagrams: 02/07/19 04:30 02/08/19 05:05 Labs: Laboratory Results - last 24 hr 02/07/19 02/08/19 20:47 05:05 Sodium 143 Potassium 3.2 L Chloride 109 H Carbon Dioxide 29 Anion Gap 8 L BUN 23 H Creatinine 0.4 L Est GFR ( Amer) > 60 Est GFR (Non-Af Amer) > 60 Random Glucose 113 H Calcium 8.5 C. difficile Ag & Toxin Negative Assessment & Plan - Assessment and Plan (Free Text) Plan: Preoperative risk stratification - patient baseline functional status is low, tachycardic at rest - ECHO from November 2018 shows LVEF 55-60%, poor ECHO window, abnormal septum motion due to LBBB - followup repeat ECHO and if EF is within normal limits can proceed with intermediate risk for perioperative cardiac event
[2019-02-09] MEDS: Proshield Plus GEL TOP SCH ×3 (00:10→17:28)
[2019-02-09] MEDS: metroNIDAZOLE 500mg/100ml NS 100 ML IVPB SCH ×3 (00:11→17:27)
[2019-02-09 06:14] LABS: BASO % 0.3 % (0.0-2.0); EOS # 0.4 K/uL (0.0-0.7); EOS % 4.5 % (0.0-4.0); HEMOGLOBIN 11.2 g/dL (12.0-16.0); LYMPH # 1.4 K/uL (1.0-4.3); MEAN CELL VOLUME 88.2 fl (81.0-99.0); MEAN CORPUSCULAR HEMOGLOBIN 28.8 pg (27.0-31.0); MEAN CORPUSCULAR HGB CONC 32.6 g/dL (33.0-37.0); MEAN PLATELET VOLUME 7.7 fl (7.2-11.7); MONO # 0.8 K/uL (0.0-0.8); MONO % 8.4 % (0.0-10.0); NEUT # 6.5 K/uL (1.8-7.0); NEUT % 71.8 % (50.0-75.0); NRBC % 0.1 % (0.0-0.0); RBC 3.89 Mil/uL (3.80-5.20); RED CELL DISTRIBUTION WIDTH 15.1 % (11.5-14.5); WHITE BLOOD COUNT 9.1 K/uL (4.8-10.8)
[2019-02-09 06:25] LABS: ALB/GLOB RATIO 0.9 (1.0-2.1); ALBUMIN 2.5 g/dL (3.5-5.0); ALT/SGPT 38 U/L (9-52); AST/SGOT 40 U/L (14-36); BLOOD UREA NITROGEN 19 mg/dl (7-17); CALCIUM 8.4 mg/dL (8.4-10.2); GFR NON-AFRICAN AMERICAN > 60; INR 1.3; PROTHROMBIN TIME 14.7 Seconds (9.8-13.1)
[2019-02-09 06:27] LABS: PARTIAL THROMBOPLASTIN TIME 29.3 Seconds (25.6-37.1)
[2019-02-09] MEDS ORDERED: Potassium Chloride 20 mEq 100 ML IVPB ONE (07:44)
--- NOTE | 2019-02-09 08:21 | PCM.PCON ---
History of Present Illness - History of Present Illness History of Present Illness: Patient is a 83 year old female who presented to the ED on 02/06/19 for abdominal pain, diarrhea, and weakness for the past several days. Patient is confused and can not give a proper history relating to her current condition. She had a prior admission for a fall in November and went to subacute rehab. Admitted for UTI and Sepsis. PMH:HTN, Breast Ca s/p chemo, Dementia, Brain mass Soc: Denies smoking, etoh, or drug abuse Fam: Unknown 02/06 Gall Bladder US: cholelithiasis with mildly enlarged gall bladder 02/06 CXR: No acute cardiopulmonary disease Review of Systems - Review of Systems Systems not reviewed;Unavailable: Altered Mental Status Physical Exam - Constitutional Appears: No Acute Distress, Chronically Ill - Head Exam Head Exam: ATRAUMATIC, NORMAL INSPECTION, NORMOCEPHALIC - Eye Exam Eye Exam: Normal appearance, PERRL - ENT Exam ENT Exam: Mucous Membranes Moist - Respiratory Exam Respiratory Exam: Decreased Breath Sounds - Cardiovascular Exam Cardiovascular Exam: Tachycardia - GI/Abdominal Exam GI & Abdominal Exam: Normal Bowel Sounds - Rectal Exam Additional comments: incontinent - Exam Additional comments: Has spain catheter draining clear yellow urine - Extremities Exam Extremities exam: Positive for: pedal pulses present - Back Exam Additional comments: sacral wound - Neurological Exam Neurological exam: Alert Additional comments: oriented to person and place - Psychiatric Exam Psychiatric exam: Anxious - Skin Skin Exam: Dry, Pallor, Warm Additional comments: not intact Palliative Care Assessment - Modified MRC Dyspnea Scale Modified MRC Dyspnea Scale: Not troubled by breathlessness except on strenous exercise Grade: 1 - Pain Scale Pain Score: 0 Pain Scale Used: Numeric - Yong Scale Sensory Perception: No Impairment Moisture: Occasionally Moist Activity: Chairfast Mobility: Very Limited Nutrition: Adequate Friction & Shear: Potential Problem Total Score - Skin Risk Assessment: 16 - Psychosocial Distress Patient screened for psychosocial distress: Yes Palliative Care - Goals Goal(s) of care: Goals of Care: discussed with patient's Jossue Heart. He states that he needs help taking care of his . He states that although he is the primary decision maker, he is not able to completely understand his 's condition. He says that he is overwhelmed and feel like the burden of her care is being placed on him. He would like her to continue to receive all medically necessary care at this time. They do not desire any extraordinary measures and will document those wishes on AD on Tuesday. He expressed that he would like his daughters to take more of a role in making decisions and helping to care for his . Patient currently does not have any advanced directive or POLST, Jossue and daughter Suzie state that they would like to complete one and also work on acquiring POA. Patient's daughter says they are meeting with an collision technician on Tuesday to begin the process. Code Status: Full Code at this time Treatment Goal(s): Alleviate symptoms, Improve ADLs, Improve quality of life Assessment & Plan - Assessment and Plan (Free Text) Assessment: Full Code, There is no advanced directive in the chart Palliative Performance Scale 30% I reviewed Medical records, diagnostic tests, examined and interviewed the patient in bed. Patient Jossue and daughter Suzie interviewed via telephone Impression Confused Unstageable Sacral wound Incontinence Decrease Mobility Needs continued Goals of Care Suggestion Reorient and redirect as needed Continue Wound Care Reposition Q2h Will Continue Goals of Care discussion Palliative Care will remain on board as needed Time spent with patient 55 minutes
--- NOTE | 2019-02-09 08:44 | CP.PCM.PN ---
Subjective - Date & Time of Evaluation Date of Evaluation: 02/09/19 Time of Evaluation: 08:00 - Subjective Subjective: Juan A Davey, PGY-[address] Young Pt was seen and examined this AM at bedside. Pt states that she has no acute complaints at this time. Pt will be going for echo today and OR pending echo results. Objective - Vital Signs/Intake and Output Vital Signs (last 24 hours): Temp Pulse Resp BP Pulse Ox 98.3 F 101 H 20 126/72 96 02/09/19 07:59 02/09/19 07:59 02/09/19 07:59 02/09/19 07:59 02/09/19 07:59 Intake and Output: 02/09/19 02/09/19 06:59 18:59 Intake Total 2500 Output Total 1375 Balance 1125 - Medications Medications: Current Medications Acetaminophen (Tylenol 325mg Tab) 650 mg PO Q4 PRN PRN Reason: Fever >100.4 F Ascorbic Acid (Vitamin C 500 Mg Tab) 1,000 mg PO DAILY [facility] Last Admin: 02/08/19 17:04 Dose: 1,000 mg Collagenase (Santyl) 1 applic TOP DAILY [facility] Last Admin: 02/08/19 09:42 Dose: 1 applic Cyanocobalamin (Vitamin B12 1000 Mcg Tab) 1,000 mcg PO DAILY [facility] Last Admin: 02/08/19 11:03 Dose: 1,000 mcg Dimethicone (Proshield Plus Skin Protectant) 1 applic TOP Q8 [facility] Last Admin: 02/09/19 00:10 Dose: 1 applic Home Med (Letrozole [Femara]) 2.5 mg PO DAILY [facility] Cefepime HCl 1 gm/ Sodium (Chloride) 100 mls @ 100 mls/hr IVPB Q12 [facility]; Protocol Last Admin: 02/08/19 21:28 Dose: 100 mls/hr Metronidazole (Flagyl 500mg/100ml Ns) 100 mls @ 100 mls/hr IVPB Q8 [facility]; Protocol Last Admin: 02/09/19 00:11 Dose: 100 mls/hr Potassium Chloride/Dextrose/Sod Cl (Potassium Chl 40 Meq In D5-1/2ns) 1,000 mls @ 60 mls/hr IV .[id number] [facility] Stop: 02/09/19 16:48 Last Admin: 02/08/19 17:05 Dose: 60 mls/hr Metoprolol Tartrate (Lopressor) 25 mg PO Q12 [facility] Last Admin: 02/08/19 21:32 Dose: 25 mg - Labs Labs: 02/09/19 04:45 02/09/19 04:45 PT 14.7 Seconds (9.8-13.1) H 02/09/19 04:45 INR 1.3 02/09/19 04:45 APTT 29.3 Seconds (25.6-37.1) 02/09/19 04:45 - Constitutional Appears: Non-toxic, No Acute Distress - Head Exam Head Exam: ATRAUMATIC, NORMAL INSPECTION, NORMOCEPHALIC - Eye Exam Eye Exam: EOMI, Normal appearance, PERRL - Respiratory Exam Respiratory Exam: Clear to Ausculation Bilateral, NORMAL BREATHING PATTERN. absent: Rales, Rhonchi, Wheezes - Cardiovascular Exam Cardiovascular Exam: RRR, +S1, +S2. absent: Gallop, Rubs - GI/Abdominal Exam GI & Abdominal Exam: Soft, Normal Bowel Sounds. absent: Firm, Guarding, Rigid, Tenderness - Back Exam Back Exam: absent: CVA tenderness (L), CVA tenderness (R) Additional comments: Unstageable sacral decub ulcer - Neurological Exam Neurological Exam: Alert, Awake, Oriented x3 - Psychiatric Exam Psychiatric exam: Normal Affect, Normal Mood - Skin Skin Exam: Dry, Normal Color, Warm Assessment and Plan - Assessment and Plan (Free Text) Assessment: Pt is an 83 yo F who presented for abd pain, diarrhea and has noted unstageable sacral decub ulcer. Plan: Cardiac risk stratification for surgery - Echo read per Dr. Young pt has intermediate cardiac risk for surgery.
[2019-02-09] MEDS: Cefepime 1 GM in Sodium Chloride 0.9% 100 ML IVPB SCH ×2 (10:31→21:18)
[2019-02-09] MEDS: Santyl Collagenase OINTMENT TOP SCH (10:34)
--- NOTE | 2019-02-09 10:51 | CP.PCM.PCO ---
Assessment & Plan - Assessment and Plan (Free Text) Assessment: pt. s/p Echo; reviewed by , pt. cleared for OR sx debridement by
--- NOTE | 2019-02-09 11:24 | CP.PCM.PN ---
<Viridiana Echols - Last Filed: 02/09/19 13:21> Subjective - Date & Time of Evaluation Date of Evaluation: 02/09/19 Time of Evaluation: 11:24 - Subjective Subjective: Patient seen and examined at bedside. Reports generalized body weakness. Denies angina, dypsnea, nausea, vomiting or abdominal pain. Patient seems to be confu sed on interview. Objective - Vital Signs/Intake and Output Vital Signs (last 24 hours): Temp Pulse Resp BP Pulse Ox 98.3 F 101 H 20 126/72 96 02/09/19 07:59 02/09/19 10:33 02/09/19 07:59 02/09/19 10:33 02/09/19 07:59 Intake and Output: 02/09/19 02/09/19 06:59 18:59 Intake Total 2500 Output Total 1375 Balance 1125 - Medications Medications: Current Medications Acetaminophen (Tylenol 325mg Tab) 650 mg PO Q4 PRN PRN Reason: Fever >100.4 F Ascorbic Acid (Vitamin C 500 Mg Tab) 1,000 mg PO DAILY [facility] Last Admin: 02/09/19 10:35 Dose: 1,000 mg Collagenase (Santyl) 1 applic TOP DAILY [facility] Last Admin: 02/09/19 10:34 Dose: 1 applic Cyanocobalamin (Vitamin B12 1000 Mcg Tab) 1,000 mcg PO DAILY [facility] Last Admin: 02/09/19 10:35 Dose: 1,000 mcg Dimethicone (Proshield Plus Skin Protectant) 1 applic TOP Q8 [facility] Last Admin: 02/09/19 10:34 Dose: 1 applic Home Med (Letrozole [Femara]) 2.5 mg PO DAILY [facility] Cefepime HCl 1 gm/ Sodium (Chloride) 100 mls @ 100 mls/hr IVPB Q12 [facility]; Protocol Last Admin: 02/09/19 10:31 Dose: 100 mls/hr Metronidazole (Flagyl 500mg/100ml Ns) 100 mls @ 100 mls/hr IVPB Q8 [facility]; Protocol Last Admin: 02/09/19 10:32 Dose: 100 mls/hr Potassium Chloride/Dextrose/Sod Cl (Potassium Chl 40 Meq In D5-1/2ns) 1,000 mls @ 60 mls/hr IV .[id number] [facility] Stop: 02/09/19 16:48 Last Admin: 02/08/19 17:05 Dose: 60 mls/hr Metoprolol Tartrate (Lopressor) 25 mg PO Q12 [facility] Last Admin: 02/09/19 10:33 Dose: 25 mg - Labs Labs: 02/09/19 04:45 02/09/19 04:45 PT 14.7 Seconds (9.8-13.1) H 02/09/19 04:45 INR 1.3 02/09/19 04:45 APTT 29.3 Seconds (25.6-37.1) 02/09/19 04:45 - Constitutional Appears: Chronically Ill - Eye Exam Eye Exam: Normal appearance - ENT Exam ENT Exam: Mucous Membranes Moist - Respiratory Exam Respiratory Exam: Clear to Ausculation Bilateral, NORMAL BREATHING PATTERN. absent: Accessory Muscle Use, Chest Wall Tenderness, Prolonged Expiratory Phase, Rales, Rhonchi, Wheezes, Respiratory Distress, Stridor - Cardiovascular Exam Cardiovascular Exam: REGULAR RHYTHM, +S1, +S2 - GI/Abdominal Exam GI & Abdominal Exam: Distended, Soft, Normal Bowel Sounds. absent: Guarding, Rigid, Tenderness, Rebound - Extremities Exam Extremities Exam: Normal Inspection, Pedal Edema. absent: Calf Tenderness, Tenderness - Back Exam Additional comments: Sacral ulcer bandaged at this time - Neurological Exam Neurological Exam: Alert, Awake Additional comments: Right and left lower extremity weakness bilaterally. Unable to lift both legs when prompted. 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 Plan: Sepsis with dehydration - probably secondary to stage 4 decubitus ulcer - hemodynamically stable - Abx: Cefepime and Flagyl- day 4 - Surgical consult- Plan for debridement - IVF hydration Sacral decubitus ulcer - Stage 4 decubitus ulcer - Cardiology consult appreciated for clearance for debridement - intermediate cardiac risk for surgery - Surgical consult- Plan for debridement - wound care HX OF BRAIN MASS - follows out patient - Daughter does not want aggressive intervention at this time. HTN - Chronic - stable - c/w medications Hypokalemia --improved -- today 3.5 -- repleted through IV fluids Dvt prophylaxis - SCD - plan for debridement of sacrum <Felipa Kay - Last Filed: 02/09/19 15:59> Objective - Vital Signs/Intake and Output Vital Signs (last 24 hours): Temp Pulse Resp BP Pulse Ox 97.8 F 92 H 18 138/73 94 L 02/09/19 13:55 02/09/19 14:10 02/09/19 14:10 02/09/19 14:10 02/09/19 14:10 Intake and Output: 02/09/19 02/09/19 06:59 18:59 Intake Total 2500 150 Output Total 1375 105 Balance 1125 45 - Medications Medications: Current Medications Acetaminophen (Tylenol 325mg Tab) 650 mg PO Q4 PRN PRN Reason: Fever >100.4 F Ascorbic Acid (Vitamin C 500 Mg Tab) 1,000 mg PO DAILY [facility] Last Admin: 02/09/19 10:35 Dose: 1,000 mg Collagenase (Santyl) 1 applic TOP DAILY [facility] Last Admin: 02/09/19 10:34 Dose: 1 applic Cyanocobalamin (Vitamin B12 1000 Mcg Tab) 1,000 mcg PO DAILY [facility] Last Admin: 02/09/19 10:35 Dose: 1,000 mcg Dimethicone (Proshield Plus Skin Protectant) 1 applic TOP Q8 [facility] Last Admin: 02/09/19 10:34 Dose: 1 applic Enoxaparin Sodium (Lovenox) 40 mg SC DAILY [facility]; Protocol Home Med (Letrozole [Femara]) 2.5 mg PO DAILY [facility] Cefepime HCl 1 gm/ Sodium (Chloride) 100 mls @ 100 mls/hr IVPB Q12 [facility]; Protocol Last Admin: 02/09/19 10:31 Dose: 100 mls/hr Metronidazole (Flagyl 500mg/100ml Ns) 100 mls @ 100 mls/hr IVPB Q8 [facility]; Protocol Last Admin: 02/09/19 10:32 Dose: 100 mls/hr Potassium Chloride/Dextrose/Sod Cl (Potassium Chl 40 Meq In D5-1/2ns) 1,000 mls @ 60 mls/hr IV .[id number] [facility] Stop: 02/09/19 16:48 Last Admin: 02/09/19 12:06 Dose: Not Given Sodium Chloride (Sodium Chloride 0.9%) 1,000 mls @ 100 mls/hr IV .Q10H [facility] Metoprolol Tartrate (Lopressor) 25 mg PO Q12 [facility] Last Admin: 02/09/19 10:33 Dose: 25 mg Oxycodone/Acetaminophen (Percocet 5/325 Mg Tab) 1 tab PO Q6 PRN PRN Reason: Pain, moderate (4-7) Stop: 02/12/19 13:22 Oxycodone/Acetaminophen (Percocet 5/325 Mg Tab) 2 tab PO Q6 PRN PRN Reason: Pain, severe (8-10) Stop: 02/12/19 13:22 - Labs Labs: 02/09/19 04:45 02/09/19 04:45 PT 14.7 Seconds (9.8-13.1) H 02/09/19 04:45 INR 1.3 02/09/19 04:45 APTT 29.3 Seconds (25.6-37.1) 02/09/19 04:45 Attending/Attestation - Attestation I have personally seen and examined this patient.: Yes I have fully participated in the care of the patient.: Yes I have reviewed all pertinent clinical information, including history, physical exam and plan: Yes Notes (Text): Sepsis due to Infected Sacral Decubitus Ulcer Stage IV Sacral Decubitus Ulcer History of BRain Mass HTN Hypokalemia -Surgery consulted and pt is for debridement of sacral decubitus today - Cardio optimized by Dr Young -cont IV Cefepime -Dr Chu consulted - family does not wish any further eval/tx of brain mass - replace electrolytes
[2019-02-09] MEDS ORDERED: Sodium Chloride 0.9% 500 ML IV ONE (12:00)
[2019-02-09] MEDS ORDERED: Propofol 10 mg/ml Inj (20 ML) ONE (12:03)
[2019-02-09] MEDS ORDERED: Lidocaine 1% 5ml Abboject ONE (12:04)
[2019-02-09] MEDS ORDERED: Lidocaine 4% (Laryng-O-Jet) Kit MM ONE (12:04)
[2019-02-09] MEDS: Potassium Chl 40 mEq in D5-1/2 1,000 ML IV SCH (12:06)
[2019-02-09] MEDS ORDERED: Bupivacaine 0.5% Inj(30mL) ONE (12:09)
[2019-02-09] MEDS ORDERED: Etomidate 20 mg/10ml Inj IV ONE (12:30)
[2019-02-09] MEDS ORDERED: Sodium Chloride 0.9% 1,000 ML IV SCH (13:00)
--- NOTE | 2019-02-09 13:15 | CP.PCM.PN ---
Subjective - Date & Time of Evaluation Date of Evaluation: 02/09/19 Time of Evaluation: 09:00 - Subjective Subjective: weak lethargic NAD Objective - Vital Signs/Intake and Output Vital Signs (last 24 hours): Temp Pulse Resp BP Pulse Ox 98.3 F 98 H 20 135/79 96 02/09/19 11:45 02/09/19 11:45 02/09/19 11:45 02/09/19 11:45 02/09/19 11:45 Intake and Output: 02/09/19 02/09/19 06:59 18:59 Intake Total 2500 50 Output Total 1375 5 Balance 1125 45 - Medications Medications: Current Medications Acetaminophen (Tylenol 325mg Tab) 650 mg PO Q4 PRN PRN Reason: Fever >100.4 F Ascorbic Acid (Vitamin C 500 Mg Tab) 1,000 mg PO DAILY [facility] Last Admin: 02/09/19 10:35 Dose: 1,000 mg Collagenase (Santyl) 1 applic TOP DAILY [facility] Last Admin: 02/09/19 10:34 Dose: 1 applic Cyanocobalamin (Vitamin B12 1000 Mcg Tab) 1,000 mcg PO DAILY [facility] Last Admin: 02/09/19 10:35 Dose: 1,000 mcg Dimethicone (Proshield Plus Skin Protectant) 1 applic TOP Q8 [facility] Last Admin: 02/09/19 10:34 Dose: 1 applic Home Med (Letrozole [Femara]) 2.5 mg PO DAILY [facility] Cefepime HCl 1 gm/ Sodium (Chloride) 100 mls @ 100 mls/hr IVPB Q12 [facility]; Protocol Last Admin: 02/09/19 10:31 Dose: 100 mls/hr Metronidazole (Flagyl 500mg/100ml Ns) 100 mls @ 100 mls/hr IVPB Q8 [facility]; Protocol Last Admin: 02/09/19 10:32 Dose: 100 mls/hr Potassium Chloride/Dextrose/Sod Cl (Potassium Chl 40 Meq In D5-1/2ns) 1,000 mls @ 60 mls/hr IV .[id number] [facility] Stop: 02/09/19 16:48 Last Admin: 02/09/19 12:06 Dose: Not Given Sodium Chloride (Sodium Chloride 0.9%) 1,000 mls @ 100 mls/hr IV .Q10H [facility] Metoprolol Tartrate (Lopressor) 25 mg PO Q12 [facility] Last Admin: 02/09/19 10:33 Dose: 25 mg - Labs Labs: 02/09/19 04:45 02/09/19 04:45 PT 14.7 Seconds (9.8-13.1) H 02/09/19 04:45 INR 1.3 02/09/19 04:45 APTT 29.3 Seconds (25.6-37.1) 02/09/19 04:45 - Constitutional Appears: Non-toxic, Chronically Ill - Head Exam Head Exam: ATRAUMATIC, NORMAL INSPECTION, NORMOCEPHALIC - Eye Exam Eye Exam: EOMI, Normal appearance, PERRL Pupil Exam: NORMAL ACCOMODATION, PERRL - ENT Exam ENT Exam: Mucous Membranes Moist, Normal Exam - Neck Exam Neck Exam: Full ROM, Normal Inspection. absent: Lymphadenopathy - Respiratory Exam Respiratory Exam: Clear to Ausculation Bilateral, NORMAL BREATHING PATTERN - Cardiovascular Exam Cardiovascular Exam: REGULAR RHYTHM, +S1, +S2. absent: Murmur - GI/Abdominal Exam GI & Abdominal Exam: Soft, Normal Bowel Sounds. absent: Tenderness - Rectal Exam Rectal Exam: Deferred - Exam Exam: NORMAL INSPECTION - Extremities Exam Extremities Exam: Full ROM, Normal Capillary Refill, Normal Inspection. absent: Joint Swelling, Pedal Edema - Back Exam Back Exam: NORMAL INSPECTION - Neurological Exam Neurological Exam: Alert, Awake, CN II-XII Intact, Oriented x3. absent: Normal Gait - Psychiatric Exam Psychiatric exam: Depressed - Skin Skin Exam: Dry. absent: Intact Assessment and Plan (1) Sepsis Status: Acute (2) UTI (urinary tract infection) Status: Acute (3) Altered mental state Status: Acute (4) Mass of brain Status: Acute (5) Dehydration Status: Resolved - Assessment and Plan (Free Text) Assessment: xont wound care and IV antibotics for infected decubitus
--- NOTE | 2019-02-09 13:20 | PCM.SURG1 ---
Surgeon's Initial Post Op Note - Surgeon's Notes Surgeon: Dr. Huertas Media Marketing Coordinator: Dr. Williamson Type of Anesthesia: General LMA, Local Pre-Operative Diagnosis: stage 4 sacral decubitus ulcer, chronic Operative Findings: see operative dictation Post-Operative Diagnosis: 10x7cm stage 4 sacral decubitus ulcer, chronic Operation Performed: debridement of sacral decubitus ulcer Specimen/Specimens Removed: necrotic, nonviable soft tissue Estimated Blood Loss: EBL {In ML}: 10 Blood Products Given: N/A Drains Used: No Drains Post-Op Condition: Good Date of Surgery/Procedure: 02/09/19 Time of Surgery/Procedure: 13:20
[2019-02-09] MEDS ORDERED: Oxycodone/Acetaminophen 5/325 mg Tab PO PRN ×2 (13:21)
--- NOTE | 2019-02-09 16:53 | CARD ---
APPROVED REPORT Date of service: 02/09/2019 EXAM: Two-dimensional and M-mode echocardiogram with Doppler and color Doppler. Other Information Quality : GoodRhythm : Tachycardia INDICATION Pre-Op 2D DIMENSIONS IVSd0.97 (0.7-1.1cm)LVDd4.84 (3.9-5.9cm) LVOT Diameter2.07 (1.8-2.4cm)PWd1.19 (0.7-1.1cm) IVSs1.41 (0.8-1.2cm)LVDs4.02 (2.5-4.0cm) FS (%) 16.9 %PWs1.40 (0.8-1.2cm) M-Mode DIMENSIONS Left Atrium (MM)3.20 (2.5-4.0cm)IVSd1.05 (0.7-1.1cm) Aortic Root3.12 (2.2-3.7cm)LVDd5.51 (4.0-5.6cm) Aortic Cusp Exc.1.60 (1.5-2.0cm)PWd1.27 (0.7-1.1cm) IVSs1.24 cmFS (%) 28 % LVDs3.97 (2.0-3.8cm)PWs1.93 cm Aortic Valve AoV Peak Lqkjjvvu835.3cm/sAoV VTI23.4cmAO Peak GR.11mmHg LVOT Peak Uglbjmau235.5cm/sLVOT VTI16.75cmAO Mean GR.6mmHg CORAL (VMAX)1.84tk7FFO (VTI)1.34cm2 Mitral Valve MV E Ercutnnt240.5cm/sE/A ratio0.0 TDI Lateral E' Peak V11.00cm/sE/Lateral E'10.1E/Medial E'0.0 LEFT VENTRICLE The left ventricle is normal size. There is normal left ventricular wall thickness. The left ventricular systolic function is low normal. The estimated ejection fraction is 50-55% No regional wall motion abnormalities noted.. The left ventricular diastolic function assessment is inconclusive. No left ventricle thrombus noted on this study. There is no ventricular septal defect visualized. There is no left ventricular aneurysm. There is no mass noted in the left ventricle. RIGHT VENTRICLE The right ventricle is normal size. There is normal right ventricular wall thickness. The right ventricular systolic function is normal. ATRIA The left atrium size is normal. The right atrium size is normal. The interatrial septum is intact with no evidence for an atrial septal defect. AORTIC VALVE The aortic valve is normal in structure. Mild aortic regurgitation is present. There is no aortic valvular stenosis. There is no aortic valvular vegetation. MITRAL VALVE The mitral valve is normal in structure. There is no evidence of mitral valve prolapse. There is no mitral valve stenosis. There is no mitral valve regurgitation noted. TRICUSPID VALVE The tricuspid valve is normal in structure. There is trace tricuspid valve regurgitation noted. RVSP is calculated at less than 20 mm Hg. There is no tricuspid valve prolapse or vegetation. There is no tricuspid valve stenosis. PULMONIC VALVE The pulmonary valve is normal in structure. There is no pulmonic valvular regurgitation. There is no pulmonic valvular stenosis. GREAT VESSELS The aortic root is normal in size. The ascending aorta is normal in size. The pulmonary artery is normal. The IVC is normal in size and collapses >50% with inspiration. PERICARDIAL EFFUSION There is no pericardial effusion. There is no pleural effusion. <Conclusion> The left ventricular systolic function is low normal. The estimated ejection fraction is 50-55%. Parodoxical septal motion from underlying LBBB. The left ventricular diastolic function assessment is inconclusive. The left atrium size is normal. Mild aortic regurgitation is present. There is trace tricuspid valve regurgitation noted. RVSP is calculated at less than 20 mm Hg.
--- NOTE | 2019-02-09 22:15 | OP ---
PROCEDURE DATE: 02/09/2019 PREOPERATIVE DIAGNOSIS: Unstageable sacral decubitus ulcer. POSTOPERATIVE DIAGNOSIS: Unstageable sacral decubitus ulcer. PROCEDURE: Debridement of sacral decubitus ulcer. SURGEON: Jordon Huertas MD SYSTEMS LIBRARIAN: TYPE OF ANESTHESIA: General, local. FINDINGS: The patient had a 10 x 7 unstageable sacral decubitus ulcer with necrotic subcutaneous tissue and necrotic muscle specimen and necrotic skin, tissues. ESTIMATED BLOOD LOSS: 10 mL. DRAINS: None. POSTOPERATIVE CONDITION: Fair. BRIEF HISTORY: This is an 83-year-old female with multiple medical problems who presented initially to the emergency room with complaints of abdominal pain. The patient on physical examination was found to have an unstageable sacral decubitus ulcer. The patient was worked up for abdominal pain and likely her symptoms were secondary to urinary retention. The imaging was unimpressive. The patient also had an elevated white count likely also being caused from the possible infected ulcer. The patient was preoped for debridement. Family was contacted. I explained the risks and benefits of the procedure. The family agreed and consent was obtained. DESCRIPTION OF PROCEDURE: On the date of procedure, the patient was brought to the operating room where she was placed in the supine position. She was placed under general anesthesia. The patient was then placed on the right lateral decubitus position. The patient's back and sacrum were then prepped and draped in the usual sterile fashion using Betadine. After an adequate time-out, we began the procedure. Using a #10 blade, the necrotic skin was excised. After excision of the necrotic skin, the subcutaneous tissue was also found to be necrotic. Using a combination of the #10 blade along with the Metzenbaum, necrotic tissue was excised. The Bovie cautery was then used to obtain adequate hemostasis. The wound was irrigated. Adequate hemostasis was then confirmed. The wound was then packed with Kerlix. Sterile dressing was then applied to the area. The patient tolerated well and extubated without any complications and brought to the recover room in stable condition. At the end of the procedure, there was an adequate count to all needles, sponges and instruments. Jordon Huertas MD
[2019-02-10] MEDS: metroNIDAZOLE 500mg/100ml NS 100 ML IVPB SCH ×3 (00:50→17:45)
[2019-02-10] MEDS: Proshield Plus GEL TOP SCH ×3 (01:00→09:51)
[2019-02-10 07:33] LABS: HEMOGLOBIN 11.2 g/dL (12.0-16.0); MEAN CELL VOLUME 86.8 fl (81.0-99.0); MEAN CORPUSCULAR HEMOGLOBIN 28.7 pg (27.0-31.0); MEAN CORPUSCULAR HGB CONC 33.1 g/dL (33.0-37.0); RBC 3.9 Mil/uL (3.80-5.20); WHITE BLOOD COUNT 9.1 K/uL (4.8-10.8)
--- NOTE | 2019-02-10 08:00 | CP.PCM.PN ---
<Ankit Rangel - Last Filed: 02/10/19 08:24> Subjective - Date & Time of Evaluation Date of Evaluation: 02/10/19 Time of Evaluation: 08:24 - Subjective Subjective: Surgery Note for Dr. Arreola Patient seen and examined at bedside. She is s/p sacral wound debridement with wound vac application POD#1. Patient is oriented to person. Patient refusing to be turned initially. SHe is tolerating diet. Patient passing flatus and having BMs. Wound vac with appropriate negative pressure. Objective - Vital Signs/Intake and Output Vital Signs (last 24 hours): Temp Pulse Resp BP Pulse Ox 98.8 F 99 H 18 150/80 97 02/10/19 05:00 02/10/19 05:00 02/10/19 05:00 02/10/19 05:00 02/10/19 05:00 Intake and Output: 02/10/19 02/10/19 06:59 18:59 Intake Total 1400 Output Total 300 Balance 1100 - Medications Medications: Current Medications Acetaminophen (Tylenol 325mg Tab) 650 mg PO Q4 PRN PRN Reason: Fever >100.4 F Ascorbic Acid (Vitamin C 500 Mg Tab) 1,000 mg PO DAILY [facility] Last Admin: 02/09/19 10:35 Dose: 1,000 mg Collagenase (Santyl) 1 applic TOP DAILY [facility] Last Admin: 02/09/19 10:34 Dose: 1 applic Cyanocobalamin (Vitamin B12 1000 Mcg Tab) 1,000 mcg PO DAILY [facility] Last Admin: 02/09/19 10:35 Dose: 1,000 mcg Dimethicone (Proshield Plus Skin Protectant) 1 applic TOP Q8 [facility] Last Admin: 02/10/19 01:00 Dose: 1 applic Enoxaparin Sodium (Lovenox) 40 mg SC DAILY [facility]; Protocol Home Med (Letrozole [Femara]) 2.5 mg PO DAILY [facility] Cefepime HCl 1 gm/ Sodium (Chloride) 100 mls @ 100 mls/hr IVPB Q12 [facility]; Protocol Last Admin: 02/09/19 21:18 Dose: 100 mls/hr Metronidazole (Flagyl 500mg/100ml Ns) 100 mls @ 100 mls/hr IVPB Q8 [facility]; Protocol Last Admin: 02/10/19 00:50 Dose: 100 mls/hr Sodium Chloride (Sodium Chloride 0.9%) 1,000 mls @ 100 mls/hr IV .Q10H [facility] Last Admin: 02/09/19 17:34 Dose: 100 mls/hr Metoprolol Tartrate (Lopressor) 25 mg PO Q12 [facility] Last Admin: 02/09/19 21:18 Dose: 25 mg Oxycodone/Acetaminophen (Percocet 5/325 Mg Tab) 1 tab PO Q6 PRN PRN Reason: Pain, moderate (4-7) Stop: 02/12/19 13:22 Oxycodone/Acetaminophen (Percocet 5/325 Mg Tab) 2 tab PO Q6 PRN PRN Reason: Pain, severe (8-10) Stop: 02/12/19 13:22 - Labs Labs: 02/10/19 06:04 02/09/19 04:45 PT 14.7 Seconds (9.8-13.1) H 02/09/19 04:45 INR 1.3 02/09/19 04:45 APTT 29.3 Seconds (25.6-37.1) 02/09/19 04:45 - Constitutional Appears: No Acute Distress, Chronically Ill - Head Exam Head Exam: ATRAUMATIC, NORMOCEPHALIC - Eye Exam Eye Exam: EOMI, Normal appearance Pupil Exam: PERRL - ENT Exam ENT Exam: Mucous Membranes Moist - Respiratory Exam Respiratory Exam: NORMAL BREATHING PATTERN - Cardiovascular Exam Cardiovascular Exam: REGULAR RHYTHM - GI/Abdominal Exam GI & Abdominal Exam: Soft. absent: Tenderness - Back Exam Additional comments: wound vac dressing clean dry intact, appropriate negative pressure at 125 mmhg - Neurological Exam Neurological Exam: Awake - Psychiatric Exam Psychiatric exam: Flat Affect - Skin Skin Exam: Dry, Warm Assessment and Plan - Assessment and Plan (Free Text) Assessment: 83M with sacral decubitus ulcer s/p debridemnt and wound vac application POD#1 Plan: -Wound vac Chnage Monday 02/12 -Continue IV abx -Diet as tolerated -Medical management as per primary -Further recommendations as per Dr. Maxwell Rangel PGY2 <Kurt Arreola - Last Filed: 02/10/19 16:24> Subjective - Date & Time of Evaluation Time of Evaluation: 16:05 - Subjective Subjective: Patient was seen and examined at the bedside. Agree with resident's note above. Objective - Vital Signs/Intake and Output Vital Signs (last 24 hours): Temp Pulse Resp BP Pulse Ox 98.2 F 118 H 18 118/80 98 02/10/19 12:02 02/10/19 12:02 02/10/19 12:02 02/10/19 12:02 02/10/19 12:02 Intake and Output: 02/10/19 02/10/19 06:59 18:59 Intake Total 1400 Output Total 300 Balance 1100 - Medications Medications: Current Medications Acetaminophen (Tylenol 325mg Tab) 650 mg PO Q4 PRN PRN Reason: Fever >100.4 F Ascorbic Acid (Vitamin C 500 Mg Tab) 1,000 mg PO DAILY [facility] Last Admin: 02/10/19 09:51 Dose: 1,000 mg Cyanocobalamin (Vitamin B12 1000 Mcg Tab) 1,000 mcg PO DAILY [facility] Last Admin: 02/10/19 09:51 Dose: 1,000 mcg Dimethicone (Proshield Plus Skin Protectant) 1 applic TOP Q8 [facility] Last Admin: 02/10/19 09:51 Dose: 1 applic Enoxaparin Sodium (Lovenox) 40 mg SC DAILY [facility]; Protocol Last Admin: 02/10/19 09:50 Dose: 40 mg Home Med (Letrozole [Femara]) 2.5 mg PO DAILY [facility] Cefepime HCl 1 gm/ Sodium (Chloride) 100 mls @ 100 mls/hr IVPB Q12 [facility]; Protocol Last Admin: 02/10/19 09:49 Dose: 100 mls/hr Metronidazole (Flagyl 500mg/100ml Ns) 100 mls @ 100 mls/hr IVPB Q8 [facility]; Protocol Last Admin: 02/10/19 09:49 Dose: 100 mls/hr Metoprolol Tartrate (Lopressor) 25 mg PO Q12 [facility] Last Admin: 02/10/19 09:50 Dose: 25 mg Oxycodone/Acetaminophen (Percocet 5/325 Mg Tab) 1 tab PO Q6 PRN PRN Reason: Pain, moderate (4-7) Stop: 02/12/19 13:22 Oxycodone/Acetaminophen (Percocet 5/325 Mg Tab) 2 tab PO Q6 PRN PRN Reason: Pain, severe (8-10) Stop: 02/12/19 13:22 - Labs Labs: 02/10/19 06:04 02/10/19 06:04 PT 14.7 Seconds (9.8-13.1) H 02/09/19 04:45 INR 1.3 02/09/19 04:45 APTT 29.3 Seconds (25.6-37.1) 02/09/19 04:45
[2019-02-10 08:07] LABS: BLOOD UREA NITROGEN 12 mg/dl (7-17); CALCIUM 8.7 mg/dL (8.4-10.2); GFR NON-AFRICAN AMERICAN > 60
[2019-02-10] MEDS ORDERED: Potassium Chloride 20 mEq ER Tab PO ONE (08:30)
[2019-02-10] MEDS: Cefepime 1 GM in Sodium Chloride 0.9% 100 ML IVPB SCH ×2 (09:49→21:35)
[2019-02-10] MEDS: Enoxaparin 40 mg Syringe SC SCH (09:50)
--- NOTE | 2019-02-10 11:41 | CP.PCM.PN ---
<Felipa Kay - Last Filed: 02/10/19 15:44> Objective - Vital Signs/Intake and Output Vital Signs (last 24 hours): Temp Pulse Resp BP Pulse Ox 98.2 F 118 H 18 118/80 98 02/10/19 12:02 02/10/19 12:02 02/10/19 12:02 02/10/19 12:02 02/10/19 12:02 Intake and Output: 02/10/19 02/10/19 06:59 18:59 Intake Total 1400 Output Total 300 Balance 1100 - Medications Medications: Current Medications Acetaminophen (Tylenol 325mg Tab) 650 mg PO Q4 PRN PRN Reason: Fever >100.4 F Ascorbic Acid (Vitamin C 500 Mg Tab) 1,000 mg PO DAILY [facility] Last Admin: 02/10/19 09:51 Dose: 1,000 mg Cyanocobalamin (Vitamin B12 1000 Mcg Tab) 1,000 mcg PO DAILY [facility] Last Admin: 02/10/19 09:51 Dose: 1,000 mcg Dimethicone (Proshield Plus Skin Protectant) 1 applic TOP Q8 [facility] Last Admin: 02/10/19 09:51 Dose: 1 applic Enoxaparin Sodium (Lovenox) 40 mg SC DAILY [facility]; Protocol Last Admin: 02/10/19 09:50 Dose: 40 mg Home Med (Letrozole [Femara]) 2.5 mg PO DAILY [facility] Cefepime HCl 1 gm/ Sodium (Chloride) 100 mls @ 100 mls/hr IVPB Q12 [facility]; Protocol Last Admin: 02/10/19 09:49 Dose: 100 mls/hr Metronidazole (Flagyl 500mg/100ml Ns) 100 mls @ 100 mls/hr IVPB Q8 [facility]; Protocol Last Admin: 02/10/19 09:49 Dose: 100 mls/hr Metoprolol Tartrate (Lopressor) 25 mg PO Q12 [facility] Last Admin: 02/10/19 09:50 Dose: 25 mg Oxycodone/Acetaminophen (Percocet 5/325 Mg Tab) 1 tab PO Q6 PRN PRN Reason: Pain, moderate (4-7) Stop: 02/12/19 13:22 Oxycodone/Acetaminophen (Percocet 5/325 Mg Tab) 2 tab PO Q6 PRN PRN Reason: Pain, severe (8-10) Stop: 02/12/19 13:22 - Labs Labs: 02/10/19 06:04 02/10/19 06:04 PT 14.7 Seconds (9.8-13.1) H 02/09/19 04:45 INR 1.3 02/09/19 04:45 APTT 29.3 Seconds (25.6-37.1) 02/09/19 04:45 Attending/Attestation - Attestation I have personally seen and examined this patient.: Yes I have fully participated in the care of the patient.: Yes I have reviewed all pertinent clinical information, including history, physical exam and plan: Yes Notes (Text): Sepsis due to Infected Sacral Decubitus Ulcer Stage IV Sacral Decubitus Ulcer s/p Debridement 02/09 with Wound Vac placement History of Brain Mass HTN Hypokalemia Cholecystitis ruled out -Surgery consulted , debridement of sacral decubitus done with placement of Wound Vac -cont IV Cefepime and Flagyl -Dr Chu consulted - family does not wish any further eval/tx of brain mass - replace electrolytes - cont Metoprolol - Lovenox for DVT proph <Kam Rowan - Last Filed: 02/10/19 16:08> Subjective - Date & Time of Evaluation Date of Evaluation: 02/10/19 Time of Evaluation: 11:40 - Subjective Subjective: POD #1 s/p debridement of sacral ulceration with wound vac placement Patient seen and examined beside with Dr. Kay. Pleasantly demented. No complaints. Wound vac intact, in place - neg pressure 125mmhg. Bell catheter in place. Objective - Vital Signs/Intake and Output Vital Signs (last 24 hours): Temp Pulse Resp BP Pulse Ox 98 F 103 H 18 135/85 96 02/10/19 08:04 02/10/19 09:50 02/10/19 08:04 02/10/19 09:50 02/10/19 08:04 Intake and Output: 02/10/19 02/10/19 06:59 18:59 Intake Total 1400 Output Total 300 Balance 1100 - Medications Medications: Current Medications Acetaminophen (Tylenol 325mg Tab) 650 mg PO Q4 PRN PRN Reason: Fever >100.4 F Ascorbic Acid (Vitamin C 500 Mg Tab) 1,000 mg PO DAILY [facility] Last Admin: 02/10/19 09:51 Dose: 1,000 mg Cyanocobalamin (Vitamin B12 1000 Mcg Tab) 1,000 mcg PO DAILY [facility] Last Admin: 02/10/19 09:51 Dose: 1,000 mcg Dimethicone (Proshield Plus Skin Protectant) 1 applic TOP Q8 [facility] Last Admin: 02/10/19 09:51 Dose: 1 applic Enoxaparin Sodium (Lovenox) 40 mg SC DAILY [facility]; Protocol Last Admin: 02/10/19 09:50 Dose: 40 mg Home Med (Letrozole [Femara]) 2.5 mg PO DAILY [facility] Cefepime HCl 1 gm/ Sodium (Chloride) 100 mls @ 100 mls/hr IVPB Q12 [facility]; Protocol Last Admin: 02/10/19 09:49 Dose: 100 mls/hr Metronidazole (Flagyl 500mg/100ml Ns) 100 mls @ 100 mls/hr IVPB Q8 [facility]; Protocol Last Admin: 02/10/19 09:49 Dose: 100 mls/hr Sodium Chloride (Sodium Chloride 0.9%) 1,000 mls @ 100 mls/hr IV .Q10H [facility] Last Admin: 02/09/19 17:34 Dose: 100 mls/hr Metoprolol Tartrate (Lopressor) 25 mg PO Q12 [facility] Last Admin: 02/10/19 09:50 Dose: 25 mg Oxycodone/Acetaminophen (Percocet 5/325 Mg Tab) 1 tab PO Q6 PRN PRN Reason: Pain, moderate (4-7) Stop: 02/12/19 13:22 Oxycodone/Acetaminophen (Percocet 5/325 Mg Tab) 2 tab PO Q6 PRN PRN Reason: Pain, severe (8-10) Stop: 02/12/19 13:22 - Labs Labs: 02/10/19 06:04 02/10/19 06:04 PT 14.7 Seconds (9.8-13.1) H 02/09/19 04:45 INR 1.3 02/09/19 04:45 APTT 29.3 Seconds (25.6-37.1) 02/09/19 04:45 - Constitutional Appears: Well - Head Exam Head Exam: ATRAUMATIC, NORMAL INSPECTION, NORMOCEPHALIC - Eye Exam Eye Exam: EOMI, Normal appearance, PERRL - ENT Exam ENT Exam: Mucous Membranes Moist, Normal Exam - Respiratory Exam Respiratory Exam: NORMAL BREATHING PATTERN - Cardiovascular Exam Cardiovascular Exam: REGULAR RHYTHM - GI/Abdominal Exam GI & Abdominal Exam: Soft, Normal Bowel Sounds. 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 Plan: Sepsis with dehydration, ?secondary to decubitus ulcer - could be secondary to stage 4 decubitus ulcer - hemodynamically stable - Abx: Cefepime and Flagyl- day 5 - wound vac in place - mgmt as per surgery. HTN - Chronic - stable - c/w medications Hypokalemia --improved -- today 3.5 -- repleted through IV fluids HX OF BRAIN MASS - follows out patient - Daughter does not want aggressive intervention at this time. Dvt prophylaxis - SCD --lovenox
[2019-02-11] MEDS: metroNIDAZOLE 500mg/100ml NS 100 ML IVPB SCH ×3 (00:42→17:15)
[2019-02-11] MEDS ORDERED: Vancomycin 1 g Inj IVPB ONE (01:30)
[2019-02-11] MEDS: Proshield Plus GEL TOP SCH ×3 (01:32→17:16)
--- NOTE | 2019-02-11 07:03 | CP.PCM.PN ---
<Ankit Rangel - Last Filed: 02/11/19 07:01> Subjective - Date & Time of Evaluation Date of Evaluation: 02/11/19 Time of Evaluation: 07:01 - Subjective Subjective: Surgery Note for Dr. Arreola Patient seen and examined at bedside. She is s/p sacral wound debridement with wound vac application POD#2. SHe is tolerating diet. Patient passing flatus and having BMs. ROS limited due to clinical condition. Objective - Vital Signs/Intake and Output Vital Signs (last 24 hours): Temp Pulse Resp BP Pulse Ox 98.1 F 105 H 18 122/75 97 02/11/19 04:55 02/11/19 04:55 02/11/19 04:55 02/11/19 04:55 02/11/19 04:55 Intake and Output: 02/11/19 02/11/19 06:59 18:59 Intake Total 650 Output Total 1000 Balance -350 - Medications Medications: Current Medications Acetaminophen (Tylenol 325mg Tab) 650 mg PO Q4 PRN PRN Reason: Fever >100.4 F Ascorbic Acid (Vitamin C 500 Mg Tab) 1,000 mg PO DAILY [facility] Last Admin: 02/10/19 09:51 Dose: 1,000 mg Cyanocobalamin (Vitamin B12 1000 Mcg Tab) 1,000 mcg PO DAILY [facility] Last Admin: 02/10/19 09:51 Dose: 1,000 mcg Dimethicone (Proshield Plus Skin Protectant) 1 applic TOP Q8 [facility] Last Admin: 02/11/19 01:32 Dose: 1 applic Enoxaparin Sodium (Lovenox) 40 mg SC DAILY [facility]; Protocol Last Admin: 02/10/19 09:50 Dose: 40 mg Home Med (Letrozole [Femara]) 2.5 mg PO DAILY [facility] Cefepime HCl 1 gm/ Sodium (Chloride) 100 mls @ 100 mls/hr IVPB Q12 [facility]; Protocol Last Admin: 02/10/19 21:35 Dose: 100 mls/hr Metronidazole (Flagyl 500mg/100ml Ns) 100 mls @ 100 mls/hr IVPB Q8 [facility]; Protocol Last Admin: 02/11/19 00:42 Dose: 100 mls/hr Metoprolol Tartrate (Lopressor) 25 mg PO Q12 [facility] Last Admin: 02/10/19 21:35 Dose: 25 mg Oxycodone/Acetaminophen (Percocet 5/325 Mg Tab) 1 tab PO Q6 PRN PRN Reason: Pain, moderate (4-7) Stop: 02/12/19 13:22 Oxycodone/Acetaminophen (Percocet 5/325 Mg Tab) 2 tab PO Q6 PRN PRN Reason: Pain, severe (8-10) Stop: 02/12/19 13:22 - Labs Labs: 02/10/19 06:04 02/10/19 06:04 PT 14.7 Seconds (9.8-13.1) H 02/09/19 04:45 INR 1.3 02/09/19 04:45 APTT 29.3 Seconds (25.6-37.1) 02/09/19 04:45 - Additional Findings Additional findings: - Constitutional Appears: No Acute Distress, Chronically Ill - Head Exam Head Exam: ATRAUMATIC, NORMOCEPHALIC - Eye Exam Eye Exam: EOMI, Normal appearance Pupil Exam: PERRL - ENT Exam ENT Exam: Mucous Membranes Moist - Respiratory Exam Respiratory Exam: NORMAL BREATHING PATTERN - Cardiovascular Exam Cardiovascular Exam: REGULAR RHYTHM - GI/Abdominal Exam GI & Abdominal Exam: Soft. absent: Tenderness - Back Exam Additional comments: wound vac dressing clean dry intact, appropriate negative pressure at 125 mmhg - Neurological Exam Neurological Exam: Awake - Psychiatric Exam Psychiatric exam: Flat Affect - Skin Skin Exam: Dry, Warm Assessment and Plan - Assessment and Plan (Free Text) Assessment: 83M with sacral decubitus ulcer s/p debridemnt and wound vac application POD#2 Plan: -Wound vac to be changed Monday 02/12 -Continue IV abx -Diet as tolerated -Medical management as per primary -Further [facility] as [facility] <Kurt Arreola - Last Filed: 02/11/19 15:01> Subjective - Date & Time of Evaluation Time of Evaluation: 14:25 - Subjective Subjective: Patient was seen and examined at the bedside. Agree with resident's note above. Patient accidentally took wound vac off. Objective - Vital Signs/Intake and Output Vital Signs (last 24 hours): Temp Pulse Resp BP Pulse Ox 98.5 F 121 H 18 119/72 97 02/11/19 12:16 02/11/19 12:16 02/11/19 12:16 02/11/19 12:16 02/11/19 12:16 Intake and Output: 02/11/19 02/11/19 06:59 18:59 Intake Total 650 Output Total 1000 Balance -350 - Medications Medications: Current Medications Acetaminophen (Tylenol 325mg Tab) 650 mg PO Q4 PRN PRN Reason: Fever >100.4 F Ascorbic Acid (Vitamin C 500 Mg Tab) 1,000 mg PO DAILY [facility] Last Admin: 02/11/19 09:41 Dose: 1,000 mg Cyanocobalamin (Vitamin B12 1000 Mcg Tab) 1,000 mcg PO DAILY [facility] Last Admin: 02/11/19 09:40 Dose: 1,000 mcg Dimethicone (Proshield Plus Skin Protectant) 1 applic TOP Q8 [facility] Last Admin: 02/11/19 09:42 Dose: 1 applic Enoxaparin Sodium (Lovenox) 40 mg SC DAILY [facility]; Protocol Last Admin: 02/11/19 09:41 Dose: 40 mg Home Med (Letrozole [Femara]) 2.5 mg PO DAILY [facility] Cefepime HCl 1 gm/ Sodium (Chloride) 100 mls @ 100 mls/hr IVPB Q12 [facility]; Protocol Last Admin: 02/11/19 09:39 Dose: 100 mls/hr Metronidazole (Flagyl 500mg/100ml Ns) 100 mls @ 100 mls/hr IVPB Q8 [facility]; Protocol Last Admin: 02/11/19 09:40 Dose: 100 mls/hr Vancomycin HCl 1 gm/ Sodium (Chloride) 250 mls @ 166.667 mls/hr IVPB Q12H [facility]; Protocol Metoprolol Tartrate (Lopressor) 25 mg PO Q12 [facility] Last Admin: 02/11/19 09:41 Dose: 25 mg Oxycodone/Acetaminophen (Percocet 5/325 Mg Tab) 1 tab PO Q6 PRN PRN Reason: Pain, moderate (4-7) Stop: 02/12/19 13:22 Oxycodone/Acetaminophen (Percocet 5/325 Mg Tab) 2 tab PO Q6 PRN PRN Reason: Pain, severe (8-10) Stop: 02/12/19 13:22 Sodium Hypochlorite (Dakins Solution 0.25%) 1 ml TOP DAILY [facility] - Labs Labs: 02/10/19 06:04 02/10/19 06:04 PT 14.7 Seconds (9.8-13.1) H 02/09/19 04:45 INR 1.3 02/09/19 04:45 APTT 29.3 Seconds (25.6-37.1) 02/09/19 04:45 - Back Exam Additional comments: wound with some slough to the wound base, no erythema, no drainage Assessment and Plan - Assessment and Plan (Free Text) Plan: - Continue antibiotics - Will need some debridment later - Will follow
--- NOTE | 2019-02-11 07:27 | CP.PCM.PN ---
Subjective - Date & Time of Evaluation Date of Evaluation: 02/11/19 Time of Evaluation: 09:45 - Subjective Subjective: POD #2 s/p debridement of sacral ulcer, wound vac placement Patient lying in bed, no complaints. Wound vac was removed, to be changed 02/12 No complaints. afebrile Objective - Vital Signs/Intake and Output Vital Signs (last 24 hours): Temp Pulse Resp BP Pulse Ox 98.1 F 105 H 18 122/75 97 02/11/19 04:55 02/11/19 04:55 02/11/19 04:55 02/11/19 04:55 02/11/19 04:55 Intake and Output: 02/11/19 02/11/19 06:59 18:59 Intake Total 650 Output Total 1000 Balance -350 - Medications Medications: Current Medications Acetaminophen (Tylenol 325mg Tab) 650 mg PO Q4 PRN PRN Reason: Fever >100.4 F Ascorbic Acid (Vitamin C 500 Mg Tab) 1,000 mg PO DAILY [facility] Last Admin: 02/10/19 09:51 Dose: 1,000 mg Cyanocobalamin (Vitamin B12 1000 Mcg Tab) 1,000 mcg PO DAILY [facility] Last Admin: 02/10/19 09:51 Dose: 1,000 mcg Dimethicone (Proshield Plus Skin Protectant) 1 applic TOP Q8 [facility] Last Admin: 02/11/19 01:32 Dose: 1 applic Enoxaparin Sodium (Lovenox) 40 mg SC DAILY [facility]; Protocol Last Admin: 02/10/19 09:50 Dose: 40 mg Home Med (Letrozole [Femara]) 2.5 mg PO DAILY [facility] Cefepime HCl 1 gm/ Sodium (Chloride) 100 mls @ 100 mls/hr IVPB Q12 [facility]; Protocol Last Admin: 02/10/19 21:35 Dose: 100 mls/hr Metronidazole (Flagyl 500mg/100ml Ns) 100 mls @ 100 mls/hr IVPB Q8 [facility]; Protocol Last Admin: 02/11/19 00:42 Dose: 100 mls/hr Metoprolol Tartrate (Lopressor) 25 mg PO Q12 [facility] Last Admin: 02/10/19 21:35 Dose: 25 mg Oxycodone/Acetaminophen (Percocet 5/325 Mg Tab) 1 tab PO Q6 PRN PRN Reason: Pain, moderate (4-7) Stop: 02/12/19 13:22 Oxycodone/Acetaminophen (Percocet 5/325 Mg Tab) 2 tab PO Q6 PRN PRN Reason: Pain, severe (8-10) Stop: 02/12/19 13:22 Potassium Chloride (K-Dur 20 Meq Er Tab) 40 meq PO ONCE ONE Stop: 02/11/19 07:27 - Labs Labs: 02/10/19 06:04 02/10/19 06:04 PT 14.7 Seconds (9.8-13.1) H 02/09/19 04:45 INR 1.3 02/09/19 04:45 APTT 29.3 Seconds (25.6-37.1) 02/09/19 04:45 - Constitutional Appears: Non-toxic - Head Exam Head Exam: ATRAUMATIC, NORMAL INSPECTION, NORMOCEPHALIC - Respiratory Exam Respiratory Exam: Clear to Ausculation Bilateral, NORMAL BREATHING PATTERN. 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 Patient is s/p wound debridement, currently on abx treatment. Afebrile, hemodynamically stable. Sepsis with dehydration, ?secondary to decubitus ulcer - could be secondary to stage 4 decubitus ulcer -positive blood culture, urine culture negative. - hemodynamically stable - Abx: Cefepime and Flagyl- day 6 - wound vac in place - mgmt as per surgery. HTN - Chronic, also with tachycardia, monitor bp can consider increase in metoprolol - stable - c/w medications Anemia -normocytic -stable, monitor Hypokalemia --improved repeat K pending HX OF BRAIN MASS - follows out patient - Daughter does not want aggressive intervention at this time. Dvt prophylaxis - SCD --lovenox
[2019-02-11] MEDS ORDERED: Potassium Chloride 20 mEq ER Tab PO ONE (09:15)
[2019-02-11] MEDS: Cefepime 1 GM in Sodium Chloride 0.9% 100 ML IVPB SCH ×2 (09:39→20:45)
[2019-02-11] MEDS: Enoxaparin 40 mg Syringe SC SCH (09:41)
[2019-02-11] MEDS ORDERED: Povidone Iodine Topical 10% Sol ONE (10:18)
[2019-02-11] MEDS: Dakin's Topical 0.25%-Half Strength (480 ml) TOP SCH (12:16)
--- NOTE | 2019-02-11 12:35 | CP.PCM.PN ---
Subjective - Date & Time of Evaluation Date of Evaluation: 02/11/19 Time of Evaluation: 07:00 - Subjective Subjective: blood shows gram + cocci 1/2 sets may be contaminant IV Vanco added HAS HUGE STAGE IV DECUBITUS DOWN TO BONE VAC IN P[LACE IV RX IN PROGRESS POOR PROGNOSIS Objective - Vital Signs/Intake and Output Vital Signs (last 24 hours): Temp Pulse Resp BP Pulse Ox 98.5 F 121 H 18 119/72 97 02/11/19 12:16 02/11/19 12:16 02/11/19 12:16 02/11/19 12:16 02/11/19 12:16 Intake and Output: 02/11/19 02/11/19 06:59 18:59 Intake Total 650 Output Total 1000 Balance -350 - Medications Medications: Current Medications Acetaminophen (Tylenol 325mg Tab) 650 mg PO Q4 PRN PRN Reason: Fever >100.4 F Ascorbic Acid (Vitamin C 500 Mg Tab) 1,000 mg PO DAILY [facility] Last Admin: 02/11/19 09:41 Dose: 1,000 mg Cyanocobalamin (Vitamin B12 1000 Mcg Tab) 1,000 mcg PO DAILY [facility] Last Admin: 02/11/19 09:40 Dose: 1,000 mcg Dimethicone (Proshield Plus Skin Protectant) 1 applic TOP Q8 [facility] Last Admin: 02/11/19 09:42 Dose: 1 applic Enoxaparin Sodium (Lovenox) 40 mg SC DAILY [facility]; Protocol Last Admin: 02/11/19 09:41 Dose: 40 mg Home Med (Letrozole [Femara]) 2.5 mg PO DAILY [facility] Cefepime HCl 1 gm/ Sodium (Chloride) 100 mls @ 100 mls/hr IVPB Q12 [facility]; Protocol Last Admin: 02/11/19 09:39 Dose: 100 mls/hr Metronidazole (Flagyl 500mg/100ml Ns) 100 mls @ 100 mls/hr IVPB Q8 [facility]; Protocol Last Admin: 02/11/19 09:40 Dose: 100 mls/hr Metoprolol Tartrate (Lopressor) 25 mg PO Q12 [facility] Last Admin: 02/11/19 09:41 Dose: 25 mg Oxycodone/Acetaminophen (Percocet 5/325 Mg Tab) 1 tab PO Q6 PRN PRN Reason: Pain, moderate (4-7) Stop: 02/12/19 13:22 Oxycodone/Acetaminophen (Percocet 5/325 Mg Tab) 2 tab PO Q6 PRN PRN Reason: Pain, severe (8-10) Stop: 02/12/19 13:22 Sodium Hypochlorite (Dakins Solution 0.25%) 1 ml TOP DAILY [facility] - Labs Labs: 02/10/19 06:04 02/10/19 06:04 PT 14.7 Seconds (9.8-13.1) H 02/09/19 04:45 INR 1.3 02/09/19 04:45 APTT 29.3 Seconds (25.6-37.1) 02/09/19 04:45 - Constitutional Appears: Non-toxic, No Acute Distress, Chronically Ill - Head Exam Head Exam: NORMOCEPHALIC - Eye Exam Eye Exam: EOMI, Normal appearance, PERRL Pupil Exam: NORMAL ACCOMODATION, PERRL - ENT Exam ENT Exam: Mucous Membranes Moist, Normal Exam - Neck Exam Neck Exam: Full ROM, Normal Inspection. absent: Lymphadenopathy - Respiratory Exam Respiratory Exam: Clear to Ausculation Bilateral, NORMAL BREATHING PATTERN - Cardiovascular Exam Cardiovascular Exam: REGULAR RHYTHM, +S1, +S2. absent: Murmur - GI/Abdominal Exam GI & Abdominal Exam: Soft, Normal Bowel Sounds. absent: Tenderness - Rectal Exam Rectal Exam: Deferred - Exam Exam: NORMAL INSPECTION - Extremities Exam Extremities Exam: Full ROM, Normal Capillary Refill, Normal Inspection. absent: Joint Swelling, Pedal Edema - Back Exam Back Exam: NORMAL INSPECTION - Neurological Exam Neurological Exam: Alert, Altered, Awake, CN II-XII Intact. absent: Normal Gait, Oriented x3 - Psychiatric Exam Psychiatric exam: Normal Affect, Normal Mood - Skin Skin Exam: Dry, Warm. absent: Intact - Additional Findings Additional findings: LARGE SACRAL WOUND WITH VAC IN PLACE Assessment and Plan (1) Sepsis Status: Acute (2) UTI (urinary tract infection) Status: Acute (3) Altered mental state Status: Acute (4) Mass of brain Status: Acute (5) Dehydration Status: Resolved - Assessment and Plan (Free Text) Assessment: blood shows gram + cocci 1/2 sets may be contaminant IV Vanco added HAS HUGE STAGE IV DECUBITUS DOWN TO BONE VAC IN P[LACE IV RX IN PROGRESS POOR PROGNOSIS
[2019-02-11] MEDS ORDERED: Sodium Chloride 0.9% 500 ML IV SCH (19:30)
[2019-02-11 20:12] LABS: HEMOGLOBIN 10.9 g/dL (12.0-16.0); MEAN CELL VOLUME 87.6 fl (81.0-99.0); MEAN CORPUSCULAR HEMOGLOBIN 28.8 pg (27.0-31.0); MEAN CORPUSCULAR HGB CONC 32.9 g/dL (33.0-37.0); RBC 3.79 Mil/uL (3.80-5.20); RED CELL DISTRIBUTION WIDTH 14.9 % (11.5-14.5); WHITE BLOOD COUNT 8.9 K/uL (4.8-10.8)
[2019-02-11 20:20] LABS: BLOOD UREA NITROGEN 20 mg/dl (7-17); CALCIUM 8.2 mg/dL (8.4-10.2); GFR NON-AFRICAN AMERICAN > 60
[2019-02-12] MEDS: metroNIDAZOLE 500mg/100ml NS 100 ML IVPB SCH ×3 (01:41→17:03)
[2019-02-12] MEDS: Proshield Plus GEL TOP SCH ×3 (05:31→17:03)
--- NOTE | 2019-02-12 07:23 | CP.PCM.PN ---
<TeriLarry - Last Filed: 02/12/19 07:20> Subjective - Date & Time of Evaluation Date of Evaluation: 02/12/19 Time of Evaluation: 07:20 - Subjective Subjective: Surgery Progress Note for Dr. Huertas 83F seen and evaluated at bedside this morning. No acute events overnight. No complaints this morning. Patient has wet-to-dry dressing over sacrum. Denies f/c, n/v/d, SOB, CP, or urinary symptoms. Objective - Vital Signs/Intake and Output Vital Signs (last 24 hours): Temp Pulse Resp BP Pulse Ox 97.6 F 112 H 20 117/64 95 02/12/19 05:10 02/12/19 05:10 02/12/19 05:10 02/12/19 05:10 02/12/19 05:10 Intake and Output: 02/12/19 02/12/19 06:59 18:59 Intake Total 1250 Output Total 0 Balance 1250 - Medications Medications: Current Medications Acetaminophen (Tylenol 325mg Tab) 650 mg PO Q4 PRN PRN Reason: Fever >100.4 F Ascorbic Acid (Vitamin C 500 Mg Tab) 1,000 mg PO DAILY [facility] Last Admin: 02/11/19 09:41 Dose: 1,000 mg Cyanocobalamin (Vitamin B12 1000 Mcg Tab) 1,000 mcg PO DAILY [facility] Last Admin: 02/11/19 09:40 Dose: 1,000 mcg Dimethicone (Proshield Plus Skin Protectant) 1 applic TOP Q8 [facility] Last Admin: 02/12/19 05:31 Dose: 1 applic Enoxaparin Sodium (Lovenox) 40 mg SC DAILY [facility]; Protocol Last Admin: 02/11/19 09:41 Dose: 40 mg Home Med (Letrozole [Femara]) 2.5 mg PO DAILY [facility] Cefepime HCl 1 gm/ Sodium (Chloride) 100 mls @ 100 mls/hr IVPB Q12 [facility]; Protocol Last Admin: 02/11/19 20:45 Dose: 100 mls/hr Metronidazole (Flagyl 500mg/100ml Ns) 100 mls @ 100 mls/hr IVPB Q8 [facility]; Protocol Last Admin: 02/12/19 01:41 Dose: 100 mls/hr Vancomycin HCl 1 gm/ Sodium (Chloride) 250 mls @ 166.667 mls/hr IVPB Q12@0400,1600 [facility]; Protocol Last Admin: 02/12/19 04:30 Dose: 166.667 mls/hr Metoprolol Tartrate (Lopressor) 25 mg PO Q12 [facility] Last Admin: 02/11/19 20:45 Dose: 25 mg Sodium Hypochlorite (Dakins Solution 0.25%) 1 ml TOP DAILY [facility] Last Admin: 02/11/19 12:16 Dose: 1 applic - Labs Labs: 02/11/19 19:49 02/11/19 19:49 PT 14.7 Seconds (9.8-13.1) H 02/09/19 04:45 INR 1.3 02/09/19 04:45 APTT 29.3 Seconds (25.6-37.1) 02/09/19 04:45 - Constitutional Appears: Well, Non-toxic, No Acute Distress - Head Exam Head Exam: ATRAUMATIC, NORMAL INSPECTION, NORMOCEPHALIC - Eye Exam Eye Exam: EOMI - ENT Exam ENT Exam: Mucous Membranes Moist - Respiratory Exam Respiratory Exam: NORMAL BREATHING PATTERN. absent: Wheezes, Respiratory Distress - GI/Abdominal Exam GI & Abdominal Exam: Soft, Normal Bowel Sounds. absent: Tenderness - Extremities Exam Extremities Exam: Normal Inspection - Back Exam Additional comments: 10x7cm sacral decubitus ulcer, nonviable tissue, no necrosis - Neurological Exam Neurological Exam: Alert, Awake - Psychiatric Exam Psychiatric exam: Normal Affect, Normal Mood Assessment and Plan - Assessment and Plan (Free Text) Assessment: 83F s/p debridement of sacral ulcer POD3 Plan: Wound vac was removed Patient may need additional debridement at bedside today Continue antibiotics Continue local wound care - wet to dry dressings Further recs per Dr. Aleksandar Williamson PGY1 <Jordon Huertas - Last Filed: 02/12/19 10:21> Objective - Vital Signs/Intake and Output Vital Signs (last 24 hours): Temp Pulse Resp BP Pulse Ox 99.9 F H 107 H 20 122/72 96 02/12/19 08:00 02/12/19 08:00 02/12/19 08:00 02/12/19 08:00 02/12/19 08:00 Intake and Output: 02/12/19 02/12/19 06:59 18:59 Intake Total 1250 Output Total 0 Balance 1250 - Medications Medications: Current Medications Acetaminophen (Tylenol 325mg Tab) 650 mg PO Q4 PRN PRN Reason: Fever >100.4 F Ascorbic Acid (Vitamin C 500 Mg Tab) 1,000 mg PO DAILY [facility] Last Admin: 02/11/19 09:41 Dose: 1,000 mg Cyanocobalamin (Vitamin B12 1000 Mcg Tab) 1,000 mcg PO DAILY [facility] Last Admin: 02/11/19 09:40 Dose: 1,000 mcg Dimethicone (Proshield Plus Skin Protectant) 1 applic TOP Q8 [facility] Last Admin: 02/12/19 05:31 Dose: 1 applic Enoxaparin Sodium (Lovenox) 40 mg SC DAILY [facility]; Protocol Last Admin: 02/11/19 09:41 Dose: 40 mg Home Med (Letrozole [Femara]) 2.5 mg PO DAILY [facility] Cefepime HCl 1 gm/ Sodium (Chloride) 100 mls @ 100 mls/hr IVPB Q12 [facility]; Protocol Last Admin: 02/11/19 20:45 Dose: 100 mls/hr Metronidazole (Flagyl 500mg/100ml Ns) 100 mls @ 100 mls/hr IVPB Q8 [facility]; Protocol Last Admin: 02/12/19 01:41 Dose: 100 mls/hr Vancomycin HCl 1 gm/ Sodium (Chloride) 250 mls @ 166.667 mls/hr IVPB Q12@0400,1600 [facility]; Protocol Last Admin: 02/12/19 04:30 Dose: 166.667 mls/hr Metoprolol Tartrate (Lopressor) 25 mg PO Q12 [facility] Last Admin: 02/11/19 20:45 Dose: 25 mg Sodium Hypochlorite (Dakins Solution 0.25%) 1 ml TOP DAILY [facility] Last Admin: 02/11/19 12:16 Dose: 1 applic - Labs Labs: 02/11/19 19:49 02/11/19 19:49 PT 14.7 Seconds (9.8-13.1) H 02/09/19 04:45 INR 1.3 02/09/19 04:45 APTT 29.3 Seconds (25.6-37.1) 02/09/19 04:45 Assessment and Plan - Assessment and Plan (Free Text) Plan: seen at bedside, resting comfortably. necrotic tissue debridement of necrotic tissue gen: awake, confused no acute respiratory distress skin: 13 cm x 8cm stage 4 decubitis ulcer, wound vac placed with good seal -cont abx -wound vac to be changed mwf -cont medical management
--- NOTE | 2019-02-12 09:10 | CP.PCM.PN ---
Subjective - Date & Time of Evaluation Date of Evaluation: 02/12/19 Time of Evaluation: 07:00 - Subjective Subjective: Juan A Davey, PGY1 Progress Note for Dr. Young: Pt was seen and examined this AM at bedside. Pt has no acute complaints at this time. Objective - Vital Signs/Intake and Output Vital Signs (last 24 hours): Temp Pulse Resp BP Pulse Ox 99.9 F H 107 H 20 122/72 96 02/12/19 08:00 02/12/19 08:00 02/12/19 08:00 02/12/19 08:00 02/12/19 08:00 Intake and Output: 02/12/19 02/12/19 06:59 18:59 Intake Total 1250 Output Total 0 Balance 1250 - Medications Medications: Current Medications Acetaminophen (Tylenol 325mg Tab) 650 mg PO Q4 PRN PRN Reason: Fever >100.4 F Ascorbic Acid (Vitamin C 500 Mg Tab) 1,000 mg PO DAILY [facility] Last Admin: 02/11/19 09:41 Dose: 1,000 mg Cyanocobalamin (Vitamin B12 1000 Mcg Tab) 1,000 mcg PO DAILY [facility] Last Admin: 02/11/19 09:40 Dose: 1,000 mcg Dimethicone (Proshield Plus Skin Protectant) 1 applic TOP Q8 [facility] Last Admin: 02/12/19 05:31 Dose: 1 applic Enoxaparin Sodium (Lovenox) 40 mg SC DAILY [facility]; Protocol Last Admin: 02/11/19 09:41 Dose: 40 mg Home Med (Letrozole [Femara]) 2.5 mg PO DAILY [facility] Cefepime HCl 1 gm/ Sodium (Chloride) 100 mls @ 100 mls/hr IVPB Q12 [facility]; Protocol Last Admin: 02/11/19 20:45 Dose: 100 mls/hr Metronidazole (Flagyl 500mg/100ml Ns) 100 mls @ 100 mls/hr IVPB Q8 [facility]; Protocol Last Admin: 02/12/19 01:41 Dose: 100 mls/hr Vancomycin HCl 1 gm/ Sodium (Chloride) 250 mls @ 166.667 mls/hr IVPB Q12@0400,1600 [facility]; Protocol Last Admin: 02/12/19 04:30 Dose: 166.667 mls/hr Metoprolol Tartrate (Lopressor) 25 mg PO Q12 [facility] Last Admin: 02/11/19 20:45 Dose: 25 mg Sodium Hypochlorite (Dakins Solution 0.25%) 1 ml TOP DAILY [facility] Last Admin: 02/11/19 12:16 Dose: 1 applic - Labs Labs: 02/11/19 19:49 02/11/19 19:49 PT 14.7 Seconds (9.8-13.1) H 02/09/19 04:45 INR 1.3 02/09/19 04:45 APTT 29.3 Seconds (25.6-37.1) 02/09/19 04:45 - Constitutional Appears: Non-toxic, No Acute Distress - Head Exam Head Exam: ATRAUMATIC, NORMAL INSPECTION, NORMOCEPHALIC - Eye Exam Eye Exam: EOMI, Normal appearance, PERRL - Respiratory Exam Respiratory Exam: Clear to Ausculation Bilateral, NORMAL BREATHING PATTERN. absent: Rales, Rhonchi, Wheezes - Cardiovascular Exam Cardiovascular Exam: RRR, +S1, +S2. absent: Gallop, Rubs - GI/Abdominal Exam GI & Abdominal Exam: Soft, Normal Bowel Sounds. absent: Firm, Guarding, Rigid, Tenderness - Back Exam Back Exam: absent: CVA tenderness (L), CVA tenderness (R) Additional comments: Large sacral decubitus ulcer, dressing intact. - Neurological Exam Neurological Exam: Alert, Awake, Oriented x3 - Psychiatric Exam Psychiatric exam: Normal Affect, Normal Mood - Skin Skin Exam: Dry, Normal Color, Warm Assessment and Plan - Assessment and Plan (Free Text) Assessment: Pt is an 83 yo F who presented for abd pain, diarrhea and has noted unstageable sacral decub ulcer. Plan: Cardiac risk stratification for surgery - Echo read per Dr. Young pt has intermediate cardiac risk for surgery. Hx of HTN: - Cont Lopressor 25 BID
[2019-02-12] MEDS: Enoxaparin 40 mg Syringe SC SCH (10:18)
[2019-02-12] MEDS: Cefepime 1 GM in Sodium Chloride 0.9% 100 ML IVPB SCH (10:18)
[2019-02-12] MEDS: Dakin's Topical 0.25%-Half Strength (480 ml) TOP SCH (10:20)
--- NOTE | 2019-02-12 11:05 | PCM.PPROG ---
History of Present Illness - History of Present Illness History of Present Illness: Patient is a 83 year old female who presented to the ED on 02/06/19 for abdominal pain, diarrhea, and weakness for the past several days. Patient is confused and can not give a proper history relating to her current condition. She had a prior admission for a fall in November and went to subacute rehab. Admitted for UTI and Sepsis. PMH:HTN, Breast Ca s/p chemo, Dementia, Brain mass Soc: Denies smoking, etoh, or drug abuse Fam: Unknown Review of Systems - Constitutional Constitutional: Fatigue - Musculoskeletal Musculoskeletal: Muscle Weakness Physical Exam - Constitutional Appears: No Acute Distress, Chronically Ill - Head Exam Head Exam: ATRAUMATIC, NORMAL INSPECTION, NORMOCEPHALIC - Eye Exam Eye Exam: PERRL - ENT Exam ENT Exam: Mucous Membranes Moist - Respiratory Exam Respiratory Exam: Decreased Breath Sounds - Cardiovascular Exam Cardiovascular Exam: Tachycardia - Psychiatric Exam Psychiatric exam: Flat Affect - Skin Skin Exam: Pallor, Warm Additional comments: has sacral wound Palliative Care Assessment - Modified MRC Dyspnea Scale Modified MRC Dyspnea Scale: Not troubled by breathlessness except on strenous exercise Grade: 1 - Pain Scale Pain Score: 0 Pain Scale Used: Numeric - Yong Scale Sensory Perception: No Impairment Moisture: Very Moist Activity: Bedfast Mobility: Very Limited Nutrition: Probably Inadequate Friction & Shear: Problem Total Score - Skin Risk Assessment: 12 - Psychosocial Distress Patient screened for psychosocial distress: Yes Palliative Care - Goals Goal(s) of care: Goals of Care: Patient currently does not have any POA, advanced directive or POLST, Jossue and daughter Suzie state that they are working on completing one with their learning facilitator . Patient being discharged to subacute rehab today. Code Status: Full Code at this time Treatment Goal(s): Alleviate symptoms, Improve ADLs, Improve quality of life Assessment & Plan - Assessment and Plan (Free Text) Assessment: Impression Confused Sacral wound Incontinence Decrease Mobility Suggestion Reorient and redirect as needed Continue Wound Care Reposition Q2h D/C to subacute rehab Thank You for this consult
[2019-02-12] MEDS ORDERED: Lidocaine Hydrochloride 5 ML INJ ONE (11:51)
--- NOTE | 2019-02-12 12:26 | CP.PCM.PN ---
Subjective - Date & Time of Evaluation Date of Evaluation: 02/12/19 Time of Evaluation: 08:00 - Subjective Subjective: blood c/s positive cont rx as ordered rx as OM Objective - Vital Signs/Intake and Output Vital Signs (last 24 hours): Temp Pulse Resp BP Pulse Ox 100.6 F H 88 20 170/89 H 95 02/12/19 12:15 02/12/19 12:15 02/12/19 12:15 02/12/19 12:15 02/12/19 12:15 Intake and Output: 02/12/19 02/12/19 06:59 18:59 Intake Total 1250 Output Total 0 Balance 1250 - Medications Medications: Current Medications Acetaminophen (Tylenol 325mg Tab) 650 mg PO Q4 PRN PRN Reason: Fever >100.4 F Ascorbic Acid (Vitamin C 500 Mg Tab) 1,000 mg PO DAILY [facility] Last Admin: 02/12/19 10:21 Dose: 1,000 mg Cyanocobalamin (Vitamin B12 1000 Mcg Tab) 1,000 mcg PO DAILY [facility] Last Admin: 02/12/19 10:21 Dose: 1,000 mcg Dimethicone (Proshield Plus Skin Protectant) 1 applic TOP Q8 [facility] Last Admin: 02/12/19 10:22 Dose: 1 applic Enoxaparin Sodium (Lovenox) 40 mg SC DAILY [facility]; Protocol Last Admin: 02/12/19 10:18 Dose: 40 mg Home Med (Letrozole [Femara]) 2.5 mg PO DAILY [facility] Cefepime HCl 1 gm/ Sodium (Chloride) 100 mls @ 100 mls/hr IVPB Q12 [facility]; Protocol Last Admin: 02/12/19 10:18 Dose: 100 mls/hr Metronidazole (Flagyl 500mg/100ml Ns) 100 mls @ 100 mls/hr IVPB Q8 [facility]; Protocol Last Admin: 02/12/19 10:16 Dose: 100 mls/hr Vancomycin HCl 1 gm/ Sodium (Chloride) 250 mls @ 166.667 mls/hr IVPB Q12@0400,1600 [facility]; Protocol Last Admin: 02/12/19 04:30 Dose: 166.667 mls/hr Metoprolol Tartrate (Lopressor) 25 mg PO Q12 [facility] Last Admin: 02/12/19 10:17 Dose: 25 mg Sodium Hypochlorite (Dakins Solution 0.25%) 1 ml TOP DAILY [facility] Last Admin: 02/12/19 10:20 Dose: 1 applic - Labs Labs: 02/11/19 19:49 02/11/19 19:49 PT 14.7 Seconds (9.8-13.1) H 02/09/19 04:45 INR 1.3 02/09/19 04:45 APTT 29.3 Seconds (25.6-37.1) 02/09/19 04:45 Assessment and Plan (1) Sepsis Status: Acute (2) UTI (urinary tract infection) Status: Acute (3) Altered mental state Status: Acute (4) Mass of brain Status: Acute (5) Dehydration Status: Resolved
--- NOTE | 2019-02-12 12:26 | PCM.SURG1 ---
Surgeon's Initial Post Op Note - Surgeon's Notes Surgeon: Devang Aguilar MD Typing Secretary: NONE Type of Anesthesia: Local Pre-Operative Diagnosis: Infection, ulcer Operative Findings: US showed a patent right basilic vein Post-Operative Diagnosis: Infection, ulcer Operation Performed: Single lumen picc placement right basilic vein, 35 cm Specimen/Specimens Removed: None Estimated Blood Loss: EBL {In ML}: 2 Blood Products Given: N/A Drains Used: No Drains Post-Op Condition: Fair Date of Surgery/Procedure: 02/12/19 Time of Surgery/Procedure: 12:20
--- NOTE | 2019-02-12 12:38 | VASCULAR ---
PROCEDURE: Date of procedure: 02/12/2019 Procedure: 1. Placement of a right arm PICC with ultrasound and fluoroscopic guidance, CPT 90248 2. PICC tip confirmation with spot radiograph and is in the superior vena cava Medications: 1 percent lidocaine Total Fluoro time: 2.3 Seconds Radiation: 0.17 MGy EBL: 2 cc HISTORY: Infection requiring long-term IV antibiotics TECHNIQUE: Following informed consent and procedure time-out, the patient was placed supine on the interventional table and the right arm prepped and draped in the usual sterile fashion. Ultrasound showed a patent and compressible right basilic vein. After the skin was anesthetized with lidocaine, the basilic vein was accessed with micro micropuncture technique using ultrasound guidance. A guidewire was then advanced under fluoroscopic guidance into the superior vena cava. An image documenting ultrasound guidance for vascular access was permanently saved. The length of the single-lumen 4 [place] PICC was trimmed to 35 centimeters and advanced through a peel-away sheath. The PICC was position with tip of PICC confirm a spot radiograph the superior vena cava. The PICC was secured to the patient's skin. The PICC was flushed. A biopatch and sterile dressing was applied. IMPRESSION: Placement of a single-lumen 4 [place] PICC trimmed to 35 centimeters via right basilic vein. The tip of the PICC is confirmed with spot radiograph and is in the superior vena cava.
--- NOTE | 2019-02-12 13:41 | CP.PCM.DIS ---
Provider - Provider Date of Admission: 02/06/19 09:29 Attending physician: iRkki Quinteros MD Consults: 02/06/19 09:26 Infectious Disease Consult Stat Comment: Consulting Provider: Rafal Chu Consulting Physician: Rafal Chu Reason for Consult: Sepsis, UTI, sacral decubitus 02/06/19 10:38 Wound Care [Nursing Referral for Wound Care] Routine Comment: Physician Instructions: Reason For Exam: sacral wound 02/06/19 12:57 Wound Care [Nursing Referral for Wound Care] Routine Comment: Physician Instructions: Reason For Exam: sacral decubitus 02/06/19 13:49 Palliative Care Consult Routine Comment: Consulting Provider: Syeda Pimentel Physician Instructions: Reason For Exam: breast ca, with brain mass 02/06/19 17:57 Nursing Referral for Wound Care Routine Comment: Physician Instructions: Reason For Exam: unstageable pressure ulcer tothe sacrum 02/06/19 17:58 Pastoral Care Referral Routine Comment: Physician Instructions: Reason For Exam: Evaluation 02/07/19 08:42 Social Work Referral Routine Comment: ritika Physician Instructions: Reason For Exam: DISCUS DISPOSITION WITH FAMILY 02/08/19 14:27 Cardiology Consult Routine Comment: Consulting Provider: Ruben Young Consulting Physician: Ruben Young Reason for Consult: cardiac clearence for surgical debridement 02/09/19 13:15 Surgical [General Surgery Consult] Routine Comment: Consulting Provider: Kurt Arreola Consulting Physician: Kurt Arreola Reason for Consult: Stage 4 decubitus ulcer 02/09/19 14:08 Wound Care [Nursing Referral for Wound Care] Routine Comment: Physician Instructions: Reason For Exam: patient needs wound vac s/p debridement sacral [facility] Time Spent in preparation of Discharge (in minutes): 35 Diagnosis - Discharge Diagnosis (1) Sepsis Status: Acute Comment: empric treatment for osteomyelitis with 6 wk IV antibiotics - cefepime/vanco/flagyl (2) Sacral decubitus ulcer Status: Chronic Comment: s/p wound debridement, c/w antibiotics and local wound care. wound vac was removed (3) Mass of brain Status: Chronic Comment: no intervention Hospital Course - Lab Results Lab Results: Micro Results 02/06/19 04:30 Blood Blood Culture - Final Coagulase Neg Staphylococcus 02/06/19 04:30 Blood Gram Stain - Final 02/11/19 06:18 Blood Blood Culture - Preliminary NO GROWTH AFTER 24 HOURS 02/11/19 06:08 Blood Blood Culture - Preliminary NO GROWTH AFTER 24 HOURS 02/06/19 04:00 Blood Blood Culture - Final NO GROWTH AFTER 5 DAYS 02/06/19 04:00 Blood Gram Stain - Final TEST NOT PERFORMED 02/06/19 07:10 Urine,Catheterized Urine Culture - Final No Growth (<1,000 CFU/ML) Most Recent Lab Values WBC 8.9 K/uL (4.8-10.8) 02/11/19 19:49 RBC 3.79 Mil/uL (3.80-5.20) L 02/11/19 19:49 Hgb 10.9 g/dL (12.0-16.0) L 02/11/19 19:49 Hct 33.2 % (34.0-47.0) L 02/11/19 19:49 MCV 87.6 fl (81.0-99.0) 02/11/19 19:49 MCH 28.8 pg (27.0-31.0) 02/11/19 19:49 MCHC 32.9 g/dL (33.0-37.0) L 02/11/19 19:49 RDW 14.9 % (11.5-14.5) H 02/11/19 19:49 Plt Count 349 K/uL (130-400) 02/11/19 19:49 MPV 7.7 fl (7.2-11.7) 02/09/19 04:45 Neut % (Auto) 71.8 % (50.0-75.0) 02/09/19 04:45 Lymph % (Auto) 15.0 % (20.0-40.0) L 02/09/19 04:45 [place] % (Auto) 8.4 % (0.0-10.0) 02/09/19 04:45 Eos % (Auto) 4.5 % (0.0-4.0) H 02/09/19 04:45 Baso % (Auto) 0.3 % (0.0-2.0) 02/09/19 04:45 Neut # (Auto) 6.5 K/uL (1.8-7.0) 02/09/19 04:45 Lymph # (Auto) 1.4 K/uL (1.0-4.3) 02/09/19 04:45 [place] # (Auto) 0.8 K/uL (0.0-0.8) 02/09/19 04:45 Eos # (Auto) 0.4 K/uL (0.0-0.7) 02/09/19 04:45 Baso # (Auto) 0.0 K/uL (0.0-0.2) 02/09/19 04:45 Neutrophils % (Manual) 80 % (42-75) H 02/06/19 04:00 Band Neutrophils % 6 % (0-2) H 02/06/19 04:00 Lymphocytes % (Manual) 5 % (20-50) L 02/06/19 04:00 Monocytes % (Manual) 6 % (0-10) 02/06/19 04:00 Metamyelocytes % 2 % (0-0) H 02/06/19 04:00 Myelocytes % 1 % (0-0) H 02/06/19 04:00 Smudge Cells Present 02/06/19 04:00 Toxic Granulation Present 02/06/19 04:00 Platelet Estimate Normal (NORMAL) 02/06/19 04:00 RBC Morphology Normal (NORMAL) 02/06/19 04:00 PT 14.7 Seconds (9.8-13.1) H 02/09/19 04:45 INR 1.3 02/09/19 04:45 APTT 29.3 Seconds (25.6-37.1) 02/09/19 04:45 pO2 23 mm/Hg (30-55) L 02/06/19 08:57 VBG pH 7.38 (7.32-7.43) 02/06/19 08:57 VBG pCO2 53 mmHg (40-60) 02/06/19 08:57 VBG HCO3 26.7 mmol/L 02/06/19 08:57 VBG Total CO2 33.0 mmol/L (22-28) H 02/06/19 08:57 VBG O2 Sat (Calc) 37.8 % (40-65) L 02/06/19 08:57 VBG Base Excess 4.7 mmol/L (0.0-2.0) H 02/06/19 08:57 VBG Potassium 3.7 mmol/L (3.6-5.2) 02/06/19 08:57 Sodium 139.0 mmol/L (132-148) 02/06/19 08:57 Chloride 100.0 mmol/L (98-107) 02/06/19 08:57 Glucose 111 mg/dL (65-105) H 02/06/19 08:57 Lactate 2.4 mmol/L (0.7-2.1) H 02/06/19 08:57 FiO2 21.0 % 02/06/19 08:57 Sodium 138 mmol/l (132-148) 02/11/19 19:49 Potassium 4.5 MMOL/L (3.6-5.0) 02/11/19 19:49 Chloride 106 mmol/L (98-107) 02/11/19 19:49 Carbon Dioxide 27 mmol/L (22-30) 02/11/19 19:49 Anion Gap 10 (10-20) 02/11/19 19:49 BUN 20 mg/dl (7-17) H 02/11/19 19:49 Creatinine 0.6 mg/dl (0.7-1.2) L 02/11/19 19:49 Est GFR ( Amer) > 60 02/11/19 19:49 Est GFR (Non-Af Amer) > 60 02/11/19 19:49 Random Glucose 169 mg/dL (65-105) H 02/11/19 19:49 Lactic Acid 1.0 mmol/L (0.7-2.1) 02/07/19 04:30 Calcium 8.2 mg/dL (8.4-10.2) L 02/11/19 19:49 Phosphorus 2.7 mg/dl (2.5-4.5) 02/09/19 04:45 Magnesium 1.6 MG/DL (1.6-2.3) 02/09/19 04:45 Total Bilirubin 0.4 mg/dl (0.2-1.3) 02/09/19 04:45 AST 40 U/L (14-36) H 02/09/19 04:45 ALT 38 U/L (9-52) 02/09/19 04:45 Alkaline Phosphatase 71 U/L (38-126) 02/09/19 04:45 Total Protein 5.5 G/DL (6.3-8.2) L 02/09/19 04:45 Albumin 2.5 g/dL (3.5-5.0) L 02/09/19 04:45 Globulin 3.0 gm/dL (2.2-3.9) 02/09/19 04:45 Albumin/Globulin Ratio 0.9 (1.0-2.1) L 02/09/19 04:45 Venous Blood Potassium 3.7 mmol/L (3.6-5.2) 02/06/19 08:57 Urine Color Yellow (YELLOW) 02/06/19 07:10 Urine Clarity Slighty-cloudy (Clear) 02/06/19 07:10 Urine pH 5.0 (5.0-8.0) 02/06/19 07:10 Ur Specific [place] 1.021 (1.003-1.030) 02/06/19 07:10 Urine Protein 100 mg/dL (NEGATIVE) 02/06/19 07:10 Urine Glucose (UA) Neg mg/dL (NEGATIVE) 02/06/19 07:10 Urine Ketones Negative mg/dL (NEGATIVE) 02/06/19 07:10 Urine Blood Small (NEGATIVE) 02/06/19 07:10 Urine Nitrate Negative (NEGATIVE) 02/06/19 07:10 Urine Bilirubin Negative (NEGATIVE) 02/06/19 07:10 Urine Urobilinogen 0.2-1.0 mg/dL (0.2-1.0) 02/06/19 07:10 Ur Leukocyte Esterase Neg Roger/uL (Negative) 02/06/19 07:10 Urine RBC (Auto) 4 /hpf (0-3) H 02/06/19 07:10 Urine Microscopic WBC 3 /hpf (0-5) 02/06/19 07:10 Ur Squamous Epith Cells 1 /hpf (0-5) 02/06/19 07:10 Urine Bacteria Few (<OCC) H 02/06/19 07:10 C. 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 She was treated with Cefepime, flagyl and vancomycin. Patient is s/p wound debridement, currently on abx treatment. Afebrile, hemodynamically stable. Stage 4 her sacral ulceration, emperic treatment for osteomyelitis for a total of 6 weeks was recommended by ID, Dr. Chu with current antibiotic regimen (cefepime/flagyl/vancomycin). Patient has breast mass - no intervention desired by family. Sepsis with dehydration, ?secondary to decubitus ulcer HTN Dementia Anemia Hypokalemia Brain Mass Dvt prophylaxis Patient discharged to for continued abx treatment and rehabilitation. Discharge Exam - Head Exam Head Exam: ATRAUMATIC, NORMAL INSPECTION, NORMOCEPHALIC - Eye Exam Eye Exam: Normal appearance - Respiratory Exam Respiratory Exam: Clear to PA & Lateral, NORMAL BREATHING PATTERN - Cardiovascular Exam Cardiovascular Exam: REGULAR RHYTHM - GI/Abdominal Exam GI & Abdominal Exam: Soft. absent: Distended, Guarding - Back Exam Additional comments: not examined, patient non cooperative with turning for exam - Psychiatric Exam Psychiatric exam: Depressed - Skin Additional comments: noncooperative with exam, unable to assess scar. Discharge Plan - Discharge Medications Prescriptions: Cefepime 1gm in NS 100ml [Maxipime 1gm] 1 gm IVPB Q12 42 Days bag metroNIDAZOLE 500mg/100ml NS [Flagyl 500MG/100ML NS] 500 mg IVPB Q8 42 Days bag Vancomycin/0.9 % Sod Chloride [Vanco 1 Gram/250 ml-0.9% NaCl] 1 gm IV Q12 42 Days plast..bag - Follow Up Plan Condition: GUARDED Disposition: REHAB FACILITY/REHAB UNIT Instructions: Urinary Tract Infection, Adult (DC), Altered Mental Status (DC), Sepsis, Adult (DC) Referrals: Rikki Quinteros MD [Staff Provider] -
[2019-02-12 15:49] VITALS: BP 138/77; PULSE 124; RESP 18; TEMP 98.2; O2SAT 97
--- NOTE | 2019-02-14 09:32 | PQF ---
PROVIDER RESPONSE TEXT: AGREE WITH DIAGNOSIS OF PRESSURE ULCERSOF DTI-L HEEL REVIEWER QUERY TEXT: Pressure Ulcer Type 2 (two) queries: 1) Pressure ulcer versus other etiology: (coded to contusion) of DTI on left heel? : If in agreem ent: OR: Disagree versus OR: other explanation of clinical finding 2) POA? 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: 0.3 x 0.2 DTI on left heel Stage of each pressure ulcer (National Pressure Ulcer Advisory Panel definitions): -- Stage I: Intact skin with non-blanchable redness of a localized area -- Stage II: Partial thickness skin loss involving dermis with a shallow open ulcer or an open serum -filled blister -- Stage III: Full thickness skin loss involving damage or necrosis of subcutaneous tissue -- Stage IV: Full thickness skin loss with exposed bone, tendon or muscle -- Unstageable: Full thickness tissue loss in which the base of the ulcer is covered by slough and/o r eschar in the wound bed The patient's Clinical Indicators include: -- Query created by: Blessing Tuttle on 02/07/2019 3:29 PM Electronically signed by: Rikki Quinteros MD 02/14/2019 9:29 AM
== END 2019-02-12 18:10 | DRG 853 ==
LOC: H.ER 02:54 → H.ERHOLD 09:29 → H.TEL 12:47
PROVIDERS: ADMIT Internal Medicine Pulmonary Disease; ATTEND Internal Medicine Pulmonary Disease
PROC: 0JB70ZZ Excision of Back Subcutaneous Tissue and Fascia, Open Approach (ICD-10-PCS; principal; 2019-02-09 10:00)
PROC: 02HV33Z Insertion of Infusion Device into Superior Vena Cava, Percutaneous Approach (ICD-10-PCS; 2019-02-11)
PROC: B518ZZA Fluoroscopy of Superior Vena Cava, Guidance (ICD-10-PCS; 2019-02-11)
PROC: B548ZZA Ultrasonography of Superior Vena Cava, Guidance (ICD-10-PCS; 2019-02-11)
PROC: 3E04329 Introduction of Other Anti-infective into Central Vein, Percutaneous Approach (ICD-10-PCS; 2019-02-11)
DX: A41.9 Sepsis, unspecified organism (principal); L89.154 Pressure ulcer of sacral region, stage 4; I96 Gangrene, not elsewhere classified; N39.0 Urinary tract infection, site not specified; M86.8X8 Other osteomyelitis, other site; D62 Acute posthemorrhagic anemia; E87.6 Hypokalemia; E86.0 Dehydration; G30.9 Alzheimer's disease, unspecified; F02.80 Dementia in other diseases classified elsewhere, unspecified severity, without behavioral disturbance, psychotic disturbance, mood disturbance, and anxiety; B95.7 Other staphylococcus as the cause of diseases classified elsewhere; L89.620 Pressure ulcer of left heel, unstageable; E53.8 Deficiency of other specified B group vitamins; D49.6 Neoplasm of unspecified behavior of brain; R26.89 Other abnormalities of gait and mobility; R33.8 Other retention of urine; I44.7 Left bundle-branch block, unspecified; R41.82 Altered mental status, unspecified; I10 Essential (primary) hypertension; K80.20 Calculus of gallbladder without cholecystitis without obstruction; Z91.81 History of falling; Z85.3 Personal history of malignant neoplasm of breast; Z92.21 Personal history of antineoplastic chemotherapy